=== PATIENT | female | born 1930 | race Caucasian/White ===

== ENCOUNTER 2017-01-20 18:34 | Observation (INO) | payer OTHER ==
[2017-01-20 20:15] LABS: BASOPHIL 0.4 % (0-2.0); EOSINOPHIL 1.7 % (0-4.5); MCH 27.8 pg (25.7-33.7); MCHC 32.8 g/dl (32.0-36.0); MEAN CELL VOLUME 84.9 fl (80-96); MEAN PLT VOLUME 9.2 fl (7.5-11.1); NEUTROPHILS 77.7 % (42.8-82.8); PLATELET COUNT 167 K/MM3 (134-434); RDW 16.2 % (11.6-15.6); WHITE BLOOD COUNT 5.8 K/mm3 (4.0-10.0)
--- NOTE | 2017-01-20 20:30 | PDOC ---
History of Present Illness <Raman Cabrera - Last Filed: 01/20/17 20:57> - General History Source: Patient, Family (Daughter), Old Records Exam Limitations: No Limitations - History of Present Illness Initial Comments: 01/20/17 21:59 The patient is an 86 year old female, with a significant past medical history of hypertension, hyperlipidemia, diabetes and Parkinsons disease, who presents to the emergency department sent by her PCP (Dr. Valentino) for evaluation and likely admission secondary to right hip pain s/p a mechanical trip and fall approximately 9 days ago. The patients daughter is at the bedside. She reports that the patient had outpatient x-rays of the right knee and right hip done after she fell, which were both negative for any acute fracture or dislocation. When the right hip pain persisted, the patient was referred for an MRI but was unable to undergo an MRI as an outpatient due to anxiety and claustrophobia. Therefore, the patient presents to the ED for likely admission to receive the MRI with sedation. The patient denies any extremity numbness/tingling. The patient denies back pain. The patients daughter is at the bedside. Allergies: None reported. Past Surgical History: Appendectomy. Social History: Non smoker. Denies alcohol or drug use. PCP: Dr. Valentino <Georgiana Vega - Last Filed: 01/21/17 00:58> - General Chief Complaint: Pain Stated Complaint: PCP ADMIT Time Seen by Provider: 01/20/17 19:32 Past History - Past Medical History Diabetes: Yes HTN: Yes - Surgical History Appendectomy: Yes - Psycho/Social/Smoking Cessation Hx Anxiety: No Suicidal Ideation: No Smoking Status: No Smoking History: Never smoked Have you smoked in the past 12 months: No Number of Cigarettes Smoked Daily: 0 Information on smoking cessation initiated: No Hx Alcohol Use: No Drug/Substance Use Hx: No Substance Use Type: None <Raman Cabrera - Last Filed: 01/20/17 20:57> <Georgiana Vega - Last Filed: 01/21/17 00:58> - Past Medical History Allergies/Adverse Reactions: Allergies Allergy/AdvReac Type Severity Reaction Status Date / Time No Known Allergies Allergy Verified 01/20/17 18:45 Home Medications: Ambulatory Orders Aspirin [Aspirin EC] 81 mg PO HS 01/20/17 Atorvastatin Ca [Lipitor] 10 mg PO HS 01/20/17 Carbidopa/Levodopa *Cr* 25/100 [Sinemet *Cr* 25/100 -] 1 combo PO BID 01/20/17 Carbidopa/Levodopa [Carbidopa-Levo 25-100 mg Odt] 1.5 mg PO QID 01/20/17 Cholecalciferol (Vitamin D3) [Vitamin D3 -] 1,000 unit PO DAILY 01/20/17 Duloxetine HCl [Cymbalta] 60 mg PO DAILY 01/20/17 Furosemide [Lasix] 20 mg PO DAILY 01/20/17 Gabapentin [Neurontin -] 100 mg PO DAILY 01/20/17 Metformin HCl 1,000 mg PO BID 01/20/17 Potassium Chloride [K-Dur -] 20 meq PO DAILY 01/20/17 Pramipexole Dihydrochloride [Mirapex -] 0.125 mg PO DAILY 01/20/17 Rotigotine [Neupro] 8 mg TD DAILY 01/20/17 Ubidecarenone/Vitamin E [Co Q-10 50 mg Softgel] 1 each PO DAILY 01/20/17 Vitamin B Complex [Ultra B-100 Complex] 1 each PO DAILY 01/20/17 Review of Systems - Review of Systems Able to Perform ROS?: Yes Comments:: 01/20/17 21:08 CONSTITUTIONAL: No fever, no chills, no fatigue EYES: No visual changes ENT: No ear pain, no sore throat CARDIOVASCULAR: No chest pain, no palpitations RESPIRATORY: No cough, no SOB GI: No abdominal pain, no nausea, no vomiting, no constipation, no diarrhea GENITOURINARY: No dysuria, no frequency, no hematuria MUSCULOSKELETAL: +Right hip pain. No back pain, no myalgias SKIN: No rash NEURO: No headache <Georgiana Vega - Last Filed: 01/21/17 00:58> *Physical Exam - Vital Signs Last Vital Signs Temp Pulse Resp BP Pulse Ox 98 F 79 18 146/69 100 01/20/17 18:45 01/20/17 18:45 01/20/17 18:45 01/20/17 18:45 01/20/17 18:45 <Raman Cabrera - Last Filed: 01/20/17 20:57> - Vital Signs Last Vital Signs Temp Pulse Resp BP Pulse Ox 98 F 79 18 146/69 100 01/20/17 18:45 01/20/17 18:45 01/20/17 18:45 01/20/17 18:45 01/20/17 18:45 - Physical Exam Comments: 01/21/17 00:58 CONSTITUTIONAL: Well-appearing; well-nourished; in no apparent distress. HEAD: Normocephalic; atraumatic. EYES: PERRL; EOM intact. ENMT: External appears normal; normal oropharynx. NECK: Supple; non-tender; no cervical lymphadenopathy. CARD: Normal S1, S2; no murmurs, rubs, or gallops. RESP: Normal chest excursion with respiration; breath sounds clear and equal bilaterally; no wheezes, rhonchi, or rales. ABD: Soft, non-distended; non-tender; no palpable organomegaly, no palpable hernias. EXT: No obvious deformity. Pain to right proximal hip and pain with log roll of the right lower extremity. Distal pulses intact. SKIN: Warm, dry, no rash. NEURO: Resting tremor bilaterally, more pronounced on the left. Cogwheel rigidity. No focal neurological deficiencies. Normal speech, gait deferred. <Georgiana Vega - Last Filed: 01/21/17 00:58> Heart Score/ECG Review #1 ECG reviewed & interpreted by me at: 19:51 (Vent Rate: 81 bpm. Normal sinus rhythm. Left axis deviation.) <Georgiana Vega - Last Filed: 01/21/17 00:58> ED Treatment Course - LABORATORY CBC & Chemistry Diagram: 01/20/17 20:00 01/20/17 20:00 - ADDITIONAL ORDERS Additional order review: 01/20/17 20:00 RBC 4.23 MCV 84.9 MCHC 32.8 RDW 16.2 H MPV 9.2 Neutrophils % 77.7 Lymphocytes % 14.3 Monocytes % 5.9 Eosinophils % 1.7 Basophils % 0.4 <Raman Cabrera - Last Filed: 01/20/17 20:57> - LABORATORY CBC & Chemistry Diagram: 01/20/17 20:00 01/20/17 20:00 - ADDITIONAL ORDERS Additional order review: 01/20/17 20:00 RBC 4.23 MCV 84.9 MCHC 32.8 RDW 16.2 H MPV 9.2 Neutrophils % 77.7 Lymphocytes % 14.3 Monocytes % 5.9 Eosinophils % 1.7 Basophils % 0.4 <Georgiana Vega - Last Filed: 01/21/17 00:58> Medical Decision Making - Medical Decision Making 01/20/17 20:58 patient is an 86-year-old female with History of diabetes, hypertension and hyperlipidemia referred by Dr. Serna orthopedics for intractable right hip pain after an injury 9 days ago. Patient underwent initial radiological evaluation with x-rays which revealed no evidence of fracture or dislocation. Patient was referred for further evaluation with MRI. Patient will require sedation prior to undergoing the MRI due to anxiety and claustrophobia. <Raman Cabrera - Last Filed: 01/20/17 20:57> - Medical Decision Making 01/20/17 20:[address] Valentino at 20:43. Referred to answering service, awaiting call back. Dr. Ochoa returned call at 20:52, case discussed. <Georgiana Vega - Last Filed: 01/21/17 00:58> *DC/Admit/Observation/Transfer - Discharge Dispostion Admit: Yes - Attestations Physician Attestion: 01/20/17 20:58 The documentation was prepared by the scribe under my direct supervision. I have reviewed the documentation which correctly represents the findings, medical decision-making and critical action taken by me. <Raman Cabrera - Last Filed: 01/20/17 20:57> - Attestations Scribe Attestion: 01/20/17 20:33 Documentation prepared by Georgiana Vega, acting as biomedical engineering internship for Raman Cabrera MD. <Georgiana Vega - Last Filed: 01/21/17 00:58> Diagnosis at time of Disposition: Intractable pain Hip injury Qualifiers: Encounter type: sequela Laterality: right Qualified Code(s): S79.911S - Unspecified injury of right hip, sequela - Referrals
[2017-01-20 20:34] LABS: INR 1.13 (0.82-1.09); PROTHROMBIN TIME (PATIENT) 12.5 SEC (9.98-11.88)
[2017-01-20 20:43] LABS: ALBUMIN 4.2 g/dl (3.4-5.0); ANION GAP 10 (8-16); BILIRUBIN,TOTAL 0.7 mg/dL (0.2-1.0); CO2 26 mmol/L (21-32); COCKROFT - GAULT 103.1135; CREATININE 0.6 mg/dL (0.55-1.02); GLUCOSE,RANDOM 132 mg/dL (74-106); SGOT/AST 17 U/L (15-37); SGPT/ALT 9 U/L (12-78); TOT PROT 7.1 g/dl (6.4-8.2)
[2017-01-20 20:44] LABS: ALK PHOS 99 U/L (45-117)
[2017-01-20] MEDS ORDERED: ONDANSETRON 4 MG/2 ML VIAL IVPB PRN (20:53)
[2017-01-20] MEDS ORDERED: oxyCODONE HCL 5 MG TABLET PO PRN (20:53)
[2017-01-20] MEDS ORDERED: ACETAMINOPHEN 325 MG TABLET (FP) PO PRN (20:53)
[2017-01-20] MEDS ORDERED: LEVODOPA PO SCH (21:00)
[2017-01-20] MEDS ORDERED: CARBIDOPA PO SCH (21:00)
[2017-01-20] MEDS ORDERED: [UNRECOGNIZED DRUG - OTHER] PO SCH (21:00)
[2017-01-20] MEDS ORDERED: CARBIDOPA/LEVODOPA 25/100 TABLET (FP) ONE (21:02)
[2017-01-20] MEDS: INSULIN SLIDING SCALE (NOVOLOG) 1 VIAL SQ SCH (23:04)
[2017-01-20] MEDS: DOCUSATE SODIUM 100 MG CAPSULE (FP) PO SCH (23:07)
[2017-01-20] MEDS: metFORMIN HCL 500 MG TABLET (FP) PO SCH (23:07)
[2017-01-20] MEDS: ATORVASTATIN CA 10 MG TABLET (FP) PO SCH (23:08)
[2017-01-21] MEDS: ASPIRIN COATED 81 MG TABLET.EC PO SCH ×2 (00:09→22:43)
[2017-01-21 05:19] VITALS: BMI 40.3
[2017-01-21] MEDS: INSULIN SLIDING SCALE (NOVOLOG) 1 VIAL SQ SCH ×4 (06:22→22:35)
[2017-01-21] MEDS: CARBIDOPA/LEVODOPA 25/100 TABLET (FP) PO SCH ×4 (08:15→20:06)
[2017-01-21] MEDS ORDERED: LORazepam 1 MG TABLET PO ONE ×2 (09:10→20:00)
[2017-01-21] MEDS ORDERED: GABAPENTIN 100 MG CAPSULE (FP) PO SCH (10:00)
[2017-01-21] MEDS ORDERED: ASPIRIN COATED 81 MG TABLET.EC PO SCH (10:00)
[2017-01-21] MEDS ORDERED: DULoxetine HCL 30 MG CAPSULE.DR (FP) PO SCH ×2 (10:00→11:21)
[2017-01-21] MEDS ORDERED: POTASSIUM CHLORIDE TABS 20 MEQ TABLET.ER (FP) PO SCH (10:00)
[2017-01-21] MEDS ORDERED: CHOLECALCIFEROL (VITAMIN D3) 400 UNIT TABLET (FP) PO SCH (10:00)
[2017-01-21] MEDS ORDERED: metFORMIN HCL 500 MG TABLET (FP) PO SCH (11:21)
[2017-01-21] MEDS ORDERED: INSULIN (NOVOLOG) ASPART 100 UNITS/ML 10ML VIAL ONE (11:22)
--- NOTE | 2017-01-21 11:24 | EKG ---
Test Reason : Blood Pressure : / mmHG Vent. Rate : 081 BPM Atrial Rate : 081 BPM P-R Int : 138 ms QRS Dur : 082 ms QT Int : 376 ms P-R-T Axes : 029 -37 029 degrees QTc Int : 436 ms NORMAL SINUS RHYTHM LEFT AXIS DEVIATION ABNORMAL ECG WHEN COMPARED WITH ECG OF 18-SEP-1997 10:38, NONSPECIFIC T WAVE ABNORMALITY NO LONGER EVIDENT IN INFERIOR LEADS Confirmed by DAVONTE MILNER MD ([id number]) on 01/21/2017 11:24:02 AM Referred By: Confirmed By:DAVONTE MILNER MD
[2017-01-21] MEDS: PRAMIPEXOLE DIHYDROCHLORIDE 0.125 MG TABLET PO SCH (11:30)
[2017-01-21] MEDS: FUROSEMIDE 20 MG TABLET (FP) PO SCH (11:31)
[2017-01-21] MEDS: DOCUSATE SODIUM 100 MG CAPSULE (FP) PO SCH ×3 (11:31→22:46)
[2017-01-21] MEDS: metFORMIN HCL 500 MG TABLET (FP) PO SCH ×2 (11:32→22:43)
[2017-01-21] MEDS: ENOXAPARIN NA (PORCINE) 40 MG/0.4 ML DISP.SYRIN SQ SCH (11:40)
[2017-01-21] MEDS: POLYETHYLENE GLYCOL 3350 119 GM BTL PO SCH (11:47)
--- NOTE | 2017-01-21 11:55 | HP ---
Admitting History and Physical - Primary Care Physician PCP: Seferino Valentino - Admission Chief Complaint: I fell History of Present Illness: Ms Albetrs is a very pleasant 86 year old female who was sent in by Dr Woodruff for concern for hip fracture. 9 days ago she was in the kitchen and sustained a mechanical fall. She denies the fall was secondary to syncope. She did not sustain head trauma. Originally she felt fine but the pain was increasing so she presented to Dr Valentino. She was then referred to Dr Woodruff who attempted to perform an MRI as an outpatient but was unsuccessful secondary to anxiety. She was referred here for admission since hip needs to be evaluated and it was unsuccessful as an outpatient. Today she says she feels weak and has pain. She has been able to walk. She denies fevers, chills, lightheadedness, dizziness, passing out, chest pain or pressure, shortness of breath, nausea, vomiting, diarrhea, constipation, difficulty or pain on urination, or swelling. 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 Cardiovascular: Yes: HTN, Hyperlipdemia ...: No Endocrine: Yes: Diabetes Mellitus - Past Surgical History Past Surgical History: Yes: Cataract Removal - Smoking History Smoking history: Never smoked Have you smoked in the past 12 months: No Aproximately how many cigarettes per day: 0 - Alcohol/Substance Use Hx Alcohol Use: No History of Substance Use: reports: None - Social History Usual Living Arrangement: Yes: Alone ADL: Independent Home Medications - Allergies Allergies/Adverse Reactions: Allergies Allergy/AdvReac Type Severity Reaction Status Date / Time No Known Allergies Allergy Verified 01/20/17 18:45 - Home Medications Home Medications: Ambulatory Orders Aspirin [Aspirin EC] 81 mg PO HS 01/20/17 Atorvastatin Ca [Lipitor] 10 mg PO HS 01/20/17 Carbidopa/Levodopa *Cr* 25/100 [Sinemet *Cr* 25/100 -] 1 combo PO BID 01/20/17 Carbidopa/Levodopa [Carbidopa-Levo 25-100 mg Odt] 1.5 mg PO QID 01/20/17 Cholecalciferol (Vitamin D3) [Vitamin D3 -] 1,000 unit PO DAILY 01/20/17 Duloxetine HCl [Cymbalta] 60 mg PO DAILY 01/20/17 Furosemide [Lasix] 20 mg PO DAILY 01/20/17 Gabapentin [Neurontin -] 100 mg PO DAILY 01/20/17 Metformin HCl 1,000 mg PO BID 01/20/17 Potassium Chloride [K-Dur -] 20 meq PO DAILY 01/20/17 Pramipexole Dihydrochloride [Mirapex -] 0.125 mg PO DAILY 01/20/17 Rotigotine [Neupro] 8 mg TD DAILY 01/20/17 Ubidecarenone/Vitamin E [Co Q-10 50 mg Softgel] 1 each PO DAILY 01/20/17 Vitamin B Complex [Ultra B-100 Complex] 1 each PO DAILY 01/20/17 Family Disease History - Family Disease History Family Disease History: Diabetes: Sister Review of Systems Findings/Remarks: Full review of systems obtained, as per HPI and otherwise negative. Physical Examination Vital Signs: Vital Signs Temperature 98 F 01/21/17 05:00 Pulse Rate 76 01/21/17 05:00 Respiratory Rate 18 01/21/17 05:00 Blood Pressure 154/90 01/21/17 05:00 O2 Sat by Pulse Oximetry (%) 96 01/21/17 05:33 Constitutional: Yes: Well Nourished, No Distress, Calm Eyes: Yes: Conjunctiva Clear, EOM Intact, PERRL HENT: Yes: Atraumatic, Normocephalic Cardiovascular: Yes: Regular Rate and Rhythm. No: Gallop, Murmur, Rub Respiratory: Yes: Regular, CTA Bilaterally. No: Rales, Rhonchi, Wheezes Gastrointestinal: Yes: Normal Bowel Sounds, Soft. No: Distention, Tenderness Extremities: Yes: WNL Edema: No Labs: Laboratory Results - last 24 hr 01/20/17 01/20/17 01/20/17 20:00 20:00 20:00 WBC 5.8 RBC 4.23 Hgb 11.8 Hct 35.9 MCV 84.9 MCHC 32.8 RDW 16.2 H Plt Count 167 MPV 9.2 Neutrophils % 77.7 Lymphocytes % 14.3 Monocytes % 5.9 Eosinophils % 1.7 Basophils % 0.4 INR 1.13 Sodium 141 Potassium 4.5 Chloride 105 Carbon Dioxide 26 Anion Gap 10 BUN 26 H Creatinine 0.6 Creat Clearance w eGFR > 60 POC Glucometer Random Glucose 132 H Calcium 9.0 Total Bilirubin 0.7 AST 17 ALT 9 L Alkaline Phosphatase 99 Total Protein 7.1 Albumin 4.2 Blood Type Antibody Screen Spec Expiration Date 01/20/17 01/20/17 01/21/17 20:00 22:51 06:22 WBC RBC Hgb Hct MCV MCHC RDW Plt Count MPV Neutrophils % Lymphocytes % Monocytes % Eosinophils % Basophils % INR Sodium Potassium Chloride Carbon Dioxide Anion Gap BUN Creatinine Creat Clearance w eGFR POC Glucometer 129 126 Random Glucose Calcium Total Bilirubin AST ALT Alkaline Phosphatase Total Protein Albumin Blood Type Cancelled Antibody Screen Cancelled Spec Expiration Date Cancelled Imaging - Results EKG: Image Reviewed Problem List - Problems (1) Hip injury Assessment/Plan: -patient presents from outpatient for MRI, unable to do as an outpatient -admitted under observation -needs MRI to evaluate for possible fracture -case d/w ortho, requested Dr Woodruff to call radiology about need for MRI in the hospital -concern for hip fracture, will need ortho clearance before discharging Code(s): S79.919A - UNSPECIFIED INJURY OF UNSPECIFIED HIP, INITIAL ENCOUNTER Qualifiers: Encounter type: initial encounter Laterality: right Qualified Code(s): S79.911A - Unspecified injury of right hip, initial encounter (2) HTN (hypertension) Assessment/Plan: -patient on benicar HCT at home -will place on losartan HCT while here -monitor -continue lasix Code(s): I10 - ESSENTIAL (PRIMARY) HYPERTENSION (3) Diabetes Assessment/Plan: -well controlled -diabetic diet -continue metformin, dose clarified Code(s): E11.9 - TYPE 2 DIABETES MELLITUS WITHOUT COMPLICATIONS (4) Parkinson disease Assessment/Plan: -continue sinemet, cymbalta, neurontin, and pramipexole -stable Code(s): G20 - PARKINSON'S DISEASE
[2017-01-21] MEDS ORDERED: LORAZEPAM CARPU-JECT 2 MG/ML DISP.SYRIN IVPUSH ONE ×2 (12:53→20:15)
[2017-01-21] MEDS: LOSARTAN 50MG/HCTZ 12.5MG 1 TAB (FP) PO SCH (14:14)
[2017-01-21] MEDS: ATORVASTATIN CA 10 MG TABLET (FP) PO SCH (22:43)
[2017-01-21] MEDS ORDERED: ATORVASTATIN CA 10 MG TABLET (FP) PO SCH (22:45)
[2017-01-22] MEDS: INSULIN SLIDING SCALE (NOVOLOG) 1 VIAL SQ SCH ×2 (06:21→11:50)
[2017-01-22] MEDS: CARBIDOPA/LEVODOPA 25/100 TABLET (FP) PO SCH ×2 (08:00→11:45)
[2017-01-22] MEDS ORDERED: PT OWN MED DRAWER 7, Y5N ONE (09:50)
[2017-01-22] MEDS ORDERED: GABAPENTIN 100 MG CAPSULE (FP) PO SCH (10:00)
[2017-01-22] MEDS ORDERED: CHOLECALCIFEROL (VITAMIN D3) 400 UNIT TABLET (FP) PO SCH (10:00)
[2017-01-22] MEDS ORDERED: POTASSIUM CHLORIDE TABS 20 MEQ TABLET.ER (FP) PO SCH (10:00)
[2017-01-22] MEDS: DOCUSATE SODIUM 100 MG CAPSULE (FP) PO SCH (10:12)
[2017-01-22] MEDS: metFORMIN HCL 500 MG TABLET (FP) PO SCH (10:12)
[2017-01-22] MEDS: PRAMIPEXOLE DIHYDROCHLORIDE 0.125 MG TABLET PO SCH (10:12)
[2017-01-22] MEDS: FUROSEMIDE 20 MG TABLET (FP) PO SCH (10:13)
[2017-01-22] MEDS: ENOXAPARIN NA (PORCINE) 40 MG/0.4 ML DISP.SYRIN SQ SCH (10:16)
[2017-01-22] MEDS: POLYETHYLENE GLYCOL 3350 119 GM BTL PO SCH (10:16)
[2017-01-22] MEDS: LOSARTAN 50MG/HCTZ 12.5MG 1 TAB (FP) PO SCH (11:43)
--- NOTE | 2017-01-22 12:17 | CONSULT ---
Consult - History of Present Illness Chief Complaint: Pain in right hip History of Present Illness: 86y/o female here for evaluation of her right hip. She fell approx 11 days ago and was having a lot of pain on the right side. She had an x-ray at that time of the hip which was negative. She continued to have pain and was seen by Dr. Serna and referred for an MRI. She was unable to get the MRI as an outpatient and was admitted for the study. She denies any pain today. She has been able to walk with a walker without pain. There are no other associated, aggravating or relieving factors. 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 Cardio/Vascular: Yes: HTN, Hyperlipdemia ...: No Endocrine: Yes: Diabetes Mellitus - Past Surgical History Past Surgical History: Yes: Cataract Removal - Alcohol/Substance Use Hx Alcohol Use: No History of Substance Use: reports: None - Smoking History Smoking history: Never smoked Have you smoked in the past 12 months: No Aproximately how many cigarettes per day: 0 - Social History ADL: Independent Home Medications - Allergies Allergies/Adverse Reactions: Allergies Allergy/AdvReac Type Severity Reaction Status Date / Time No Known Allergies Allergy Verified 01/20/17 18:45 - Home Medications Home Medications: Ambulatory Orders Aspirin [Aspirin EC] 81 mg PO HS 01/20/17 Atorvastatin Ca [Lipitor] 10 mg PO HS 01/20/17 Carbidopa/Levodopa *Cr* 25/100 [Sinemet *Cr* 25/100 -] 1 combo PO BID 01/20/17 Carbidopa/Levodopa [Carbidopa-Levo 25-100 mg Odt] 1.5 mg PO QID 01/20/17 Cholecalciferol (Vitamin D3) [Vitamin D3 -] 1,000 unit PO DAILY 01/20/17 Duloxetine HCl [Cymbalta] 60 mg PO DAILY 01/20/17 Furosemide [Lasix] 20 mg PO DAILY 01/20/17 Gabapentin [Neurontin -] 100 mg PO DAILY 01/20/17 Metformin HCl 1,000 mg PO BID 01/20/17 Potassium Chloride [K-Dur -] 20 meq PO DAILY 01/20/17 Pramipexole Dihydrochloride [Mirapex -] 0.125 mg PO DAILY 01/20/17 Rotigotine [Neupro] 8 mg TD DAILY 01/20/17 Ubidecarenone/Vitamin E [Co Q-10 50 mg Softgel] 1 each PO DAILY 01/20/17 Vitamin B Complex [Ultra B-100 Complex] 1 each PO DAILY 01/20/17 Family Disease History - Family Disease History Family Disease History: Diabetes: Sister Review of Systems - Review of Systems Constitutional: reports: No Symptoms Eyes: reports: No Symptoms HENT: reports: No Symptoms Neck: reports: No Symptoms Cardiovascular: reports: No Symptoms Respiratory: reports: No Symptoms Gastrointestinal: reports: No Symptoms Genitourinary: reports: No Symptoms Breasts: reports: No Symptoms Reported Musculoskeletal: reports: No Symptoms Integumentary: reports: No Symptoms Neurological: reports: No Symptoms Endocrine: reports: No Symptoms Hematology/Lymphatic: reports: No Symptoms Psychiatric: reports: No Symptoms Physical Exam Vital Signs: Vital Signs Temperature 98.4 F 01/22/17 04:57 Pulse Rate 96 H 01/22/17 04:57 Respiratory Rate 18 01/22/17 04:57 Blood Pressure 123/92 01/22/17 04:57 O2 Sat by Pulse Oximetry (%) 96 01/22/17 05:28 Constitutional: Yes: Well Nourished, No Distress HENT: Yes: Atraumatic, Normocephalic Extremities: Yes: Other (Pelvis: No open wounds. No erythema or ecchymosis. No tenderness to palpation. Smooth ROM of the Hips, Knees and ankles. She is able to stand with walker without pain. NVID.) Imaging - Results X-ray: Report Reviewed, Image Reviewed MRI: Report Reviewed, Image Reviewed (Nodisplaced pubic ramus fracture on right. ) Assessment/Plan #1 right nondisplaced pubic ramus fracture -Pt is currently not having any pain and can ambulate with a walker -Discharge home, PT WBAT
[2017-01-22 12:32] VITALS: BP 108/50; PULSE 74; TEMP 98.3
--- NOTE | 2017-01-22 22:00 | PN ---
Progress Note, Physician Chief Complaint: C/o Pain Rt Hip History of Present Illness: 86 year old h/o HTN, T2DM, Hyperlipedemia admitted for evaluation of Rt Hip pain for past 9 after sustaining a mechanical fall, patient is able to ambulate but c/o Pain Rt trachanteric area, so admitted to r/o RtHip fracture and inpatient MRI, patient underwent MRI that shows no fracture, mild soft tissue swelling over Rt greater trochanter, evaluated by orthopaedics and PT and discahrged to Home with a walker. - Current Medication List Current Medications: Home Medication List Medication Instructions Recorded Confirmed Type Aspirin [Aspirin EC] 81 mg PO HS 01/20/17 01/20/17 History Atorvastatin Ca [Lipitor] 10 mg PO HS 01/20/17 01/20/17 History Carbidopa/Levodopa *Cr* 25/100 1 combo PO BID 01/20/17 01/20/17 History [Sinemet *Cr* 25/100 -] Carbidopa/Levodopa [Carbidopa-Levo 1.5 mg PO QID 01/20/17 01/20/17 History 25-100 mg Odt] Cholecalciferol (Vitamin D3) 1,000 unit PO DAILY 01/20/17 01/20/17 History [Vitamin D3 -] Duloxetine HCl [Cymbalta] 60 mg PO DAILY 01/20/17 01/20/17 History Furosemide [Lasix] 20 mg PO DAILY 01/20/17 01/20/17 History Gabapentin [Neurontin -] 100 mg PO DAILY 01/20/17 01/20/17 History Metformin HCl 1,000 mg PO BID 01/20/17 01/20/17 History Potassium Chloride [K-Dur -] 20 meq PO DAILY 01/20/17 01/20/17 History Pramipexole Dihydrochloride 0.125 mg PO DAILY 01/20/17 01/20/17 History [Mirapex -] Rotigotine [Neupro] 8 mg TD DAILY 01/20/17 01/20/17 History Ubidecarenone/Vitamin E [Co Q-10 1 each PO DAILY 01/20/17 01/20/17 History 50 mg Softgel] Vitamin B Complex [Ultra B-100 1 each PO DAILY 01/20/17 01/20/17 History Complex] - Objective Vital Signs: Vital Signs Temperature 98.3 F 01/22/17 10:00 Pulse Rate 74 01/22/17 10:00 Respiratory Rate 20 01/22/17 10:00 Blood Pressure 108/50 01/22/17 10:00 O2 Sat by Pulse Oximetry (%) 96 01/22/17 05:28 Constitutional: Yes: Well Nourished Eyes: Yes: WNL, Conjunctiva Clear, EOM Intact HENT: Yes: WNL, Atraumatic, Normocephalic Neck: Yes: WNL, Supple, Trachea Midline Cardiovascular: Yes: WNL, Regular Rate and Rhythm Respiratory: Yes: WNL, Regular, CTA Bilaterally Gastrointestinal: Yes: WNL, Normal Bowel Sounds, Soft ...Rectal Exam: Yes: Deferred Genitourinary: Yes: WNL. No: Anuria, Bladder Distention, CVA Tenderness - Left Musculoskeletal: Yes: Other (Mild Tenderness over greater trochanter) Edema: No Peripheral Pulses WNL: Yes Integumentary: Yes: WNL Neurological: Yes: WNL, Alert, Oriented ...Motor Strength: WNL Psychiatric: Yes: WNL, Alert, Oriented Labs: INR, PTT INR 1.13 (0.82-1.09) 01/20/17 20:00 - ....Imaging MRI: Report Reviewed Problem List - Problems (1) Diabetes Assessment/Plan: Cont Home medication F/U Fs HbA1C as out patient. Code(s): E11.9 - TYPE 2 DIABETES MELLITUS WITHOUT COMPLICATIONS (2) Hip injury Assessment/Plan: Rt Hip pian after fall MRI -ve soft tissue injury Rt Hip, Pain control, PT evaluation Code(s): S79.919A - UNSPECIFIED INJURY OF UNSPECIFIED HIP, INITIAL ENCOUNTER Qualifiers: Encounter type: initial encounter Laterality: right Qualified Code(s): S79.911A - Unspecified injury of right hip, initial encounter (3) Parkinson disease Assessment/Plan: Chronic cont Home meds Code(s): G20 - PARKINSON'S DISEASE (4) HTN (hypertension) Assessment/Plan: Well controlled cont home meds Code(s): I10 - ESSENTIAL (PRIMARY) HYPERTENSION
--- NOTE | 2017-01-24 08:02 | DS ---
Physical Examination Vital Signs: Vital Signs Temperature 98.3 F 01/22/17 10:00 Pulse Rate 74 01/22/17 10:00 Respiratory Rate 20 01/22/17 10:00 Blood Pressure 108/50 01/22/17 10:00 O2 Sat by Pulse Oximetry (%) 96 01/22/17 05:28 Constitutional: Yes: Well Nourished, No Distress, Calm Eyes: Yes: WNL, Conjunctiva Clear, EOM Intact HENT: Yes: WNL, Atraumatic, Normocephalic Neck: Yes: WNL, Supple, Trachea Midline Cardiovascular: Yes: WNL, Regular Rate and Rhythm Respiratory: Yes: WNL, Regular, CTA Bilaterally Gastrointestinal: Yes: WNL, Normal Bowel Sounds, Soft Musculoskeletal: Yes: Other (Rt Greater trochanter tenderness) Extremities: Yes: WNL Edema: No Peripheral Pulses WNL: Yes Integumentary: Yes: WNL Neurological: Yes: WNL, Alert, Oriented ...Motor Strength: WNL Psychiatric: Yes: WNL Labs: CBC WBC 5.8 K/mm3 (4.0-10.0) 01/20/17 20:00 RBC 4.23 M/mm3 (3.60-5.2) 01/20/17 20:00 Hgb 11.8 GM/dL (10.7-15.3) 01/20/17 20:00 Hct 35.9 % (32.4-45.2) 01/20/17 20:00 MCV 84.9 fl (80-96) 01/20/17 20:00 MCHC 32.8 g/dl (32.0-36.0) 01/20/17 20:00 RDW 16.2 % (11.6-15.6) H 01/20/17 20:00 Plt Count 167 K/MM3 (134-434) 01/20/17 20:00 MPV 9.2 fl (7.5-11.1) 01/20/17 20:00 Neutrophils % 77.7 % (42.8-82.8) 01/20/17 20:00 Lymphocytes % 14.3 % (8-40) 01/20/17 20:00 Monocytes % 5.9 % (3.8-10.2) 01/20/17 20:00 Eosinophils % 1.7 % (0-4.5) 01/20/17 20:00 Basophils % 0.4 % (0-2.0) 01/20/17 20:00 Discharge Summary Reason For Visit: INTRACTABLE PAIN Rt hip Pain Hospital Course: Patient was admitted with Rt Hip pain after sustaining a fall, MRI shows no fracture mild inflammation around Rt trochnater , PT evaluated recommended a walker , Orthopaedics, recommended pain control and Physical therapy. Condition: Good - Instructions Diet, Activity, Other Instructions: Pt has soft tissue swelling around Rt greater trocahnter after sustaining a fall advised; PT evaluation. Referrals: Seferino Valentino MD [Primary Care Provider] - Disposition: HOME - Home Medications Comprehensive Discharge Medication List: Ambulatory Orders Aspirin [Aspirin EC] 81 mg PO HS 01/20/17 Atorvastatin Ca [Lipitor] 10 mg PO HS 01/20/17 Carbidopa/Levodopa *Cr* 25/100 [Sinemet *Cr* 25/100 -] 1 combo PO BID 01/20/17 Carbidopa/Levodopa [Carbidopa-Levo 25-100 mg Odt] 1.5 mg PO QID 01/20/17 Cholecalciferol (Vitamin D3) [Vitamin D3 -] 1,000 unit PO DAILY 01/20/17 Duloxetine HCl [Cymbalta] 60 mg PO DAILY 01/20/17 Furosemide [Lasix] 20 mg PO DAILY 01/20/17 Gabapentin [Neurontin -] 100 mg PO DAILY 01/20/17 Metformin HCl 1,000 mg PO BID 01/20/17 Potassium Chloride [K-Dur -] 20 meq PO DAILY 01/20/17 Pramipexole Dihydrochloride [Mirapex -] 0.125 mg PO DAILY 01/20/17 Rotigotine [Neupro] 8 mg TD DAILY 01/20/17 Ubidecarenone/Vitamin E [Co Q-10 50 mg Softgel] 1 each PO DAILY 01/20/17 Vitamin B Complex [Ultra B-100 Complex] 1 each PO DAILY 01/20/17
== END 2017-01-22 13:30 | disposition home or self-care (01) ==
LOC: JER 18:34 → JERBED 20:57 → JER 21:20 → J6S 22:04
PROVIDERS: ADMIT Internal Medicine; ATTEND Internal Medicine
PROC: 3E033NZ Introduction of Analgesics, Hypnotics, Sedatives into Peripheral Vein, Percutaneous Approach (ICD-10-PCS; principal; 2017-01-20)
DX: S32.591S Other specified fracture of right pubis, sequela (principal); I10 Essential (primary) hypertension; E78.5 Hyperlipidemia, unspecified; E11.9 Type 2 diabetes mellitus without complications; G20 Parkinson's disease; W18.39XS Other fall on same level, sequela
CPT/HCPCS: 36415; 73721-RT-TC; 80053; 85025; 85610; 93005; 93010; 97116-GP; 97161-GP; 99282-25; 99284-25; G0378

== ENCOUNTER 2017-06-28 19:40 | Inpatient (IN) | payer OTHER ==
--- NOTE | 2017-06-28 20:08 | PDOC ---
History of Present Illness - General History Source: Patient Exam Limitations: No Limitations - History of Present Illness Initial Comments: 06/28/17 20:15 The patient is an 86 year old female who lives at home with a significant PMH of HTN, hyperlipidemia, diabetes, and Parkinsons disease who presents to the emergency department with weakness and shaking beginning approximately this afternoon. The patient reports wanting to get dressed to go for her regular walk but being unable to because she was shaking excessively. The patient also reports having a headache earlier today which has since resolved. The patient denies chest pain, shortness of breath and dizziness. Denies fever, chills, nausea, vomit, diarrhea and constipation. Denies dysuria, frequency, urgency and hematuria. Allergies: NKA Past surgical history: Appendectomy Social history: No reported cigarette, alcohol, or drug use. PCP: Dr. Valentino <Kalin Vitale - Last Filed: 06/28/17 20:44> - General History Source: Patient <Garry Strange - Last Filed: 06/28/17 22:34> - General Stated Complaint: WEAKNESS Time Seen by Provider: 06/28/17 20:08 Past History <Kalin Vitale - Last Filed: 06/28/17 20:44> - Past Medical History Diabetes: Yes HTN: Yes - Surgical History Appendectomy: Yes - Suicide/Smoking/Psychosocial Hx Smoking Status: No Smoking History: Never smoked Have you smoked in the past 12 months: No Number of Cigarettes Smoked Daily: 0 Hx Alcohol Use: No Drug/Substance Use Hx: No Substance Use Type: None Hx Substance Use Treatment: No <Garry Strange - Last Filed: 06/28/17 22:34> - Past Medical History Allergies/Adverse Reactions: Allergies Allergy/AdvReac Type Severity Reaction Status Date / Time No Known Allergies Allergy Verified 06/28/17 20:10 Home Medications: Ambulatory Orders Aspirin [Aspirin EC] 81 mg PO HS 01/20/17 Atorvastatin Ca [Lipitor] 10 mg PO HS 01/20/17 Carbidopa/Levodopa *Cr* 25/100 [Sinemet *Cr* 25/100 -] 1 combo PO HS 01/20/17 Carbidopa/Levodopa [Carbidopa-Levo 25-100 mg Odt] 2 mg PO QID 01/20/17 Cholecalciferol (Vitamin D3) [Vitamin D3 -] 1,000 unit PO DAILY 01/20/17 Duloxetine HCl [Cymbalta] 60 mg PO DAILY 01/20/17 Furosemide [Lasix] 20 mg PO DAILY 01/20/17 Gabapentin [Neurontin -] 100 mg PO DAILY 01/20/17 Metformin HCl 1,000 mg PO BID 01/20/17 Potassium Chloride [K-Dur -] 20 meq PO DAILY 01/20/17 Rotigotine [Neupro] 8 mg TD DAILY 01/20/17 Ubidecarenone/Vitamin E [Co Q-10 50 mg Softgel] 1 each PO DAILY 01/20/17 Vitamin B Complex [Ultra B-100 Complex] 1 each PO DAILY 01/20/17 Gabapentin [Neurontin -] 300 mg PO HS 06/28/17 Methenamine Hippurate [Hiprex [Nf] -] 1 gm PO DAILY 06/28/17 Olmesartan Medoxomil [Benicar (Nf)] 5 mg PO DAILY 06/28/17 Review of Systems - Review of Systems Able to Perform ROS?: Yes Comments:: 06/28/17 20:16 CONSTITUTIONAL: (+) Generalized weakness. (+) Shaking. Absent: fever, chills, diaphoresis, malaise, loss of appetite HEENT: Absent: rhinorrhea, nasal congestion, throat pain, throat swelling, difficulty swallowing, mouth swelling, ear pain, eye pain, visual Changes CARDIOVASCULAR: Absent: chest pain, syncope, palpitations, irregular heart rate, lightheadedness , peripheral edema RESPIRATORY: Absent: cough, shortness of breath, dyspnea with exertion, orthopnea, wheezing, stridor, hemoptysis GASTROINTESTINAL: Absent: abdominal pain, abdominal distension, nausea, vomiting, diarrhea, constipation, melena, hematochezia GENITOURINARY: Absent: dysuria, frequency, urgency, hesitancy, hematuria, flank pain, genital pain MUSCULOSKELETAL: Absent: myalgia, arthralgia, joint swelling SKIN: Absent: rash, itching, pallor HEMATOLOGIC/IMMUNOLOGIC: Absent: easy bleeding, easy bruising, lymphadenopathy, frequent infections ENDOCRINE: Absent: unexplained weight gain, unexplained weight loss, heat intolerance, cold intolerance NEUROLOGIC: (+) Headache (resolved). Absent: focal weakness or paresthesias, dizziness, unsteady gait, seizure, mental status changes, bladder or bowel incontinence PSYCHIATRIC: Absent: anxiety, depression, suicidal or homicidal ideation, hallucinations. <Kalin Vitale - Last Filed: 06/28/17 20:44> *Physical Exam - Vital Signs Last Vital Signs Temp Pulse Resp BP Pulse Ox 102.4 F H 102 H 20 132/49 94 L 06/28/17 20:10 06/28/17 20:10 06/28/17 20:10 06/28/17 20:10 06/28/17 20:10 - Physical Exam Comments: 06/28/17 20:16 GENERAL: (+) Fever (T. max 102.4). Well developed, well nourished. Awake and alert. No acute distress. HEENT: Normocephalic, atraumatic. PERRLA, EOMI. No conjunctival pallor. Sclera are non- icteric. Moist mucous membranes. Oropharynx is clear. NECK: Supple. Full ROM. No JVD. Carotid pulses 2+ and symmetric, without bruits. No thyromegaly. No lymphadenopathy. CARDIOVASCULAR: Regular rate and rhythm. No murmurs, rubs, or gallops. Distal pulses are 2+ and symmetric. PULMONARY: No evidence of respiratory distress. Lungs clear to auscultation bilaterally. No wheezing, rales or rhonchi. ABDOMINAL: Soft. Non-tender. Non-distended. No rebound or guarding. No organomegaly. Normoactive bowel sounds. MUSCULOSKELETAL Normal range of motion at all joints. No bony deformities or tenderness. No CVA tenderness. EXTREMITIES: No cyanosis. No clubbing. No edema. No calf tenderness. SKIN: Warm and dry. Normal capillary refill. No rashes. No jaundice. NEUROLOGICAL: (+) Bilateral resting tremors to upper extremities. Alert, awake, appropriate. Cranial nerves 2-12 intact. No deficits to light touch and temperature in face, upper extremities and lower extremities. No motor deficits in the in face and lower extremities. Normoreflexic in the lower extremities. Normal speech. Toes are downgoing bilaterally. PSYCHIATRIC: Cooperative. Good eye contact. Appropriate mood and affect. <Kalin Vitale - Last Filed: 06/28/17 20:44> Heart Score/ECG Review #1 06/28/17 20:44 Vent rate. 100 bpm Normal sinus rhythm Left axis deviation Low voltage QRS Nonspecific ST abnormality Abnormal ECG <Kalin Vitale - Last Filed: 06/28/17 20:44> ED Treatment Course - LABORATORY CBC & Chemistry Diagram: 06/28/17 20:30 06/28/17 20:30 <Garry Strange - Last Filed: 06/28/17 22:34> Medical Decision Making - Medical Decision Making 06/28/17 21:17 Dr. Strange: The scribe's documentation has been prepared under my direction and personally reviewed by me in its entirery. I confirm that the note above accurately reflects all work, treatment, procedures, and medical decision making performed by me. <Garry Strange - Last Filed: 06/28/17 22:34> *DC/Admit/Observation/Transfer - Attestations Scribe Attestion: 06/28/17 20:16 Documentation prepared by Kalin Vitale, acting as paramedical aide for Garry Strange DO. <Kalin Vitale - Last Filed: 06/28/17 20:44> - Discharge Dispostion Admit: Yes <Garry Strange - Last Filed: 06/28/17 22:34> Diagnosis at time of Disposition: Weakness UTI (urinary tract infection) Qualifiers: Hematuria presence: without hematuria - Referrals
[2017-06-28] MEDS ORDERED: ACETAMINOPHEN 325 MG TABLET (FP) PO ONE (20:13)
[2017-06-28] MEDS ORDERED: SODIUM CHLORIDE 1,000 ML IV STA (20:14)
[2017-06-28] MEDS ORDERED: ACETAMINOPHEN 325 MG TABLET (FP) ONE (20:42)
[2017-06-28 20:54] LABS: BASOPHIL 0.2 % (0-2.0); EOSINOPHIL 0.3 % (0-4.5); MCH 28.6 pg (25.7-33.7); MCHC 33.5 g/dl (32.0-36.0); MEAN CELL VOLUME 85.4 fl (80-96); MEAN PLT VOLUME 8.8 fl (7.5-11.1); NEUTROPHILS 89.2 % (42.8-82.8); PLATELET COUNT 148 K/MM3 (134-434); RDW 16.4 % (11.6-15.6); WHITE BLOOD COUNT 9.4 K/mm3 (4.0-10.0)
[2017-06-28 21:01] LABS: INR 1.29 (0.82-1.09); PROTHROMBIN TIME (PATIENT) 14.3 SEC (9.98-11.88)
[2017-06-28 21:12] LABS: ALBUMIN 3.8 g/dl (3.4-5.0); AMYLASE 52 U/L (25-115); ANION GAP 7 (8-16); CALCIUM 8.8 mg/dL (8.5-10.1); CO2 29 mmol/L (21-32); CREATININE 0.7 mg/dL (0.55-1.02); GLUCOSE,RANDOM 161 mg/dL (74-106); MAGNESIUM 1.6 mg/dL (1.8-2.4); SGOT/AST 5 U/L (15-37); SGPT/ALT 8 U/L (12-78)
[2017-06-28 21:27] LABS: ALK PHOS 84 U/L (45-117); BILIRUBIN,TOTAL 1.6 mg/dL (0.2-1.0); CPK 70 IU/L (26-192); TROPONIN I 0.03 ng/ml (0.00-0.05)
[2017-06-28 21:48] LABS: URINE APPEARANCE CLOUDY; URINE BILIRUBIN NEGATIVE (NEGATIVE); URINE BLOOD 1+ (NEGATIVE); URINE COLOR DKYELLOW; URINE GLUCOSE (UA) NEGATIVE (NEGATIVE); URINE KETONE TRACE (NEGATIVE); URINE NITRITE POSITIVE (NEGATIVE); URINE UROBILINOGEN NEGATIVE mg/dL (0.2-1.0)
[2017-06-28 21:51] LABS: URINE LEUK ESTERASE 3+ (NEGATIVE); URINE PROTEIN 1+ (NEGATIVE)
[2017-06-28 21:52] LABS: URINE BACTERIA MODERATE /hpf (NONE SEEN); URINE MUCUS RARE; URINE RBC 6 /hpf (0-3); URINE WBC 436 /hpf (3-5)
[2017-06-28] MEDS ORDERED: ACETAMINOPHEN 325 MG TABLET (FP) PO PRN (22:10)
[2017-06-28] MEDS ORDERED: CEFTRIAXONE 50 ML ONE (22:11)
--- NOTE | 2017-06-28 22:21 | HP ---
Admitting History and Physical - Admission Chief Complaint: shaking, unable to move History of Present Illness: 86 yo female, h/o Parkinsons disease, noted some pressure in bladder area. Is prone to UTI's. Today while patient was getting dressed in the late afternoon started getting chille sand shaking, unable to stop and could not move. When dtr arrived and saw her, she henriquez luli and patient taken to [facility]. Had tylenol in hospital after being found to have fever 102.4. Urine is returning back showing infection. She did have recent MRI's of her spine which did show cystic structure in neck and right liver had a lesion as well. 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 Cardiovascular: Yes: HTN, Hyperlipdemia Musculoskeletal: Yes: Chronic low back pain (spinal stenosis) Endocrine: Yes: Diabetes Mellitus - Past Surgical History Past Surgical History: Yes: Cataract Removal Additional Past Surgical History: eyelid surgery (blepharoplasty) - Smoking History Smoking history: Never smoked Have you smoked in the past 12 months: No Aproximately how many cigarettes per day: 0 - Alcohol/Substance Use Hx Alcohol Use: No History of Substance Use: reports: None - Social History ADL: Independent Other Social History: , 3 children Home Medications - Allergies Allergies/Adverse Reactions: Allergies Allergy/AdvReac Type Severity Reaction Status Date / Time No Known Allergies Allergy Verified 06/28/17 20:10 - Home Medications Home Medications: Ambulatory Orders Aspirin [Aspirin EC] 81 mg PO HS 01/20/17 Atorvastatin Ca [Lipitor] 10 mg PO HS 01/20/17 Carbidopa/Levodopa *Cr* 25/100 [Sinemet *Cr* 25/100 -] 1 combo PO BID 01/20/17 Carbidopa/Levodopa [Carbidopa-Levo 25-100 mg Odt] 1.5 mg PO QID 01/20/17 Cholecalciferol (Vitamin D3) [Vitamin D3 -] 1,000 unit PO DAILY 01/20/17 Duloxetine HCl [Cymbalta] 60 mg PO DAILY 01/20/17 Furosemide [Lasix] 20 mg PO DAILY 01/20/17 Gabapentin [Neurontin -] 100 mg PO DAILY 01/20/17 Metformin HCl 1,000 mg PO BID 01/20/17 Potassium Chloride [K-Dur -] 20 meq PO DAILY 01/20/17 Rotigotine [Neupro] 8 mg TD DAILY 01/20/17 Ubidecarenone/Vitamin E [Co Q-10 50 mg Softgel] 1 each PO DAILY 01/20/17 Vitamin B Complex [Ultra B-100 Complex] 1 each PO DAILY 01/20/17 Gabapentin [Neurontin -] 300 mg PO HS 06/28/17 Methenamine Hippurate [Hiprex [Nf] -] 1 gm PO DAILY 06/28/17 Olmesartan Medoxomil [Benicar (Nf)] 5 mg PO DAILY 06/28/17 Family Disease History - Family Disease History Family Disease History: Diabetes: Sister, Other: Son (thyroid disease) Review of Systems - Review of Systems Constitutional: reports: Fever, Weakness. denies: Loss of Appetite, Unintentional Wgt. Loss Eyes: reports: No Symptoms HENT: denies: Difficult Swallowing, Throat Pain Neck: reports: Pain on Movement Cardiovascular: denies: Chest Pain, Palpitations Respiratory: denies: Cough, SOB Gastrointestinal: denies: Abdominal Pain, Constipation, Diarrhea, Vomiting Neurological: reports: Dizziness. denies: Change in LOC Physical Examination Vital Signs: Vital Signs Temperature 99.5 F 06/28/17 22:07 Pulse Rate 95 H 06/28/17 22:07 Respiratory Rate 20 06/28/17 22:07 Blood Pressure 115/47 06/28/17 22:07 O2 Sat by Pulse Oximetry (%) 95 06/28/17 22:07 Constitutional: Yes: Well Nourished, No Distress, Calm Eyes: Yes: Conjunctiva Clear, EOM Intact, PERRL HENT: Yes: Atraumatic, Normocephalic Neck: Yes: Supple, Trachea Midline Cardiovascular: Yes: Regular Rate and Rhythm, S1, S2. No: Murmur Respiratory: Yes: Regular, CTA Bilaterally. No: Rales, Rhonchi, Wheezes Gastrointestinal: Yes: Normal Bowel Sounds, Soft, Abdomen, Obese. No: Distention, Tenderness Edema: Yes Edema: LLE: Trace, RLE: Trace Neurological: Yes: Tremors (b/l hands), Unsteady Gait Labs: CBC, BMP 06/28/17 20:30 06/28/17 20:30 Imaging - Results Chest X-ray: Image Reviewed (no acute disease) Problem List - Problems (1) Sepsis Assessment/Plan: -start abx (levaquin) -check US soft tissues neck and abdomen, as seen to have cystic structures on recent outside MRI's of spine (done at [facility]) Code(s): A41.9 - SEPSIS, UNSPECIFIED ORGANISM (2) UTI (urinary tract infection) Assessment/Plan: -to start abx Code(s): N39.0 - URINARY TRACT INFECTION, SITE NOT SPECIFIED (3) Diabetes Assessment/Plan: follow FS with infection -sliding scale insulin as needed, cotn Metformin Code(s): E11.9 - TYPE 2 DIABETES MELLITUS WITHOUT COMPLICATIONS (4) Parkinson disease Assessment/Plan: -cont Sinemet, Neupro, pramipexole Code(s): G20 - PARKINSON'S DISEASE
[2017-06-28 23:53] VITALS: BMI 39.9
[2017-06-29] MEDS: INSULIN SLIDING SCALE (NOVOLOG) 1 VIAL SQ SCH ×4 (06:44→21:12)
[2017-06-29] MEDS: metFORMIN HCL 500 MG TABLET (FP) PO SCH ×2 (06:46→17:01)
[2017-06-29 08:16] LABS: BASOPHIL 0.2 % (0-2.0); EOSINOPHIL 0.5 % (0-4.5); MCH 28.6 pg (25.7-33.7); MCHC 33.3 g/dl (32.0-36.0); MEAN CELL VOLUME 86.1 fl (80-96); MEAN PLT VOLUME 8.7 fl (7.5-11.1); NEUTROPHILS 79.1 % (42.8-82.8); PLATELET COUNT 147 K/MM3 (134-434); RDW 16.6 % (11.6-15.6); WHITE BLOOD COUNT 10.1 K/mm3 (4.0-10.0)
[2017-06-29 08:51] LABS: ALBUMIN 3.5 g/dl (3.4-5.0); ANION GAP 11 (8-16); BILIRUBIN,TOTAL 1.3 mg/dL (0.2-1.0); CALCIUM 8.8 mg/dL (8.5-10.1); CO2 27 mmol/L (21-32); CREATININE 0.8 mg/dL (0.55-1.02); GLUCOSE,RANDOM 111 mg/dL (74-106); SGOT/AST 10 U/L (15-37); SGPT/ALT 7 U/L (12-78); TOT PROT 6.4 g/dl (6.4-8.2)
[2017-06-29 08:58] LABS: ALK PHOS 66 U/L (45-117)
[2017-06-29] MEDS ORDERED: LEVOFLOXACIN 500 MG IVPB 100 ML IVPB SCH (10:00)
[2017-06-29] MEDS ORDERED: metFORMIN HCL 500 MG TABLET (FP) PO SCH (10:00)
[2017-06-29] MEDS ORDERED: PT OWN MED DRAWER 7, Y5N ONE (10:39)
[2017-06-29] MEDS: CARBIDOPA/LEVODOPA 25/100 TABLET (FP) PO SCH ×4 (10:46→21:12)
[2017-06-29] MEDS: VITAMIN B COMPLEX W/C COMBO TABLET (FP) PO SCH (10:46)
[2017-06-29] MEDS: CHOLECALCIFEROL (VITAMIN D3) 1,000 UNIT TABLET (FP) PO SCH (10:46)
[2017-06-29] MEDS: DULoxetine HCL 30 MG CAPSULE.DR (FP) PO SCH (10:47)
[2017-06-29] MEDS: HEPARIN NA (PORCINE) 5,000 UNITS/ML 1ML VIAL SQ SCH ×2 (10:47→21:12)
[2017-06-29] MEDS: GABAPENTIN 100 MG CAPSULE (FP) PO SCH (10:47)
[2017-06-29] MEDS: ROTIGOTINE TD SCH (10:47)
[2017-06-29] MEDS: PRAMIPEXOLE DIHYDROCHLORIDE 0.125 MG TABLET PO SCH (10:47)
--- NOTE | 2017-06-29 11:01 | EKG ---
Test Reason : Blood Pressure : / mmHG Vent. Rate : 100 BPM Atrial Rate : 100 BPM P-R Int : 134 ms QRS Dur : 078 ms QT Int : 332 ms P-R-T Axes : 024 -41 041 degrees QTc Int : 428 ms NORMAL SINUS RHYTHM LEFT AXIS DEVIATION LOW VOLTAGE QRS NONSPECIFIC ST ABNORMALITY ABNORMAL ECG WHEN COMPARED WITH ECG OF 20-JAN-2017 19:51, NO SIGNIFICANT CHANGE WAS FOUND Confirmed by JADYN BARRERA, ASHLEY ([id number]) on 06/29/2017 11:01:13 AM Referred By: Confirmed By:ASHLEY SALAMANCA MD
[2017-06-29] MEDS ORDERED: INSULIN (NOVOLOG) ASPART 100 UNITS/ML 10ML VIAL ONE (11:19)
--- NOTE | 2017-06-29 13:31 | PN ---
Progress Note, Physician Chief Complaint: Ms Alberts complains of shaking today and not feeling well. She denies chest pain, shortness of breath, nausea/vomiting. Complains of weakness and general malaise. - Current Medication List Current Medications: Active Medications Acetaminophen (Tylenol -) 650 mg PO Q4H PRN PRN Reason: FEVER OR PAIN Aspirin (Ecotrin -) 81 mg PO HS [facility] Atorvastatin Calcium (Lipitor -) 10 mg PO HS [facility] Carbidopa/Levodopa (Sinemet 25/100 -) 1 each PO QID [facility] Last Admin: 06/29/17 10:46 Dose: 1 each Cholecalciferol (Vitamin D3 -) 1,000 unit PO DAILY [facility] Last Admin: 06/29/17 10:46 Dose: 1,000 unit Duloxetine HCl (Cymbalta -) 60 mg PO DAILY [facility] Last Admin: 06/29/17 10:47 Dose: 60 mg Gabapentin (Neurontin -) 100 mg PO DAILY [facility] Last Admin: 06/29/17 10:47 Dose: 100 mg Heparin Sodium (Porcine) (Heparin -) 5,000 unit SQ BID [facility] Last Admin: 06/29/17 10:47 Dose: 5,000 unit Levofloxacin (Levaquin 500 Mg Premixed Ivpb -) 100 mls @ 100 mls/hr IVPB DAILY [facility] Last Admin: 06/29/17 10:45 Dose: 100 mls/hr Insulin Aspart (Novolog Vial Sliding Scale -) 1 vial SQ ACHS [facility] PRN Reason: Protocol Last Admin: 06/29/17 11:22 Dose: 4 units Metformin HCl (Glucophage -) 1,000 mg PO BID@0700,1630 [facility] Last Admin: 06/29/17 06:46 Dose: Not Given Multivitamins (Total B With C -) 1 each PO DAILY [facility] Last Admin: 06/29/17 10:46 Dose: 1 each Rotigotine (Neupro) Transdermal Patch 8 Mg/24 Hrs (Pt's Own) 8 mg TD DAILY [facility] Last Admin: 06/29/17 10:47 Dose: 8 mg Non-Formulary Medication (Ubidecarenone/Vitamin E [Co Q-10 50 Mg Softgel]) 1 each PO DAILY [facility] Pramipexole Dihydrochloride (Mirapex -) 0.125 mg PO DAILY [facility] Last Admin: 10/04/17 10:47 Dose: 0.125 mg - Objective Vital Signs: Vital Signs Temperature 36.8 C 06/29/17 07:18 Pulse Rate 92 H 06/29/17 07:18 Respiratory Rate 18 06/29/17 07:18 Blood Pressure 114/86 06/29/17 07:18 O2 Sat by Pulse Oximetry (%) 94 L 06/29/17 00:05 Constitutional: Yes: No Distress, Calm, Obese Cardiovascular: Yes: Regular Rate and Rhythm. No: Gallop, Murmur, Rub Respiratory: Yes: Regular, CTA Bilaterally. No: Rales, Rhonchi, Wheezes Gastrointestinal: Yes: Normal Bowel Sounds, Soft. No: Distention, Tenderness Extremities: Yes: WNL Edema: No Labs: CBC, BMP 06/29/17 06:00 06/29/17 06:45 INR, PTT INR 1.29 (0.82-1.09) H 06/28/17 20:30 Problem List - Problems (1) Sepsis Assessment/Plan: -gram negative in all sets -most likely secondary to pyelonephritis -ID consulted -may need broader spectrum antibiotics -hydration Code(s): A41.9 - SEPSIS, UNSPECIFIED ORGANISM (2) Gram-negative bacteremia Assessment/Plan: -ID consult -secondary to pyelonephritis -antibiotics per ID Code(s): R78.81 - BACTEREMIA (3) Pyelonephritis, acute Assessment/Plan: -cause of sepsis and bacteremia -on levaquin, however concerning that need broader spectrum since bacteremic -ID consulted, placed on zosyn Code(s): N10 - ACUTE PYELONEPHRITIS (4) Diabetes Assessment/Plan: -continue metformin -diabetic diet Code(s): E11.9 - TYPE 2 DIABETES MELLITUS WITHOUT COMPLICATIONS (5) Parkinson disease Assessment/Plan: -continue home regimen Code(s): G20 - PARKINSON'S DISEASE
--- NOTE | 2017-06-29 14:56 | PN ---
Progress Note (short form) - Note Progress Note: ID consult dictated imp/reccd 86 yo Female admitted with chills and shaking sudden onset yesterday and fever on arrival to ED of 102.[address] Valentino of UTIs in the past, she does not recall recent antibiotics for UTI UA here with pyuria PE notable for Right CVAT blood culture with GNR imp/reccd gram negative bacteremai right pyelonephritis/UTI remote history of nephrolithiasis start zosyn f/u cultures renal sonogram Problem List - Problems (1) Gram-negative bacteremia Code(s): R78.81 - BACTEREMIA (2) Pyelonephritis, acute Code(s): N10 - ACUTE PYELONEPHRITIS (3) UTI (urinary tract infection) Code(s): N39.0 - URINARY TRACT INFECTION, SITE NOT SPECIFIED Qualifiers: Hematuria presence: without hematuria
[2017-06-29] MEDS ORDERED: PIPERACILLIN/TAZOB 4.5 GM/100 ML PRE-DOCKED IVPB SCH (15:00)
[2017-06-29] MEDS ORDERED: PIPERACILLIN/TAZOB 4.5 GM 4.5 GM in SODIUM CHLORIDE 100 ML IVPB SCH ×2 (15:00→18:00)
[2017-06-29] MEDS: PIPERACILLIN/TAZOB 4.5 GM 4.5 GM in SODIUM CHLORIDE 100 ML IVPB SCH ×2 (17:36→17:37)
[2017-06-29] MEDS: SODIUM CHLORIDE 1,000 ML IV SCH (19:01)
--- NOTE | 2017-06-29 20:19 | CONS ---
DATE OF CONSULTATION: DATE OF DICTATION: 06/29/2017 REQUESTED BY: Petar Ochoa MD This is an 86-year-old woman who developed sudden onset of shaking and chills yesterday. Her daughter came over and called for an ambulance. When she arrived in the ER, she had a fever of 102.5. She has apparently a history of prior UTI though she does not recall being on antibiotics recently. She also does not recall any change in her urinary frequency or dysuria although she notes she is on a water pill. She had a UA that showed pyuria in the emergency room, and she received a dose of ceftriaxone and was started on Levaquin. I am asked to see her because she now has positive blood cultures. She has had chronic back pain. She had recent MRIs of her spine that showed a structure in her neck and a right liver lesion. Past medical history is notable for Parkinson's disease, hypertension, hyperlipidemia, chronic low back pain secondary to spinal stenosis. Surgical history is notable for cataract removal. SOCIAL HISTORY: She lives downstairs in a 2-family. Her daughter lives upstairs. She uses a walker. She is independent. She is and has 3 children. She is originally from [place]. There is no history of any cigarette or substance use. She has no known drug allergies. Her medications at home include aspirin, Lipitor, Sinemet, vitamin D, Cymbalta, Lasix, Neurontin, metformin, potassium, rotigotine, Coenzyme Q, B complex, Neurontin, methenamine, and Benicar. Family history is notable for diabetes and thyroid disease. REVIEW OF SYSTEMS: She denies any cough, any difficulty swallowing. She has no nausea, vomiting, diarrhea. She does note she has no chest pain. There is also no history of any travel. PHYSICAL EXAMINATION: Vital Signs: Current temperature is 98.6. She reports that she had chills when she was downstairs for ultrasound. T-max is 102.4. Pulse of 92. Respiratory rate is 20. Blood pressure is 114/62. HEENT: Normocephalic. Her eyes are anicteric. Neck: Supple. Lungs: Clear to auscultation. Heart: Regular rate and rhythm. Abdomen: Soft, nontender. She has right CVA tenderness. She has no suprapubic pain. Extremities: Without edema. White count is 10.1, hemoglobin is 10.8, platelets of 147, INR is 1.2, BUN 33, creatinine 0.8. Total bilirubin was 1.6, today is 1.3, and urinalysis has 436 white cells. Blood cultures, 4 of 4 bottles, are growing gram-negative bacilli. Urine culture is pending. She had an ultrasound of her abdomen done to follow up the liver lesion noted on MRI, which shows an enlarged spleen, no evidence of intrahepatic or extrahepatic ductal dilatation, and shows gallstones but no gallbladder wall thickening or pericholecystic fluid. In summary, this is an 86-year-old woman with gram-negative bacteremia, I suspect on the basis right-sided pyelonephritis, urinary tract infection. I would suggest we treat her with piperacillin and tazobactam at this time, follow up cultures. She does give a remote history of nephrolithiasis, so would obtain renal ultrasound. Further recommendations to follow based on clinical course. Luigi [id number]
[2017-06-29] MEDS: ASPIRIN COATED 81 MG TABLET.EC PO SCH (21:12)
[2017-06-29] MEDS: ATORVASTATIN CA 10 MG TABLET (FP) PO SCH (21:12)
[2017-06-30] MEDS: PIPERACILLIN/TAZOB 4.5 GM 4.5 GM in SODIUM CHLORIDE 100 ML IVPB SCH ×3 (02:35→18:04)
[2017-06-30] MEDS: INSULIN SLIDING SCALE (NOVOLOG) 1 VIAL SQ SCH ×4 (06:21→21:19)
[2017-06-30] MEDS: metFORMIN HCL 500 MG TABLET (FP) PO SCH ×2 (06:22→16:56)
[2017-06-30 08:14] LABS: BASOPHIL 0.1 % (0-2.0); EOSINOPHIL 0.8 % (0-4.5); MCH 28.3 pg (25.7-33.7); MCHC 32.8 g/dl (32.0-36.0); MEAN CELL VOLUME 86.4 fl (80-96); MEAN PLT VOLUME 8.8 fl (7.5-11.1); PLATELET COUNT 127 K/MM3 (134-434); RDW 16.9 % (11.6-15.6); WHITE BLOOD COUNT 8.5 K/mm3 (4.0-10.0)
[2017-06-30 08:42] LABS: ANION GAP 12 (8-16); CALCIUM 8.7 mg/dL (8.5-10.1); CO2 26 mmol/L (21-32); CREATININE 0.8 mg/dL (0.55-1.02); GLUCOSE,RANDOM 139 mg/dL (74-106); MAGNESIUM 2.1 mg/dL (1.8-2.4); PHOSPHOROUS 3.3 mg/dL (2.5-4.9)
[2017-06-30] MEDS ORDERED: PT OWN MED DRAWER 7, Y5N ONE ×2 (10:02→18:01)
[2017-06-30] MEDS: VITAMIN B COMPLEX W/C COMBO TABLET (FP) PO SCH (10:13)
[2017-06-30] MEDS: CHOLECALCIFEROL (VITAMIN D3) 1,000 UNIT TABLET (FP) PO SCH (10:13)
[2017-06-30] MEDS: DULoxetine HCL 30 MG CAPSULE.DR (FP) PO SCH (10:13)
[2017-06-30] MEDS: CARBIDOPA/LEVODOPA 25/100 TABLET (FP) PO SCH ×4 (10:13→21:19)
[2017-06-30] MEDS: PRAMIPEXOLE DIHYDROCHLORIDE 0.125 MG TABLET PO SCH (10:13)
[2017-06-30] MEDS: GABAPENTIN 100 MG CAPSULE (FP) PO SCH (10:13)
[2017-06-30] MEDS: HEPARIN NA (PORCINE) 5,000 UNITS/ML 1ML VIAL SQ SCH ×2 (10:13→21:20)
[2017-06-30] MEDS: SODIUM CHLORIDE 1,000 ML IV SCH (10:14)
[2017-06-30] MEDS: ROTIGOTINE TD SCH (10:14)
--- NOTE | 2017-06-30 15:01 | PN ---
Progress Note, Physician Chief Complaint: Ms Alberts says she is feeling better today but is still very weak. No cp, sob, n/v. - Current Medication List Current Medications: Active Medications Acetaminophen (Tylenol -) 650 mg PO Q4H PRN PRN Reason: FEVER OR PAIN Last Admin: 06/29/17 21:11 Dose: 650 mg Aspirin (Ecotrin -) 81 mg PO HS [facility] Last Admin: 06/29/17 21:12 Dose: 81 mg Atorvastatin Calcium (Lipitor -) 10 mg PO HS [facility] Last Admin: 06/29/17 21:12 Dose: 10 mg Carbidopa/Levodopa (Sinemet 25/100 -) 1 each PO QID [facility] Last Admin: 06/30/17 13:40 Dose: 1 each Cholecalciferol (Vitamin D3 -) 1,000 unit PO DAILY [facility] Last Admin: 06/30/17 10:13 Dose: 1,000 unit Duloxetine HCl (Cymbalta -) 60 mg PO DAILY [facility] Last Admin: 06/30/17 10:13 Dose: 60 mg Gabapentin (Neurontin -) 100 mg PO DAILY [facility] Last Admin: 06/30/17 10:13 Dose: 100 mg Heparin Sodium (Porcine) (Heparin -) 5,000 unit SQ BID [facility] Last Admin: 06/30/17 10:13 Dose: 5,000 unit Piperacillin Sod/Tazobactam (Sod 4.5 gm/ Sodium Chloride) 100 mls @ 200 mls/hr IVPB Q8H-IV [facility] Last Admin: 06/30/17 10:13 Dose: 200 mls/hr Sodium Chloride (Normal Saline -) 1,000 mls @ 60 mls/hr IV ASDIR [facility] Last Admin: 06/30/17 10:14 Dose: 60 mls/hr Insulin Aspart (Novolog Vial Sliding Scale -) 1 vial SQ ACHS [facility] PRN Reason: Protocol Last Admin: 06/30/17 11:49 Dose: Not Given Metformin HCl (Glucophage -) 1,000 mg PO BID@0700,1630 [facility] Last Admin: 06/30/17 06:22 Dose: 1,000 mg Multivitamins (Total B With C -) 1 each PO DAILY [facility] Last Admin: 06/30/17 10:13 Dose: 1 each Rotigotine (Neupro) Transdermal Patch 8 Mg/24 Hrs (Pt's Own) 8 mg TD DAILY [facility] Last Admin: 06/30/17 10:14 Dose: 8 mg Pramipexole Dihydrochloride (Mirapex -) 0.125 mg PO DAILY [facility] Last Admin: 06/30/17 10:13 Dose: 0.125 mg - Objective Vital Signs: Vital Signs Temperature 36.7 C 06/30/17 09:00 Pulse Rate 79 06/30/17 09:00 Respiratory Rate 20 06/30/17 09:00 Blood Pressure 110/51 06/30/17 09:00 O2 Sat by Pulse Oximetry (%) 95 06/29/17 20:22 Constitutional: Yes: No Distress, Calm, Obese Cardiovascular: Yes: Regular Rate and Rhythm. No: Gallop, Murmur, Rub Respiratory: Yes: Regular, CTA Bilaterally. No: Rales, Rhonchi, Wheezes Gastrointestinal: Yes: Normal Bowel Sounds, Soft. No: Distention, Tenderness Extremities: Yes: WNL Edema: No Neurological: Yes: Tremors Labs: CBC, BMP 06/30/17 06:45 06/30/17 06:45 INR, PTT INR 1.29 (0.82-1.09) H 06/28/17 20:30 Problem List - Problems (1) Sepsis Code(s): A41.9 - SEPSIS, UNSPECIFIED ORGANISM (2) Gram-negative bacteremia Code(s): R78.81 - BACTEREMIA (3) Pyelonephritis, acute Code(s): N10 - ACUTE PYELONEPHRITIS (4) Diabetes Code(s): E11.9 - TYPE 2 DIABETES MELLITUS WITHOUT COMPLICATIONS (5) Parkinson disease Code(s): G20 - PARKINSON'S DISEASE Assessment/Plan (1) Sepsis Assessment/Plan: -patient much improved today -continue zosyn per ID -follow up culture results Code(s): A41.9 - SEPSIS, UNSPECIFIED ORGANISM (2) Gram-negative bacteremia Assessment/Plan: -secondary to pyelonephritis -continue zosyn Code(s): R78.81 - BACTEREMIA (3) Pyelonephritis, acute Assessment/Plan: -cause of sepsis and bacteremia -continue zosyn Code(s): N10 - ACUTE PYELONEPHRITIS (4) Diabetes Assessment/Plan: -continue metformin -diabetic diet Code(s): E11.9 - TYPE 2 DIABETES MELLITUS WITHOUT COMPLICATIONS (5) Parkinson disease Assessment/Plan: -continue home regimen -PT consult Code(s): G20 - PARKINSON'S DISEASE
--- NOTE | 2017-06-30 15:29 | PN ---
Progress Note (short form) - Note Progress Note: doing well no chills today no fevers Vital Signs Period Temp Pulse Resp BP Sys/Chery Pulse Ox Last 24 Hr 97.3 F-99.6 F 67-86 17-20 99-110/48-62 95 cor-rrr lungs clear abd soft,nt no cvat ext no edema CBC, BMP 06/30/17 06:45 06/30/17 06:45 Microbiology 06/28/17 21:40 Urine - Urine Clean Catch Urine Culture - Preliminary Non Lactose Fermenting Gnb 06/28/17 20:30 Blood - Peripheral Venous Blood Culture - Preliminary Non Lactose Fermenting Gnb 06/28/17 20:30 Blood - Peripheral Venous Blood Culture - Preliminary Non Lactose Fermenting Gnb a/p gram negative bacteremia secondary to UTI/pyelonephritis continue zosyn f/u cultures no hydronephrosis on renal sonogram Problem List - Problems (1) Gram-negative bacteremia Code(s): R78.81 - BACTEREMIA (2) Pyelonephritis, acute Code(s): N10 - ACUTE PYELONEPHRITIS (3) UTI (urinary tract infection) Code(s): N39.0 - URINARY TRACT INFECTION, SITE NOT SPECIFIED Qualifiers: Hematuria presence: without hematuria
[2017-06-30] MEDS: ASPIRIN COATED 81 MG TABLET.EC PO SCH (21:19)
[2017-06-30] MEDS: ATORVASTATIN CA 10 MG TABLET (FP) PO SCH (21:19)
[2017-07-01] MEDS ORDERED: PT OWN MED DRAWER 7, Y5N ONE (01:09)
[2017-07-01] MEDS: PIPERACILLIN/TAZOB 4.5 GM 4.5 GM in SODIUM CHLORIDE 100 ML IVPB SCH ×2 (01:22→10:59)
[2017-07-01] MEDS: SODIUM CHLORIDE 1,000 ML IV SCH ×3 (01:59→23:57)
[2017-07-01] MEDS: INSULIN SLIDING SCALE (NOVOLOG) 1 VIAL SQ SCH ×4 (06:13→22:03)
[2017-07-01] MEDS: metFORMIN HCL 500 MG TABLET (FP) PO SCH ×2 (06:13→17:16)
[2017-07-01 07:55] LABS: BASOPHIL 0.3 % (0-2.0); MCH 28.1 pg (25.7-33.7); MCHC 32.6 g/dl (32.0-36.0); MEAN PLT VOLUME 8.9 fl (7.5-11.1); NEUTROPHILS 75.9 % (42.8-82.8); PLATELET COUNT 128 K/MM3 (134-434); RDW 16.3 % (11.6-15.6); WHITE BLOOD COUNT 5.5 K/mm3 (4.0-10.0)
[2017-07-01 08:32] LABS: ANION GAP 6 (8-16); CALCIUM 8.2 mg/dL (8.5-10.1); CO2 27 mmol/L (21-32); CREATININE 0.6 mg/dL (0.55-1.02); GLUCOSE,RANDOM 131 mg/dL (74-106); MAGNESIUM 1.9 mg/dL (1.8-2.4); PHOSPHOROUS 3.1 mg/dL (2.5-4.9)
[2017-07-01] MEDS: VITAMIN B COMPLEX W/C COMBO TABLET (FP) PO SCH (09:34)
[2017-07-01] MEDS: CARBIDOPA/LEVODOPA 25/100 TABLET (FP) PO SCH ×4 (09:34→21:10)
[2017-07-01] MEDS: CHOLECALCIFEROL (VITAMIN D3) 1,000 UNIT TABLET (FP) PO SCH (09:34)
[2017-07-01] MEDS: GABAPENTIN 100 MG CAPSULE (FP) PO SCH (09:35)
[2017-07-01] MEDS: DULoxetine HCL 30 MG CAPSULE.DR (FP) PO SCH (09:35)
[2017-07-01] MEDS: HEPARIN NA (PORCINE) 5,000 UNITS/ML 1ML VIAL SQ SCH ×2 (09:35→21:11)
[2017-07-01] MEDS: ROTIGOTINE TD SCH (09:37)
[2017-07-01] MEDS: PRAMIPEXOLE DIHYDROCHLORIDE 0.125 MG TABLET PO SCH (10:59)
--- NOTE | 2017-07-01 11:06 | PN ---
Progress Note, Physician Chief Complaint: Ms Alberts is feeling better. No cp, sob, n/v. Strength improved from admission but still not baseline - Current Medication List Current Medications: Active Medications Acetaminophen (Tylenol -) 650 mg PO Q4H PRN PRN Reason: FEVER OR PAIN Last Admin: 06/29/17 21:11 Dose: 650 mg Aspirin (Ecotrin -) 81 mg PO HS [facility] Last Admin: 06/30/17 21:19 Dose: 81 mg Atorvastatin Calcium (Lipitor -) 10 mg PO HS [facility] Last Admin: 06/30/17 21:19 Dose: 10 mg Carbidopa/Levodopa (Sinemet 25/100 -) 1 each PO QID [facility] Last Admin: 07/01/17 09:34 Dose: 1 each Cholecalciferol (Vitamin D3 -) 1,000 unit PO DAILY [facility] Last Admin: 07/01/17 09:34 Dose: 1,000 unit Duloxetine HCl (Cymbalta -) 60 mg PO DAILY [facility] Last Admin: 07/01/17 09:35 Dose: 60 mg Gabapentin (Neurontin -) 100 mg PO DAILY [facility] Last Admin: 07/01/17 09:35 Dose: 100 mg Heparin Sodium (Porcine) (Heparin -) 5,000 unit SQ BID [facility] Last Admin: 07/01/17 09:35 Dose: 5,000 unit Piperacillin Sod/Tazobactam (Sod 4.5 gm/ Sodium Chloride) 100 mls @ 200 mls/hr IVPB Q8H-IV [facility] Last Admin: 07/01/17 10:59 Dose: 200 mls/hr Sodium Chloride (Normal Saline -) 1,000 mls @ 60 mls/hr IV ASDIR [facility] Last Admin: 07/01/17 01:59 Dose: Not Given Insulin Aspart (Novolog Vial Sliding Scale -) 1 vial SQ ACHS [facility] PRN Reason: Protocol Last Admin: 07/01/17 06:13 Dose: Not Given Metformin HCl (Glucophage -) 1,000 mg PO BID@0700,1630 [facility] Last Admin: 07/01/17 06:13 Dose: 1,000 mg Multivitamins (Total B With C -) 1 each PO DAILY [facility] Last Admin: 07/01/17 09:34 Dose: 1 each Rotigotine (Neupro) Transdermal Patch 8 Mg/24 Hrs (Pt's Own) 8 mg TD DAILY [facility] Last Admin: 07/01/17 09:37 Dose: 8 mg Pramipexole Dihydrochloride (Mirapex -) 0.125 mg PO DAILY [facility] Last Admin: 07/01/17 10:59 Dose: 0.125 mg - Objective Vital Signs: Vital Signs Temperature 36.9 C 07/01/17 09:00 Pulse Rate 72 07/01/17 09:00 Respiratory Rate 20 07/01/17 09:00 Blood Pressure 99/51 07/01/17 09:00 O2 Sat by Pulse Oximetry (%) 95 06/29/17 20:22 Constitutional: Yes: No Distress, Calm, Obese Cardiovascular: Yes: Regular Rate and Rhythm. No: Gallop, Murmur, Rub Respiratory: Yes: Regular, CTA Bilaterally. No: Rales, Rhonchi, Wheezes Gastrointestinal: Yes: Normal Bowel Sounds, Soft. No: Distention, Tenderness Extremities: Yes: WNL Edema: No Labs: CBC, BMP 07/01/17 06:45 07/01/17 06:45 INR, PTT INR 1.29 (0.82-1.09) H 06/28/17 20:30 Problem List - Problems (1) Sepsis Code(s): A41.9 - SEPSIS, UNSPECIFIED ORGANISM (2) Gram-negative bacteremia Code(s): R78.81 - BACTEREMIA (3) Pyelonephritis, acute Code(s): N10 - ACUTE PYELONEPHRITIS (4) Diabetes Code(s): E11.9 - TYPE 2 DIABETES MELLITUS WITHOUT COMPLICATIONS (5) Parkinson disease Code(s): G20 - PARKINSON'S DISEASE Assessment/Plan (1) Sepsis Assessment/Plan: -resolved Code(s): A41.9 - SEPSIS, UNSPECIFIED ORGANISM (2) Gram-negative bacteremia Assessment/Plan: -secondary to pyelonephritis -cultures resulted -ID to evaluate de-escalation of antibiotics Code(s): R78.81 - BACTEREMIA (3) Pyelonephritis, acute Assessment/Plan: -cause of sepsis and bacteremia -continue zosyn currently -await ID recommendations for de-escalations Code(s): N10 - ACUTE PYELONEPHRITIS (4) Diabetes Assessment/Plan: -continue metformin -diabetic diet Code(s): E11.9 - TYPE 2 DIABETES MELLITUS WITHOUT COMPLICATIONS (5) Parkinson disease Assessment/Plan: -continue home regimen -PT consulted and following Code(s): G20 - PARKINSON'S DISEASE Dispo -continue treatment over the weekend -suspect will need SNF placement next week
--- NOTE | 2017-07-01 12:35 | PN ---
Progress Note (short form) - Note Progress Note: doing well ambulated with PT today Vital Signs Period Temp Pulse Resp BP Sys/Chery Pulse Ox Last 24 Hr 98.1 F-99 F 67-72 17-20 99-130/51-69 cor-rrr lungs clear abd soft,nt ext no edema CBC, BMP 07/01/17 06:45 07/01/17 06:45 Microbiology 06/28/17 21:40 Urine - Urine Clean Catch Urine Culture - Final Escherichia Coli 06/28/17 20:30 Blood - Peripheral Venous Blood Culture - Final Escherichia Coli 06/28/17 20:30 Blood - Peripheral Venous Blood Culture - Final Escherichia Coli a/p ecoli bacteremia secondary to UTI/pyelonephritis today is day 3/10 of antibiotics can switch to po levaquin 500 mg daily to complete 10 days total treatment no hydronephrosis on renal sonogram d/w Dr Ochoa will switch to cefazolin while in hospital with plans to complete treatment with po levaquin when discharged as outlined above please call back if needed Problem List - Problems (1) Gram-negative bacteremia Code(s): R78.81 - BACTEREMIA (2) Pyelonephritis, acute Code(s): N10 - ACUTE PYELONEPHRITIS (3) UTI (urinary tract infection) Code(s): N39.0 - URINARY TRACT INFECTION, SITE NOT SPECIFIED Qualifiers: Hematuria presence: without hematuria
[2017-07-01] MEDS: CEFAZOLIN 2 GM/D5W 50 ML IVPB SCH (17:17)
[2017-07-01] MEDS: ATORVASTATIN CA 10 MG TABLET (FP) PO SCH (21:10)
[2017-07-01] MEDS: ASPIRIN COATED 81 MG TABLET.EC PO SCH (21:10)
[2017-07-02] MEDS: CEFAZOLIN 2 GM/D5W 50 ML IVPB SCH ×3 (01:29→18:58)
[2017-07-02] MEDS ORDERED: PT OWN MED DRAWER 7, Y5N ONE (06:05)
[2017-07-02] MEDS: metFORMIN HCL 500 MG TABLET (FP) PO SCH ×2 (06:09→18:02)
[2017-07-02] MEDS: INSULIN SLIDING SCALE (NOVOLOG) 1 VIAL SQ SCH ×4 (06:16→21:36)
[2017-07-02 07:42] LABS: BASOPHIL 0.5 % (0-2.0); EOSINOPHIL 2.1 % (0-4.5); MCHC 32.3 g/dl (32.0-36.0); MEAN CELL VOLUME 86.9 fl (80-96); MEAN PLT VOLUME 9.4 fl (7.5-11.1); NEUTROPHILS 72.3 % (42.8-82.8); RDW 16.1 % (11.6-15.6); WHITE BLOOD COUNT 5.3 K/mm3 (4.0-10.0)
[2017-07-02 08:07] LABS: ANION GAP 11 (8-16); CO2 23 mmol/L (21-32); GLUCOSE,RANDOM 127 mg/dL (74-106)
[2017-07-02 08:09] LABS: CALCIUM 8.2 mg/dL (8.5-10.1); CREATININE 0.6 mg/dL (0.55-1.02); MAGNESIUM 1.6 mg/dL (1.8-2.4); PHOSPHOROUS 3.2 mg/dL (2.5-4.9)
[2017-07-02 09:03] LABS: PLATELET COUNT 122 K/MM3 (134-434); PLATELET ESTIMATE SLT DECREASED (NORMAL)
[2017-07-02] MEDS: CHOLECALCIFEROL (VITAMIN D3) 1,000 UNIT TABLET (FP) PO SCH (09:21)
[2017-07-02] MEDS: CARBIDOPA/LEVODOPA 25/100 TABLET (FP) PO SCH ×4 (09:21→21:36)
[2017-07-02] MEDS: VITAMIN B COMPLEX W/C COMBO TABLET (FP) PO SCH (09:21)
[2017-07-02] MEDS: GABAPENTIN 100 MG CAPSULE (FP) PO SCH (09:21)
[2017-07-02] MEDS: DULoxetine HCL 30 MG CAPSULE.DR (FP) PO SCH (09:21)
[2017-07-02] MEDS: HEPARIN NA (PORCINE) 5,000 UNITS/ML 1ML VIAL SQ SCH ×2 (09:22→21:36)
[2017-07-02] MEDS: ROTIGOTINE TD SCH (09:22)
[2017-07-02] MEDS: PRAMIPEXOLE DIHYDROCHLORIDE 0.125 MG TABLET PO SCH (09:22)
[2017-07-02] MEDS ORDERED: MAGNESIUM OXIDE 400 MG TABLET (FP) PO ONE (14:40)
--- NOTE | 2017-07-02 14:40 | PN ---
Progress Note (short form) - Note Progress Note: OOB to chair. No cp, sob Afebrile. Discussed with her son over the phone. Current Medications Acetaminophen (Tylenol -) 650 mg PO Q4H PRN PRN Reason: FEVER OR PAIN Last Admin: 06/29/17 21:11 Dose: 650 mg Aspirin (Ecotrin -) 81 mg PO HS [facility] Last Admin: 07/01/17 21:10 Dose: 81 mg Atorvastatin Calcium (Lipitor -) 10 mg PO HS [facility] Last Admin: 07/01/17 21:10 Dose: 10 mg Carbidopa/Levodopa (Sinemet 25/100 -) 1 each PO QID [facility] Last Admin: 07/02/17 13:44 Dose: 1 each Cholecalciferol (Vitamin D3 -) 1,000 unit PO DAILY [facility] Last Admin: 07/02/17 09:21 Dose: 1,000 unit Duloxetine HCl (Cymbalta -) 60 mg PO DAILY [facility] Last Admin: 07/02/17 09:21 Dose: 60 mg Gabapentin (Neurontin -) 100 mg PO DAILY [facility] Last Admin: 07/02/17 09:21 Dose: 100 mg Heparin Sodium (Porcine) (Heparin -) 5,000 unit SQ BID [facility] Last Admin: 07/02/17 09:22 Dose: 5,000 unit Sodium Chloride (Normal Saline -) 1,000 mls @ 60 mls/hr IV ASDIR [facility] Last Admin: 07/01/17 23:57 Dose: 60 mls/hr Cefazolin Sodium/Dextrose (Ancef 2 Gm Premixed Ivpb -) 50 mls @ 200 mls/hr IVPB Q8H-IV [facility] Last Admin: 07/02/17 09:21 Dose: 200 mls/hr Insulin Aspart (Novolog Vial Sliding Scale -) 1 vial SQ ACHS [facility] PRN Reason: Protocol Last Admin: 07/02/17 12:10 Dose: 2 units Metformin HCl (Glucophage -) 1,000 mg PO BID@0700,1630 [facility] Last Admin: 07/02/17 06:09 Dose: 1,000 mg Multivitamins (Total B With C -) 1 each PO DAILY [facility] Last Admin: 07/02/17 09:21 Dose: 1 each Rotigotine (Neupro) Transdermal Patch 8 Mg/24 Hrs (Pt's Own) 8 mg TD DAILY [facility] Last Admin: 07/02/17 09:22 Dose: 8 mg Pramipexole Dihydrochloride (Mirapex -) 0.125 mg PO DAILY [facility] Last Admin: 07/02/17 09:22 Dose: 0.125 mg - Objective Vital Signs: Vital Signs Period Temp Pulse Resp BP Sys/Chery Pulse Ox Last 24 Hr 97.4 F-98.2 F 66-81 18-20 116-136/44-83 Constitutional: Yes: No Distress, Calm, Obese Cardiovascular: Yes: Regular Rate and Rhythm. No: Gallop, Murmur, Rub Respiratory: Yes: Regular, CTA Bilaterally. No: Rales, Rhonchi, Wheezes Gastrointestinal: Yes: Normal Bowel Sounds, Soft. No: Distention, Tenderness Extremities: Yes: WNL Edema: No Labs: CBC, BMP 07/02/17 07:25 07/02/17 07:25 Problem List - Problems (1) Sepsis Code(s): A41.9 - SEPSIS, UNSPECIFIED ORGANISM (2) Gram-negative bacteremia Code(s): R78.81 - BACTEREMIA (3) Pyelonephritis, acute Code(s): N10 - ACUTE PYELONEPHRITIS (4) Diabetes Code(s): E11.9 - TYPE 2 DIABETES MELLITUS WITHOUT COMPLICATIONS (5) Parkinson disease Code(s): G20 - PARKINSON'S DISEASE Assessment/Plan (1) Sepsis Assessment/Plan: -resolved Code(s): A41.9 - SEPSIS, UNSPECIFIED ORGANISM (2) Gram-negative bacteremia Assessment/Plan: -secondary to pyelonephritis -cultures resulted -ID on the case. - Continue abx. Code(s): R78.81 - BACTEREMIA (3) Pyelonephritis, acute Assessment/Plan: -cause of sepsis and bacteremia -continue cefazolin -ID follow up appreciated. Code(s): N10 - ACUTE PYELONEPHRITIS (4) Diabetes Assessment/Plan: -continue metformin -diabetic diet Code(s): E11.9 - TYPE 2 DIABETES MELLITUS WITHOUT COMPLICATIONS (5) Parkinson disease Assessment/Plan: -continue home regimen -PT consulted and following Code(s): G20 - PARKINSON'S DISEASE Dispo -continue treatment over the weekend -suspect will need SNF placement next week
[2017-07-02] MEDS: SODIUM CHLORIDE 1,000 ML IV SCH (18:01)
[2017-07-02] MEDS: ASPIRIN COATED 81 MG TABLET.EC PO SCH (21:36)
[2017-07-02] MEDS: ATORVASTATIN CA 10 MG TABLET (FP) PO SCH (21:36)
[2017-07-03] MEDS: CEFAZOLIN 2 GM/D5W 50 ML IVPB SCH ×3 (01:15→17:03)
[2017-07-03] MEDS: metFORMIN HCL 500 MG TABLET (FP) PO SCH ×2 (06:16→17:03)
[2017-07-03] MEDS: INSULIN SLIDING SCALE (NOVOLOG) 1 VIAL SQ SCH ×4 (06:23→21:48)
[2017-07-03 08:06] LABS: BASOPHIL 0.9 % (0-2.0); EOSINOPHIL 2.6 % (0-4.5); MCH 28.4 pg (25.7-33.7); MCHC 32.9 g/dl (32.0-36.0); MEAN CELL VOLUME 86.4 fl (80-96); MEAN PLT VOLUME 9.4 fl (7.5-11.1); NEUTROPHILS 72.1 % (42.8-82.8); RDW 16.5 % (11.6-15.6); WHITE BLOOD COUNT 6.4 K/mm3 (4.0-10.0)
[2017-07-03 08:29] LABS: ANION GAP 9 (8-16); CALCIUM 8.7 mg/dL (8.5-10.1); CO2 24 mmol/L (21-32); CREATININE 0.6 mg/dL (0.55-1.02); GLUCOSE,RANDOM 120 mg/dL (74-106)
[2017-07-03 08:31] LABS: ALK PHOS 58 U/L (45-117); BILIRUBIN,TOTAL 0.6 mg/dL (0.2-1.0); SGOT/AST 34 U/L (15-37); SGPT/ALT 18 U/L (12-78); TOT PROT 6.1 g/dl (6.4-8.2)
[2017-07-03] MEDS: HEPARIN NA (PORCINE) 5,000 UNITS/ML 1ML VIAL SQ SCH ×2 (09:36→21:48)
[2017-07-03] MEDS: PRAMIPEXOLE DIHYDROCHLORIDE 0.125 MG TABLET PO SCH (09:36)
[2017-07-03] MEDS: VITAMIN B COMPLEX W/C COMBO TABLET (FP) PO SCH (09:37)
[2017-07-03] MEDS: CHOLECALCIFEROL (VITAMIN D3) 1,000 UNIT TABLET (FP) PO SCH (09:37)
[2017-07-03] MEDS: CARBIDOPA/LEVODOPA 25/100 TABLET (FP) PO SCH ×4 (09:37→21:48)
[2017-07-03] MEDS: DULoxetine HCL 30 MG CAPSULE.DR (FP) PO SCH (09:37)
[2017-07-03] MEDS: GABAPENTIN 100 MG CAPSULE (FP) PO SCH (09:37)
[2017-07-03] MEDS: ROTIGOTINE TD SCH (09:38)
[2017-07-03 10:01] LABS: PLATELET COUNT 136 K/MM3 (134-434); PLATELET ESTIMATE ADEQUATE (NORMAL)
[2017-07-03] MEDS ORDERED: PT OWN MED DRAWER 7, Y5N ONE (17:00)
--- NOTE | 2017-07-03 17:36 | PN ---
Progress Note (short form) - Note Progress Note: No cp, sob Afebrile. Discussed with her son over the phone. Current Medications Acetaminophen (Tylenol -) 650 mg PO Q4H PRN PRN Reason: FEVER OR PAIN Last Admin: 06/29/17 21:11 Dose: 650 mg Aspirin (Ecotrin -) 81 mg PO HS [facility] Last Admin: 07/01/17 21:10 Dose: 81 mg Atorvastatin Calcium (Lipitor -) 10 mg PO HS [facility] Last Admin: 07/01/17 21:10 Dose: 10 mg Carbidopa/Levodopa (Sinemet 25/100 -) 1 each PO QID [facility] Last Admin: 07/02/17 13:44 Dose: 1 each Cholecalciferol (Vitamin D3 -) 1,000 unit PO DAILY [facility] Last Admin: 07/02/17 09:21 Dose: 1,000 unit Duloxetine HCl (Cymbalta -) 60 mg PO DAILY [facility] Last Admin: 07/02/17 09:21 Dose: 60 mg Gabapentin (Neurontin -) 100 mg PO DAILY [facility] Last Admin: 07/02/17 09:21 Dose: 100 mg Heparin Sodium (Porcine) (Heparin -) 5,000 unit SQ BID [facility] Last Admin: 07/02/17 09:22 Dose: 5,000 unit Sodium Chloride (Normal Saline -) 1,000 mls @ 60 mls/hr IV ASDIR [facility] Last Admin: 07/01/17 23:57 Dose: 60 mls/hr Cefazolin Sodium/Dextrose (Ancef 2 Gm Premixed Ivpb -) 50 mls @ 200 mls/hr IVPB Q8H-IV [facility] Last Admin: 07/02/17 09:21 Dose: 200 mls/hr Insulin Aspart (Novolog Vial Sliding Scale -) 1 vial SQ ACHS [facility] PRN Reason: Protocol Last Admin: 07/02/17 12:10 Dose: 2 units Metformin HCl (Glucophage -) 1,000 mg PO BID@0700,1630 [facility] Last Admin: 07/02/17 06:09 Dose: 1,000 mg Multivitamins (Total B With C -) 1 each PO DAILY [facility] Last Admin: 07/02/17 09:21 Dose: 1 each Rotigotine (Neupro) Transdermal Patch 8 Mg/24 Hrs (Pt's Own) 8 mg TD DAILY [facility] Last Admin: 07/02/17 09:22 Dose: 8 mg Pramipexole Dihydrochloride (Mirapex -) 0.125 mg PO DAILY [facility] Last Admin: 07/02/17 09:22 Dose: 0.125 mg - Objective Vital Signs: Vital Signs Period Temp Pulse Resp BP Sys/Chery Pulse Ox Last 24 Hr 98.0 F-98.8 F 64-96 18-22 124-137/71-75 98-98 Constitutional: Yes: No Distress, Calm, Obese Cardiovascular: Yes: Regular Rate and Rhythm. No: Gallop, Murmur, Rub Respiratory: Yes: Regular, CTA Bilaterally. No: Rales, Rhonchi, Wheezes Gastrointestinal: Yes: Normal Bowel Sounds, Soft. No: Distention, Tenderness Extremities: Yes: WNL Edema: No Labs: CBC, BMP 07/03/17 07:30 07/03/17 07:30 Problem List - Problems (1) Sepsis Code(s): A41.9 - SEPSIS, UNSPECIFIED ORGANISM (2) Gram-negative bacteremia Code(s): R78.81 - BACTEREMIA (3) Pyelonephritis, acute Code(s): N10 - ACUTE PYELONEPHRITIS (4) Diabetes Code(s): E11.9 - TYPE 2 DIABETES MELLITUS WITHOUT COMPLICATIONS (5) Parkinson disease Code(s): G20 - PARKINSON'S DISEASE Assessment/Plan (1) Sepsis Assessment/Plan: -resolved Code(s): A41.9 - SEPSIS, UNSPECIFIED ORGANISM (2) Gram-negative bacteremia Assessment/Plan: -secondary to pyelonephritis -cultures resulted -ID on the case. - Continue abx. Code(s): R78.81 - BACTEREMIA (3) Pyelonephritis, acute Assessment/Plan: -cause of sepsis and bacteremia -continue cefazolin. 5/10 day To switch to PO Levaquin upon discharge for a total of 10 days of treatment. -ID follow up appreciated. Code(s): N10 - ACUTE PYELONEPHRITIS (4) Diabetes Assessment/Plan: -continue metformin -diabetic diet Code(s): E11.9 - TYPE 2 DIABETES MELLITUS WITHOUT COMPLICATIONS (5) Parkinson disease Assessment/Plan: -continue home regimen -PT consulted and following Code(s): G20 - PARKINSON'S DISEASE Dispo -continue treatment over the weekend -SNF placement if qualified. -To finish total of 10 days of abx. Levaquin upon discharge. -
[2017-07-03] MEDS ORDERED: INSULIN (NOVOLOG) ASPART 100 UNITS/ML 10ML VIAL ONE (21:38)
[2017-07-03] MEDS: ASPIRIN COATED 81 MG TABLET.EC PO SCH (21:48)
[2017-07-03] MEDS: ATORVASTATIN CA 10 MG TABLET (FP) PO SCH (21:48)
[2017-07-04] MEDS: CEFAZOLIN 2 GM/D5W 50 ML IVPB SCH ×3 (01:28→18:03)
[2017-07-04] MEDS: INSULIN SLIDING SCALE (NOVOLOG) 1 VIAL SQ SCH ×4 (06:14→21:23)
[2017-07-04] MEDS: metFORMIN HCL 500 MG TABLET (FP) PO SCH ×2 (06:14→18:08)
[2017-07-04] MEDS ORDERED: INSULIN (NOVOLOG) ASPART 100 UNITS/ML 10ML VIAL ONE ×2 (06:46→21:03)
[2017-07-04 07:00] LABS: MCH 28.6 pg (25.7-33.7); MCHC 33.5 g/dl (32.0-36.0); MEAN CELL VOLUME 85.6 fl (80-96); MEAN PLT VOLUME 9.1 fl (7.5-11.1); PLATELET COUNT 150 K/MM3 (134-434); RDW 16.3 % (11.6-15.6); WHITE BLOOD COUNT 5.4 K/mm3 (4.0-10.0)
[2017-07-04 07:30] LABS: ALBUMIN 2.9 g/dl (3.4-5.0); ALK PHOS 58 U/L (45-117); ANION GAP 8 (8-16); BILIRUBIN,TOTAL 0.8 mg/dL (0.2-1.0); CALCIUM 8.4 mg/dL (8.5-10.1); CO2 25 mmol/L (21-32); CREATININE 0.5 mg/dL (0.55-1.02); GLUCOSE,RANDOM 133 mg/dL (74-106); SGOT/AST 34 U/L (15-37); SGPT/ALT 11 U/L (12-78)
[2017-07-04 08:54] LABS: METAMYELOCYTE 2 % (0-2); MYELOCYTE 1 % (0-2); PLATELET ESTIMATE ADEQUATE (NORMAL); TOTAL CELLS COUNTED 100
[2017-07-04] MEDS: GABAPENTIN 100 MG CAPSULE (FP) PO SCH (10:39)
[2017-07-04] MEDS: DULoxetine HCL 30 MG CAPSULE.DR (FP) PO SCH (10:39)
[2017-07-04] MEDS: CHOLECALCIFEROL (VITAMIN D3) 1,000 UNIT TABLET (FP) PO SCH (10:40)
[2017-07-04] MEDS: PRAMIPEXOLE DIHYDROCHLORIDE 0.125 MG TABLET PO SCH (10:40)
[2017-07-04] MEDS: CARBIDOPA/LEVODOPA 25/100 TABLET (FP) PO SCH ×4 (10:40→21:22)
[2017-07-04] MEDS: VITAMIN B COMPLEX W/C COMBO TABLET (FP) PO SCH (10:40)
[2017-07-04] MEDS: HEPARIN NA (PORCINE) 5,000 UNITS/ML 1ML VIAL SQ SCH ×2 (10:41→21:22)
[2017-07-04] MEDS: ROTIGOTINE TD SCH (10:41)
--- NOTE | 2017-07-04 13:32 | DS ---
Physical Exam: SUBJECTIVE: Patient seen and examined at bedside. Daughter at bedside during exam and participated in d/c planning. OBJECTIVE: Vital Signs Period Temp Pulse Resp BP Sys/Chery Pulse Ox Last 24 Hr 98.5 F-98.9 F 63-93 18-22 123-145/50-72 98 PHYSICAL EXAM GENERAL: The patient is awake, alert, and fully oriented, in no acute distress. HEAD: Normal with no signs of trauma. EYES: PERRL, extraocular movements intact, sclera anicteric, conjunctiva clear. ENT: Ears normal, nares patent, oropharynx clear without exudates, moist mucous membranes. NECK: Trachea midline, full range of motion, supple. LUNGS: Breath sounds equal, clear to auscultation bilaterally, no wheezes, no crackles, no accessory muscle use. HEART: Regular rate and rhythm, S1, S2 without murmur, rub or gallop. ABDOMEN: Obese abdomen soft, nontender, nondistended, normoactive bowel sounds, no guarding, no rebound, no hepatosplenomegaly, no masses. EXTREMITIES: 2+ pulses, warm, well-perfused, no edema. NEUROLOGICAL: Cranial nerves II through XII grossly intact. Normal speech, gait steady with walker. Ambulated ~40ft with PT. PSYCH: Normal mood, normal affect. SKIN: Warm, dry, normal turgor, no rashes or lesions noted. LABS Laboratory Results - last 24 hr 07/03/17 07/03/17 07/04/17 16:40 21:47 06:13 WBC RBC Hgb Hct MCV MCH MCHC RDW Plt Count MPV Total Counted Neutrophils % Neutrophils % (Manual) Lymphocytes % Lymphocytes % (Manual) Monocytes % (Manual) Eosinophils % (Manual) Myelocytes % (Man) Platelet Estimate Sodium Potassium Chloride Carbon Dioxide Anion Gap BUN Creatinine Creat Clearance w eGFR POC Glucometer 205 139 146 Random Glucose Calcium Total Bilirubin AST ALT Alkaline Phosphatase Total Protein Albumin 07/04/17 07/04/17 07/04/17 06:20 06:20 12:29 WBC 5.4 RBC 3.25 L Hgb 9.3 L Hct 27.8 L MCV 85.6 MCH 28.6 MCHC 33.5 RDW 16.3 H Plt Count 150 MPV 9.1 Total Counted 100 Neutrophils % No Result Required. Neutrophils % (Manual) 75 Lymphocytes % No Result Required. Lymphocytes % (Manual) 11 Monocytes % (Manual) 6 Eosinophils % (Manual) 5 H Myelocytes % (Man) 1 Platelet Estimate Adequate Sodium 141 Potassium 4.1 Chloride 108 H Carbon Dioxide 25 Anion Gap 8 BUN 10 Creatinine 0.5 L Creat Clearance w eGFR > 60 POC Glucometer 126 Random Glucose 133 H Calcium 8.4 L Total Bilirubin 0.8 D AST 34 ALT 11 L D Alkaline Phosphatase 58 Total Protein 6.0 L Albumin 2.9 L HOSPITAL COURSE: Date of Admission:06/28/17 Date of Discharge: 07/04/17 Minutes to complete discharge: 45 Discharge Summary Reason For Visit: URINARY TRACT INFECTION Current Active Problems Generalized weakness (Acute) Gram-negative bacteremia (Acute) Pyelonephritis, acute (Acute) Sepsis (Acute) UTI (urinary tract infection) (Acute) Hospital Course: 86 yo female, h/o Parkinsons disease, noted some pressure in bladder area. Is prone to UTI's. On date of admission, while patient was getting dressed in the late afternoon started getting chills and shaking, unable to stop and could not move. When daughter arrived and saw her, she called ambulance and patient taken to hospital. Had tylenol in hospital after being found to have fever 102.4. Urinalysis showed infection. She did have recent MRI's of her spine which did show cystic structure in neck and right liver had a lesion as well. Urine and blood cx with E. coli (+). SIRS(+) on presentation which was resolved with IVF in ER. Patient empirically treated with Zosyn and switched to Ancef when c&s returned. Symptoms resolved. Will continue with PO levaquin 500mg orally for the next 7 days to complete treatment. Patient has difficulty with ADL's and requires STR to improve ambulation. Will need VNS after STR. Condition: Improved - Instructions Diet, Activity, Other Instructions: Eat a well balanced diabetic diet. Resume all home medications. Take levofloxacin 500mg orally for the next 7 days to complete treatment of your urinary tract infection. Keep hydrated. Return to ER for any burning on urination, weakness, dizziness, fevers, chills or any other concerns. Referrals: Seferino Valentino MD [Primary Care Provider] - [facility]position[facility] - Home Medications Comprehensive Discharge Medication List: Ambulatory Orders Aspirin [Aspirin EC] 81 mg PO HS 01/20/17 Atorvastatin Ca [Lipitor] 10 mg PO HS 01/20/17 Carbidopa/Levodopa *Cr* 25/100 [Sinemet *Cr* 25/100 -] 1 combo PO HS 01/20/17 Carbidopa/Levodopa [Carbidopa-Levo 25-100 mg Odt] 25 mg PO QID 01/20/17 Cholecalciferol (Vitamin D3) [Vitamin D -] 1,000 unit PO DAILY 01/20/17 Duloxetine HCl [Cymbalta] 60 mg PO DAILY 01/20/17 Furosemide [Lasix] 20 mg PO DAILY 01/20/17 Gabapentin [Neurontin -] 100 mg PO DAILY 01/20/17 Metformin HCl 1,000 mg PO BID 01/20/17 Potassium Chloride [K-Dur -] 20 meq PO DAILY 01/20/17 Rotigotine [Neupro] 8 mg TD DAILY 01/20/17 Ubidecarenone/Vitamin E [Co Q-10 50 mg Softgel] 1 each PO DAILY 01/20/17 Vitamin B Complex [Ultra B-100 Complex] 1 each PO DAILY 01/20/17 Gabapentin [Neurontin -] 300 mg PO HS 06/28/17 Methenamine Hippurate [Hiprex [Nf] -] 1 gm PO DAILY 06/28/17 Olmesartan Medoxomil [Benicar -] 5 mg PO DAILY 06/28/17 Levofloxacin [Levaquin -] 500 mg PO DAILY #7 tablet 07/04/17 Pramipexole Dihydrochloride [Mirapex -] 0.125 mg PO DAILY tablet 07/04/17 This patient is new to me today: Yes Date on this admission: 07/04/17 Emergency Visit: Yes ED Registration Date: 06/28/17 Care time: The patient presented to the Emergency Department on the above date and was hospitalized for further evaluation of their emergent condition. Critical Care patient: No - Discharge Referral Referred to [facility] No
[2017-07-04] MEDS ORDERED: RANITIDINE HCL 150 MG TABLET (FP) PO ONE (15:42)
[2017-07-04] MEDS ORDERED: diphenhydrAMINE HCL 25 MG CAPSULE (FP) PO ONE (15:42)
[2017-07-04] MEDS ORDERED: predniSONE 20 MG TABLET (UD) PO ONE (17:09)
--- NOTE | 2017-07-04 17:14 | HOSP ---
Subjective - Review of Symptoms Events since last encounter: While waiting for transportation to [facility], pt developed minor swelling to upper lip. Physical Examination Vital Signs: Vital Signs Temperature 98.3 F 07/04/17 14:45 Pulse Rate 72 07/04/17 14:45 Respiratory Rate 18 07/04/17 14:45 Blood Pressure 143/70 07/04/17 14:45 O2 Sat by Pulse Oximetry (%) 98 07/04/17 09:00 Findings/Remarks: Medicated with Benadryl and Zantac. Swelling remained stable after medications. (-) drooling. (-) stridor. (-) sublingual edema. (-) tongue swelling. uvula midline and normal appearing. Labs: CBC, BMP 07/04/17 06:20 07/04/17 06:20 Hospitalist Encounter Assessment: allergic rxn to unknown substance. Will hold transfer to [facility] until AM. patient and daughter agree with plan.
[2017-07-04] MEDS: ASPIRIN COATED 81 MG TABLET.EC PO SCH (21:22)
[2017-07-04] MEDS: ATORVASTATIN CA 10 MG TABLET (FP) PO SCH (21:22)
[2017-07-04] MEDS ORDERED: LEVOFLOXACIN 500 MG TABLET (FP) PO SCH (22:00)
[2017-07-05] MEDS: INSULIN SLIDING SCALE (NOVOLOG) 1 VIAL SQ SCH ×3 (06:27→16:02)
[2017-07-05] MEDS: metFORMIN HCL 500 MG TABLET (FP) PO SCH ×2 (06:28→16:13)
[2017-07-05] MEDS ORDERED: INSULIN (NOVOLOG) ASPART 100 UNITS/ML 10ML VIAL ONE ×3 (06:31→15:47)
[2017-07-05] MEDS ORDERED: PT OWN MED DRAWER 7, Y5N ONE (06:32)
[2017-07-05] MEDS: DULoxetine HCL 30 MG CAPSULE.DR (FP) PO SCH (09:51)
[2017-07-05] MEDS: PRAMIPEXOLE DIHYDROCHLORIDE 0.125 MG TABLET PO SCH (09:52)
[2017-07-05] MEDS: HEPARIN NA (PORCINE) 5,000 UNITS/ML 1ML VIAL SQ SCH (09:52)
[2017-07-05] MEDS: CHOLECALCIFEROL (VITAMIN D3) 1,000 UNIT TABLET (FP) PO SCH (09:52)
[2017-07-05] MEDS: VITAMIN B COMPLEX W/C COMBO TABLET (FP) PO SCH (09:52)
[2017-07-05] MEDS: GABAPENTIN 100 MG CAPSULE (FP) PO SCH (09:52)
[2017-07-05] MEDS: CARBIDOPA/LEVODOPA 25/100 TABLET (FP) PO SCH ×2 (09:52→14:57)
[2017-07-05] MEDS: ROTIGOTINE TD SCH (09:52)
--- NOTE | 2017-07-05 12:46 | DS ---
Physical Examination Vital Signs: Vital Signs Temperature 36.8 C 07/05/17 05:59 Pulse Rate 65 07/05/17 05:59 Respiratory Rate 18 07/05/17 05:59 Blood Pressure 136/67 07/05/17 05:59 O2 Sat by Pulse Oximetry (%) 98 07/04/17 21:00 Constitutional: Yes: Well Nourished, No Distress, Calm Cardiovascular: Yes: Regular Rate and Rhythm. No: Gallop, Murmur Respiratory: Yes: Regular, CTA Bilaterally. No: Rales, Rhonchi, Wheezes Gastrointestinal: Yes: Normal Bowel Sounds, Soft. No: Distention, Tenderness Extremities: Yes: WNL Edema: No Labs: CBC, BMP 07/04/17 06:20 07/04/17 06:20 Discharge Summary Reason For Visit: URINARY TRACT INFECTION Current Active Problems Generalized weakness (Acute) Gram-negative bacteremia (Acute) Pyelonephritis, acute (Acute) Sepsis (Acute) UTI (urinary tract infection) (Acute) Hospital Course: Ms Alberts is a pleasant 86 year old female who comes in with weakness and was found to have sepsis secondary to pyelonephritis. She was admitted and seen by ID. She was originally started on zosyn. Cultures came back pansensitive, and it was changed to cefazolin. She improved significantly and finished the course of antibiotics. She is currently stable for discharge to SNF for rehab. 32 minutes spent in preparation of this discharge Condition: Improved - Instructions Diet, Activity, Other Instructions: Eat a well balanced diabetic diet. Resume all home medications. Take levofloxacin 500mg orally for the next 7 days to complete treatment of your urinary tract infection. Keep hydrated. Return to ER for any burning on urination, weakness, dizziness, fevers, chills or any other concerns. Referrals: Seferino Valentino MD [Primary Care Provider] - Disposition: [facility] - Home Medications Comprehensive Discharge Medication List: Ambulatory Orders Aspirin [Aspirin EC] 81 mg PO HS 01/20/17 Atorvastatin Ca [Lipitor] 10 mg PO HS 01/20/17 Carbidopa/Levodopa *Cr* 25/100 [Sinemet *Cr* 25/100 -] 1 combo PO HS 01/20/17 Carbidopa/Levodopa [Carbidopa-Levo 25-100 mg Odt] 25 mg PO QID 01/20/17 Cholecalciferol (Vitamin D3) [Vitamin D -] 1,000 unit PO DAILY 01/20/17 Duloxetine HCl [Cymbalta] 60 mg PO DAILY 01/20/17 Furosemide [Lasix] 20 mg PO DAILY 01/20/17 Gabapentin [Neurontin -] 100 mg PO DAILY 01/20/17 Metformin HCl 1,000 mg PO BID 01/20/17 Potassium Chloride [K-Dur -] 20 meq PO DAILY 01/20/17 Rotigotine [Neupro] 8 mg TD DAILY 01/20/17 Ubidecarenone/Vitamin E [Co Q-10 50 mg Softgel] 1 each PO DAILY 01/20/17 Vitamin B Complex [Ultra B-100 Complex] 1 each PO DAILY 01/20/17 Gabapentin [Neurontin -] 300 mg PO HS 06/28/17 Methenamine Hippurate [Hiprex [Nf] -] 1 gm PO DAILY 06/28/17 Olmesartan Medoxomil [Benicar -] 5 mg PO DAILY 06/28/17 Levofloxacin [Levaquin -] 500 mg PO DAILY #7 tablet 07/04/17 Pramipexole Dihydrochloride [Mirapex -] 0.125 mg PO DAILY tablet 07/04/17
[2017-07-05 13:58] VITALS: BP 143/72; PULSE 73; TEMP 98.1
== END 2017-07-05 16:35 | DRG 872 ==
LOC: JER 19:40 → JERBED 21:11 → J6S 23:06
PROVIDERS: ADMIT Specialist; ATTEND Internal Medicine
DX: A41.50 Gram-negative sepsis, unspecified (principal); N10 Acute pyelonephritis; R53.1 Weakness; E11.9 Type 2 diabetes mellitus without complications; G20 Parkinson's disease; E78.5 Hyperlipidemia, unspecified
CPT/HCPCS: 36415; 71010-TC; 76536-TC; 76700-TC; 76775-TC; 80048; 80053; 81003; 81015; 82150; 83605; 83735; 84100; 84484; 85025; 85610; 86850; 86900; 86901; 87040; 87086; 87186; 93005; 93010; 97116-GP; 97161-GP; 99285-25; J1644

== ENCOUNTER 2019-07-26 13:37 | Inpatient (IN) | payer OTHER ==
[2019-07-26 14:32] LABS: BASO % 0.3 % (0-2.0); EOS % 1.3 % (0-4.5); HEMATOCRIT 40.3 % (32.4-45.2); HEMOGLOBIN 13.3 GM/dl (10.7-15.3); MCH 29.8 pg (25.7-33.7); MCHC 33.1 g/dl (32.0-36.0); MEAN CELL VOLUME 90.2 fl (80-96); MEAN PLT VOLUME 9.9 fl (7.5-11.1); MONO % 5.9 % (3.8-10.2); NEUT % 82.5 % (42.8-82.8); PLATELET COUNT 167 K/MM3 (134-434); RBC 4.47 M/mm3 (3.60-5.2); RDW 15.3 % (11.6-15.6); WHITE BLOOD COUNT 6.3 K/mm3 (4.0-10.8)
[2019-07-26 14:41] LABS: TRIGLYCERIDES 106 mg/dl (0-150)
--- NOTE | 2019-07-26 14:42 | PDOC ---
History of Present Illness - General Chief Complaint: Weakness Stated Complaint: RIGHT ARM WEAKNESS Time Seen by Provider: 07/26/19 13:41 History Source: Patient, Family (brother) Exam Limitations: No Limitations - History of Present Illness Initial Comments: 07/26/19 14:53 88y F with PMH of NIDDM, HTN, Parkinson's Disease presenting to ED with complaints of R arm weakness that started today at 9am. Patient states she was going to the bathroom after an enema and had sudden weakness of the R upper arm. She has not had symptoms like this before. She denies numbness/tingling, leg weakness, changes in vision, headache, chest pain, sob, injury, recent illnesses, n/v/d. She has not had a stroke before. She feels like she cannot really move the R arm. PMD: [facility] PMH: see hpi PSH: Allergies; nkda Social: denies tPA Exclusion Checklist 0-3hr - Time Elapsed Date last known well: 07/26/19 Time last known well: 09:00 Elaspsed time: Day(s) and 7 Hour(s) and 37 Minutes - Thrombolytic Therapy Candidate Is the patient eligible for Thrombolytic Therapy?: No - Ineligibility reason(s) Reasons No tPA given: Outside of window - delayed arrival NIH Stroke Scale - Last Known Well Date/Time & Onset Date Last Known Well: 07/26/19 Time Last Known Well: 09:00 - Initial Evaluation Level of consciousness: Alert Ask patient the month and their age: Answers both correctly Ask patient to open & close eyes; make fist and let go: Obeys both correctly Best gaze (horizontal eye movement): Normal Visual field testing: No visual field loss Facial paresis (Show teeth/raise eyebrows/close eyes tight): Normal symmetrical movement Motor Function: Left Arm: Normal Motor Function: Right Arm: Drift Motor Function: Left Leg: Normal (extends leg 30 degrees for 5 seconds without drift) Motor Function: Right Leg: Normal (extends leg 30 degrees for 5 seconds without drift) Limb Ataxia: No ataxia Sensory(Use pinprick test arms,legs,trunk,face/side to side): Normal Best language (Describe picture, name items, read sentences): No Aphasia Dysarthria (read several words): Normal articulation Extinction and Inattention: No abnormality - Total Score NIH Stroke Scale Score: 1 Past History - Past Medical History Allergies/Adverse Reactions: Allergies Allergy/AdvReac Type Severity Reaction Status Date / Time No Known Allergies Allergy Verified 07/26/19 14:14 Home Medications: Ambulatory Orders Atorvastatin Ca [Lipitor] 10 mg PO HS 01/20/17 Carbidopa/Levodopa [Carbidopa-Levo 25-100 mg Odt] 2 tab PO TID 01/20/17 Furosemide [Lasix] 40 mg PO DAILY 01/20/17 Potassium Chloride [K-Dur -] 20 meq PO DAILY 01/20/17 Ubidecarenone/Vitamin E [Co Q-10 50 mg Softgel] 50 mg PO DAILY 01/20/17 Vitamin B Complex [Ultra B-100 Complex] 1 each PO DAILY 01/20/17 metFORMIN HCL [Metformin HCl] 1,000 mg PO DAILY 01/20/17 Methenamine Hippurate [Hiprex [Nf] -] 1 gm PO DAILY 06/28/17 Carbidopa/Levodopa *Cr* 50/200 [Sinemet *Cr* 50/200 -] 1 combo PO HS 07/26/19 Cholecalciferol (Vitamin D3) [Vitamin D3 -] 1,000 unit PO DAILY 07/26/19 Duloxetine HCl [Cymbalta] 60 mg PO DAILY 07/26/19 Metformin HCl [Glucophage] 500 mg PO HS 07/26/19 Cardiac Disorders: Yes (CHF?) Diabetes: Yes HTN: Yes Hypercholesterolemia: Yes - Surgical History Appendectomy: Yes - Psycho Social/Smoking Cessation Hx Smoking Status: No Smoking History: Never smoked Have you smoked in the past 12 months: No Number of Cigarettes Smoked Daily: 0 Hx Alcohol Use: No Drug/Substance Use Hx: No Substance Use Type: None Hx Substance Use Treatment: No Review of Systems - Review of Systems Constitutional: No: Symptoms Reported HEENTM: No: Symptoms Reported Respiratory: No: Symptoms reported Cardiac (ROS): No: Symptoms Reported ABD/GI: No: Symptoms Reported : No: Symptoms Reported Musculoskeletal: Yes: See HPI Integumentary: No: Symptoms Reported Neurological: Yes: See HPI *Physical Exam - Physical Exam General Appearance: Yes: Appropriately Dressed, Obese. No: Apparent Distress HEENT: positive: EOMI, DULCE, Normal ENT Inspection Neck: positive: Trachea midline, Supple. negative: Carotid bruit, Lymphadenopathy (R), Lymphadenopathy (L) Respiratory/Chest: positive: Lungs Clear, Normal Breath Sounds. negative: Crackles, Rales, Rhonchi, Stridor, Wheezing Cardiovascular: positive: Regular Rhythm, Regular Rate, S1, S2. negative: Edema , JVD, Murmur Vascular Pulses: Dorsalis-Pedis (R): 2+, Doralis-Pedis (L): 2+ Gastrointestinal/Abdominal: positive: Normal Bowel Sounds, Soft. negative: Tender Musculoskeletal: negative: CVA Tenderness Extremity: positive: Normal Capillary Refill, Pedal Edema. 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 negative: Motor Strength 5/5 ( R 4/5. L 5/5 upper extremities. good hand grasp strength. ) ED Treatment Course - LABORATORY CBC & Chemistry Diagram: 07/26/19 14:15 07/26/19 14:15 - RADIOLOGY Radiology Studies Ordered: Category Date Time Status HEAD CT (STROKE) [CT] Stat CT Scan 07/26/19 13:59 Taken Medical Decision Making - Medical Decision Making 07/26/19 16:29 88y F with PMH of parkinsons, htn, niddm, presenting for r upper arm weakness at 9am (>4h urgent care physician). no other complaints. vitals wnl pe shows decreased r upper arm weakness, with drift. resting tremor, shuffling gait. ddx includes but not limited to cva/tia, cervical injury, transverse myelitis, neuropathy, myelitis, cva/tia workup initiated. outside of window for tpa. ct head; chronic microvascular ischemic changes. no acute infarct or bleed. labs wnl ekg: nsr at 83bpm, normal itervals. R axis. no viviane or depressions. discussed case with Dr. Sherwood, recommended cervical mri. will also obtain brain mri and carotid us. giving ASA 325mg. endorsed to Dr. Hughes. will admit tele. Discharge - Discharge Information Problems reviewed: Yes Clinical Impression/Diagnosis: Weakness Condition: Good - Follow up/Referral Referrals: Seferino Valentino MD [Primary Care Provider] - - Patient Discharge Instructions - Post Discharge Activity
[2019-07-26 14:43] LABS: ALBUMIN 4.4 g/dl (3.4-5.0); BILIRUBIN,TOTAL 1.1 mg/dl (0.2-1); CALCIUM 9.3 mg/dl (8.5-10); CREATININE 0.7 mg/dl (0.55-1.3); POTASSIUM 4.1 mmol/L (3.5-5.1); TOT PROT 7.4 g/dl (6.4-8.2)
[2019-07-26 15:15] LABS: ACTIVATED PTT 26.8 SECONDS (25.2-36.5)
[2019-07-26] MEDS ORDERED: ASPIRIN 325 MG ENTERIC COATED TABLET (FP) PO ONE (15:18)
[2019-07-26 15:19] LABS: INR 1.18 (0.82-1.09); PROTHROMBIN TIME (PATIENT) 13.2 SEC (10.2-13.0)
[2019-07-26 15:21] LABS: LDL CHOLESTEROL (ONLY SJRH) 49 mg/dL (5-100)
--- NOTE | 2019-07-26 15:21 | PDOC ---
Attending Attestation - Resident Resident Name: Cecile Ambrosio - ED Attending Attestation I have performed the following: I have examined & evaluated the patient, The case was reviewed & discussed with the resident, I agree w/resident's findings & plan - HPI HPI: 07/26/19 15:03 88y F with PMH of NIDDM, HTN, Parkinson's Disease presenting to ED with complaints of R arm weakness that started today at 9am. she has been constipated 1 week; Patient states she was going to the bathroom after an enema and experienced acute onset of weakness tothe R upper arm. She denies numbness/ tingling, leg weakness, changes in vision, headache, neck pain, chest pain, sob , injury, recent illnesses, n/v/d. She has not had a stroke before. - Physicial Exam PE: 07/26/19 15:04 Alert, oriented to person time and place. EOMI, PERRL. no nystagmus. pale conjunctiva. neck supple. no JVD. No carotid bruit, CN II-XII grossly intact. RUE pronator drift, 4/5 able to raise arm against gravity; no drift in LE, 5/5 dorsiflexion and plantar flexion. Sensation grossly intact to light touch. Speech clear. RRR, no murmur. lungs clear, no respiratory distress Abdomen soft, nontender. WWP. no calf tenderness. faint ecchymosis in right forearm. nontender. no bleeding. no skin wounds. - Medical Decision Making 07/26/19 15:21 Vital Signs Temp Pulse Resp BP Pulse Ox 98.3 F 90 18 129/108 H 95 07/26/19 13:39 07/26/19 13:39 07/26/19 13:39 07/26/19 13:39 07/26/19 13:39 Differential diagnosis includes CVA/stroke/TALLOW PUMPER lesion/mass. Carotid stenosis, dissection. Vertebral artery dissection. Aneurysm. Electrolyte abnormalities , anemia, ACS, arrhythmia. Not candidate for TPA as symptoms upon ED presentation with start time around 9 AM which is her last normal. NIH stroke scale is 1 due to the right upper extremity pronator drift. Basic laboratory results are within normal limits. Aspirin administered. Given suspicion for CVA. Neurologic consultation with Dr. morris call the on-call, recommended MRI brain and C-spine, amenable to admission, telemetry, will stay here at [place] [facility] pending MRI imaging, if abnormal can transfer then. will admit to Dr Saul shipley, s/o case. pt and family made aware of impression and plan, neuro cs, advanced imaging and continued medical management. 07/26/19 15:48
[2019-07-26] MEDS ORDERED: ASPIRIN 325 MG TABLET ONE (15:37)
--- NOTE | 2019-07-26 15:59 | HP ---
Admitting History and Physical - Primary Care Physician PCP: Seferino Valentino - Admission Chief Complaint: Rt sided UE weakness History of Present Illness: 88 yrs old F H/O T2DM, Dyslipedemia, Parkinsonism, lives at home present with c/ o Rt sided UE weakness since 9.00 am as per patient she took enema and went to toilet while coming back noticed that she cant lift her Rt arm at shoulder able to hold walker, no pain , LOC, LE motor weakness, dysarthria or chest pain, she called her brother and came to Ed for evaluation, denies any sensory change, speech changes fall or Neck pain, on arrival to ED AOX3 , hemodynamically stable, CT Head no acute changes, Neurology was consulted recommended stroke w/ u including MRI MRA neck and Brain. yesterday visited PMD office abx was prescribed for UTI , but UA in the Ed is unremarkable. 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 Cardiovascular: Yes: HTN, Hyperlipdemia Musculoskeletal: Yes: Chronic low back pain (spinal stenosis) Endocrine: Yes: Diabetes Mellitus - Past Surgical History Past Surgical History: Yes: Cataract Removal - Smoking History Smoking history: Never smoked Have you smoked in the past 12 months: No Aproximately how many cigarettes per day: 0 - Alcohol/Substance Use Hx Alcohol Use: No History of Substance Use: reports: None - Social History Usual Living Arrangement: Yes: Alone ADL: Independent History of Recent Travel: No Home Medications - Allergies Allergies/Adverse Reactions: Allergies Allergy/AdvReac Type Severity Reaction Status Date / Time No Known Allergies Allergy Verified 07/26/19 14:14 - Home Medications Home Medications: Ambulatory Orders Atorvastatin Ca [Lipitor] 10 mg PO HS 01/20/17 Carbidopa/Levodopa [Carbidopa-Levo 25-100 mg Odt] 2 tab PO TID 01/20/17 Furosemide [Lasix] 40 mg PO DAILY 01/20/17 Potassium Chloride [K-Dur -] 20 meq PO DAILY 01/20/17 Ubidecarenone/Vitamin E [Co Q-10 50 mg Softgel] 50 mg PO DAILY 01/20/17 Vitamin B Complex [Ultra B-100 Complex] 1 each PO DAILY 01/20/17 metFORMIN HCL [Metformin HCl] 1,000 mg PO DAILY 01/20/17 Methenamine Hippurate [Hiprex [Nf] -] 1 gm PO DAILY 06/28/17 Carbidopa/Levodopa *Cr* 50/200 [Sinemet *Cr* 50/200 -] 1 combo PO HS 07/26/19 Cholecalciferol (Vitamin D3) [Vitamin D3 -] 1,000 unit PO DAILY 07/26/19 Duloxetine HCl [Cymbalta] 60 mg PO DAILY 07/26/19 Metformin HCl [Glucophage] 500 mg PO HS 07/26/19 Family Medical History Family History: Unremarkable Review of Systems - Review of Systems Constitutional: denies: Chills, Diaphoresis, Fever, Lethargy, Loss of Appetite, Malaise Eyes: denies: Blind Spots, Blurred Vision, Double Vision, Eye Pain, Floaters, Photophobia HENT: denies: Difficult Swallowing, Ear Discharge, Ear Pain, Epistaxis Neck: denies: Decreased ROM, Lumps, Pain on Movement Cardiovascular: denies: Chest Pain, Edema, Palpitations Respiratory: denies: Exercise Intolerance, Hemoptysis Gastrointestinal: denies: Abdominal Pain, Bloating, Constipation Genitourinary: denies: Burning, Discharge, Dysuria Musculoskeletal: denies: Back Pain, Crepitus, Decreased ROM, Extremity Pain Integumentary: denies: Blister, Bruising, Change in Color Neurological: reports: Weakness (Rt shoulder). denies: Change in LOC, Change in Speech, Confusion, Dizziness, Incoordination, Numbness, Parasthesia Hematology/Lymphatic: reports: Easily Bruised. denies: Excessive Bleeding Psychiatric: reports: Depression. 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: Resting tremors , normal cranial N, Rt shoulder weakness #+ otherwise Rt Elbow and wrist are symmetrical, LE no weakness, EXT: Rt FA Bruise, Hemal afeet +, Pulses + Labs: CBC, BMP 07/26/19 14:15 07/26/19 14:15 Imaging - Results Chest X-ray: Report Reviewed (No acute infiltrates) Cat Scan: Report Reviewed (No acute changes cerbral atrophy) Ultrasound: Report Reviewed (Rt Carotid no obstruction atherosclerosis +, Left poorly visualised due to anatomical issue.) EKG: Report Reviewed (83 mt R, CA 134 QRS 78 QTc 444 axis 102 NSR, RAD) Problem List - Problems (1) Right arm weakness Assessment/Plan: Started around 9 am multiple RISK factors for CVA not a candidate for throimbolysis , bed rest, neurocheck, recived ASA 325 w on Stain will give one dose of 80 mg, Neuro consulted recommonded stroke/TIA w/u ECHO,Lipid Panel TSH, HbA1c, carotid Doppler, MRI MRA Bran and C spine, telemonitoting Problems reviewed: Yes Code(s): R29.898 - OTH SYMPTOMS AND SIGNS INVOLVING THE MUSCULOSKELETAL SYSTEM (2) Diabetes Assessment/Plan: Hold Po Meds Diabetic Diet correction dose insulin AC, F/U HBA1C Code(s): E11.9 - TYPE 2 DIABETES MELLITUS WITHOUT COMPLICATIONS Qualifiers: Diabetes mellitus type: type 2 (3) HTN (hypertension) Assessment/Plan: Hold BP meds observe Problems reviewed: Yes Code(s): I10 - ESSENTIAL (PRIMARY) HYPERTENSION (4) Parkinson disease Assessment/Plan: Cont Home meds Problems reviewed: Yes Code(s): G20 - PARKINSON'S DISEASE (5) Dyslipidemia Assessment/Plan: Cont statin. F/U TSH< Lipid panel Problems reviewed: Yes Code(s): E78.5 - HYPERLIPIDEMIA, UNSPECIFIED (6) Constipation Assessment/Plan: milk of magnesis 30 cc PRN , last BM was 2 wks ago., able to pass gases, no pain or clinical signs or symptoms of obstruction. Problems reviewed: Yes Code(s): K59.00 - CONSTIPATION, UNSPECIFIED
[2019-07-26] MEDS ORDERED: MAGNESIUM SULF 50% (8.12 MEQ/2 ML-1 GM VIAL) IVPB ONE (16:13)
[2019-07-26 16:16] LABS: CHOLESTEROL 109 mg/dl (50-200); HDL CHOLESTEROL 38 mg/dl (40-60); TRIGLYCERIDES 105 mg/dl (0-150)
[2019-07-26] MEDS ORDERED: MAGNESIUM HYDROX 2400MG/30ML ORAL SUSPENSION 30 ML CUP PO PRN (16:50)
[2019-07-26] MEDS ORDERED: MAGNESIUM 1GM/D5W - 1 GM/100 ML IVPB IVPB ONE (18:38)
[2019-07-26 19:49] VITALS: BMI 33.6
[2019-07-26 21:08] LABS: LDL CHOLESTEROL (ONLY SJRH) 50 mg/dL (5-100)
[2019-07-26] MEDS: ATORVASTATIN CA 10 MG TABLET (FP) PO SCH (22:09)
[2019-07-26] MEDS: SODIUM CHLORIDE 1,000 ML IV SCH (23:00)
[2019-07-27] MEDS: CARBIDOPA/LEVODOPA 25/100 TABLET (FP) PO SCH ×2 (06:42→12:15)
[2019-07-27] MEDS: INSULIN SLIDING SCALE (NOVOLOG) 1 VIAL SQ SCH ×2 (07:09→14:39)
[2019-07-27 08:30] LABS: CALCIUM 8.9 mg/dl (8.5-10); CREATININE 0.7 mg/dl (0.55-1.3); POTASSIUM 3.6 mmol/L (3.5-5.1)
--- NOTE | 2019-07-27 09:31 | PN ---
Physical Exam: SUBJECTIVE: Patient seen and examined at the bedside. feels well, denies malaise. but reports constipation x 2 weeks. went to her pcp and put on laxatives, but not working. no nausea or vomiting. OBJECTIVE: patient for stroke workup and neuro recommended brain and cervical spine mris. Patient and granddaughter refusing as she is unable to tolerate these tests, she is unable to sit still 2/2 to parkinsons tremors. therefore, ordered a ct spine to further evaluate. Patient is a 88 yr old female with a past medical hx of diabetes, dyslipedemia, parkinsonism, lives at home who comes to the ED with c/o Rt sided UE weakness. patient is unable to lift her Rt arm and shoulder or unable to hold walker. she called her brother and came to Ed for evaluation. She denies any sensory change, falls or trauma. Neurology was consulted recommended stroke w/u. per ED note, patient visited PMD office abx was prescribed for UTI , but UA in the Ed is unremarkable. Vital Signs Period Temp Pulse Resp BP Sys/Chery Pulse Ox Last 24 Hr 97.6 F-98.7 F 64-90 17-18 119-160/49-108 95-96 GENERAL: The patient is awake, alert, and fully oriented, in no acute distress. HEAD: Normal with no signs of trauma. EYES: PERRL, extraocular movements intact, sclera anicteric, conjunctiva clear. No ptosis. ENT: Ears normal, nares patent, oropharynx clear without exudates, moist mucous membranes. NECK: Trachea midline, full range of motion, supple. LUNGS: Breath sounds equal, clear to auscultation bilaterally HEART: Regular rate and rhythm ABDOMEN: Soft, nontender, nondistended, normoactive bowel sounds, no abdominal pain. EXTREMITIES: no edema. NEUROLOGICAL: Normal speech, gait not observed. PSYCH: Normal mood, normal affect. SKIN: Warm, dry, normal turgor, no rashes or lesions noted Laboratory Results - last 24 hr 07/26/19 07/26/19 07/26/19 14:15 14:15 14:15 WBC 6.3 RBC 4.47 Hgb 13.3 Hct 40.3 MCV 90.2 MCH 29.8 MCHC 33.1 RDW 15.3 Plt Count 167 MPV 9.9 Absolute Neuts (auto) 5.2 Neutrophils % 82.5 Lymphocytes % 10.0 Monocytes % 5.9 Eosinophils % 1.3 Basophils % 0.3 PT with INR INR PTT (Actin FS) Sodium 142 Potassium 4.1 Chloride 103 Carbon Dioxide 23 Anion Gap 16 BUN 23.0 H Creatinine 0.7 Est GFR (CKD-EPI)AfAm 89.03 Est GFR (CKD-EPI)NonAf 76.82 POC Glucometer Random Glucose 141 H Calcium 9.3 Magnesium Total Bilirubin 1.1 H AST 21 ALT 5 L Alkaline Phosphatase 61 Creatine Kinase 126 Troponin I 0.03 Total Protein 7.4 Albumin 4.4 Triglycerides Cholesterol 106 Total LDL Cholesterol HDL Cholesterol 38 L Urine Color Urine Appearance Urine pH Urine Protein Urine Glucose (UA) Urine Ketones Urine Blood Urine Nitrite Urine Bilirubin Urine Urobilinogen Ur Leukocyte Esterase Urine RBC Urine WBC Urine Bacteria 07/26/19 07/26/19 07/26/19 14:15 14:15 14:15 WBC RBC Hgb Hct MCV MCH MCHC RDW Plt Count MPV Absolute Neuts (auto) Neutrophils % Lymphocytes % Monocytes % Eosinophils % Basophils % PT with INR INR PTT (Actin FS) Sodium Potassium Chloride Carbon Dioxide Anion Gap BUN Creatinine Est GFR (CKD-EPI)AfAm Est GFR (CKD-EPI)NonAf POC Glucometer Random Glucose Calcium Magnesium 1.5 L Total Bilirubin AST ALT Alkaline Phosphatase Creatine Kinase Troponin I Total Protein Albumin Triglycerides 106 105 Cholesterol 109 Total LDL Cholesterol 49 50 HDL Cholesterol 38 L Urine Color Urine Appearance Urine pH Urine Protein Urine Glucose (UA) Urine Ketones Urine Blood Urine Nitrite Urine Bilirubin Urine Urobilinogen Ur Leukocyte Esterase Urine RBC Urine WBC Urine Bacteria 07/26/19 07/26/19 07/27/19 14:55 15:50 06:53 WBC RBC Hgb Hct MCV MCH MCHC RDW Plt Count MPV Absolute Neuts (auto) Neutrophils % Lymphocytes % Monocytes % Eosinophils % Basophils % PT with INR 13.2 H INR 1.18 PTT (Actin FS) 26.8 Sodium Potassium Chloride Carbon Dioxide Anion Gap BUN Creatinine Est GFR (CKD-EPI)AfAm Est GFR (CKD-EPI)NonAf POC Glucometer 131 Random Glucose Calcium Magnesium Total Bilirubin AST ALT Alkaline Phosphatase Creatine Kinase Troponin I Total Protein Albumin Triglycerides Cholesterol Total LDL Cholesterol HDL Cholesterol Urine Color Yellow Urine Appearance Clear Urine pH 6.0 Urine Protein Negative Urine Glucose (UA) Negative Urine Ketones Negative Urine Blood Trace-intact Urine Nitrite Positive H Urine Bilirubin Negative Urine Urobilinogen 0.2 Ur Leukocyte Esterase 2+ Urine RBC 2-5 Urine WBC 10-20 Urine Bacteria Moderate 07/27/19 07:25 WBC RBC Hgb Hct MCV MCH MCHC RDW Plt Count MPV Absolute Neuts (auto) Neutrophils % Lymphocytes % Monocytes % Eosinophils % Basophils % PT with INR INR PTT (Actin FS) Sodium 141 Potassium 3.6 Chloride 103 Carbon Dioxide 28 Anion Gap 10 BUN 18.0 Creatinine 0.7 Est GFR (CKD-EPI)AfAm 89.03 Est GFR (CKD-EPI)NonAf 76.82 POC Glucometer Random Glucose 162 H Calcium 8.9 Magnesium Total Bilirubin AST ALT Alkaline Phosphatase Creatine Kinase Troponin I Total Protein Albumin Triglycerides Cholesterol Total LDL Cholesterol HDL Cholesterol Urine Color Urine Appearance Urine pH Urine Protein Urine Glucose (UA) Urine Ketones Urine Blood Urine Nitrite Urine Bilirubin Urine Urobilinogen Ur Leukocyte Esterase Urine RBC Urine WBC Urine Bacteria Active Medications Generic Name Dose Route Start Last Admin Trade Name Freq PRN Reason Stop Dose Admin Aspirin 81 mg 07/27/19 10:00 Asa - PO DAILY ROSANNE Atorvastatin Calcium 10 mg 07/26/19 22:00 07/26/19 22:09 Lipitor - PO 10 mg HS ROSANNE Administration Carbidopa/Levodopa 2 each 07/27/19 07:00 07/27/19 06:42 Sinemet 25/100 - PO 2 each 0700,1200,1600 ROSANNE Administration Carbidopa/Levodopa 1 combo 07/26/19 22:00 07/26/19 22:09 Sinemet *Cr* 50/200 - PO 1 combo HS ROSANNE Administration Duloxetine HCl 60 mg 07/27/19 10:00 Cymbalta - PO DAILY ROSANNE Sodium Chloride 1,000 mls @ 55 mls/hr 07/26/19 16:15 07/26/19 23:00 Normal Saline - IV 55 mls/hr ASDIR ROSANNE Administration Insulin Aspart 1 vial 07/26/19 16:30 07/27/19 07:09 Novolog Vial Sliding Scale - SQ Not Given [facility] Protocol Magnesium Hydroxide 30 ml 07/26/19 16:50 07/27/19 06:50 Milk Of Magnesia - PO 30 ml Q8H PRN Administration INDIGESTION Non-Formulary Medication 1 each 07/27/19 10:00 Vitamin B Complex [Ultra B-100 Complex] PO DAILY ROSANNE Potassium Chloride 20 meq 07/27/19 10:00 K-Dur - PO DAILY ROSANNE ASSESSMENT/PLAN: Problem List - Problems (1) Right arm weakness Assessment/Plan: for mri of cervical spine and brain mri, but patient refusing these tests. agrees with CT of spine. has motion artifact on original head ct and likely unable to tolerate mri which is for longer period physical therapy eval. repeat head ct if symptoms continue multiple RISK factors for CVA not a candidate for thrombolysis, neurocheck, continue asa with statin therapy. neuro consulted and case discussed tele monitoring Code(s): R29.898 - OTH SYMPTOMS AND SIGNS INVOLVING THE MUSCULOSKELETAL SYSTEM (2) Constipation Assessment/Plan: add stool softners, miralax. no acute signs of obstruction. abdomen soft, without nausea/vomiting. Code(s): K59.00 - CONSTIPATION, UNSPECIFIED (3) Generalized weakness Assessment/Plan: physical therapy ordered PT/OT evaluation Code(s): R53.1 - WEAKNESS (4) Parkinson disease Assessment/Plan: on sinemet Code(s): G20 - PARKINSON'S DISEASE Visit type - Emergency Visit Emergency Visit: Yes ED Registration Date: 07/26/19 Care time: The patient presented to the Emergency Department on the above date and was hospitalized for further evaluation of their emergent condition. - New Patient This patient is new to me today: Yes Date on this admission: 07/27/19 - Critical Care Critical Care patient: No - Discharge Referral Referred to [facility] No
--- NOTE | 2019-07-27 09:39 | CONSULT ---
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 Cardiovascular: Yes: HTN, Hyperlipdemia ...LMP Comment: 88 YEARS OLD ...: No Musculoskeletal: Yes: Chronic low back pain (spinal stenosis) Endocrine: Yes: Diabetes Mellitus - Past Surgical History Past Surgical History: Yes: Cataract Removal - Advance Directives Advance Directives: Yes: Health Care Proxy - Smoking History Smoking history: Never smoked Have you smoked in the past 12 months: No Aproximately how many cigarettes per day: 0 - Alcohol/Substance Use Hx Alcohol Use: No History of Substance Use: reports: None - Social History ADL: Independent History of Recent Travel: No History - Admission Reason For Visit: WEAKNESS/PARKINSON'S DISEASE/CVA Speech Evaluation - Communication Primary Language: PALAUAN Secondary Language: DANISH Communication: Yes: Within Normal Limits, Simple Responses, Hearing Deficit ( mild) Oral Expression Ability: Yes: Mild Impairment (secondary to hearing loss) - Speech Production Apraxia: No Able to Make Needs Known: Yes: WNL Intelligibility: Yes: WNL - Speech Characteristics Voice Loudness: Normal Voice Pitch: Yes: Normal Voice Phonatory-based Quality: Yes: Normal Speech Pattern: Normal Nasal Resonance: Normal Articulation: Yes: Precise Rate of Speech: Intact - Language/Auditory Comprehension Follows: Yes: 1 Stage Simple Commands (WFL), 2 Stage Simple Commands (WFL) Observation: Able to respond to yes/no queries: Yes, Yes/No Confusion: No, Comprehends Conversational Speech: Yes, Benefits from Slow Speech: Yes, Benefits from Repetiton: No, Benefits from Increased Volume of Speech: Yes - Language/Verbal Expression Able to Respond to Simple Queries: Yes: WNL Able to Communicate Wants and Needs: Yes: WNL Functional Communication Status: Yes: WNL Aware of Errors: Yes Attempts to Correct Errors: Yes Use of Gestures: No Written Expression: Not examined Oral Expression: WFL Reading Comprehension: Not examined Calculations: Not examined Attention: Yes: Intact - Memory/Perception regional engagement consultant Memory: Yes: WNL Short Term Memory: Yes: WNL - Swallow Evaluation/Bedside Assessment Current Nutritional Intake: Regular, Thin Liquids Oral Secretions: Yes: WFL Tracheostomy Present: No Patient on Ventilator: No Dentition: Yes: Adequate Facial Symmetry at Rest: Symmetrical Facial Symmetry on Retraction: Symmetrical Facial Movement: Controlled Sensation: Normal Jaw Position: Closed at Rest Against Resistance Opening: Normal Against Resistance Closing: Normal Lips, Comment: WFL for speech and swallowing purposes Lingual Movement: Normal Lingual Speed of Movement: Normal Lingual Movement Strgth Against Opposition: Normal Lingual Movement Characteristics: Normal Lingual Comment: WFL for speech and swallowing purposes Soft Palate Description: Normal Color Hard Palate Description: Normal Color Gag Reflex: Strong Bite Reflex: Present Velopharyngeal Movement: Normal Laryngeal Elevation: WFL Laryngeal Movement: Able to Palpate Needs Assistance: Yes Rate of Intake: WFL Bolus Size: WFL Labial Seal: WFL Chewing: WFL Oral Prep Time: WFL A-P Transit: WFL Timing of Swallow: WFL Odynophagia: Oral Coughing/Throat Clear: No Change in Voice: No Other Findings/Remarks: 88 yo female seen at chairside on unit for swallow eval to r/o dysphagia. Pt is verbal (Bermudian is her primary language but speaks Nigerien), A&Ox3, cooperative. PMHX includes: Diabetes, HTN, Parkinson Disease, constipation and dyslipidemia. Admitted to [facility] for right sided UE weakness (does not affect speech or swallowing at this time). Current diet: regular diabetic heart healthy solids with thin liquids. Pt given po trials of purees, regular solids with some assistance revealed good acceptance, increased bolus formation time, adequate transport. Pharyngeal swallow appears timely with no changes in voicing and /or respiration at this time. Thin liquids trials (unassisted) were unremarkable for dysphagia at this time. Recommendations - Speech Evaluation, Impression/Plan Impression: 88 yo female present with mild oral preparation phase dysphagia secondary to right sided UE weakness. Pt is able to consume purees, regular solids with thin liquids without s/s of aspiration at this time. Speech and language are WNL. Nursing Home Goals: tolerate the least restrictive diet without s/s of aspiration at chairside. Short Term Goals: consume purees, regular solids with thin liquids without s/s aspiration. - Dysphagia Impressions/Plan Swallowing Skills: Impaired Dysphagia Impressions: Minimal Impairment (oral preparation phase) Dysphagia Treatment Plan: Safe Rate, Elevate HOB during feed, OOB for meals, OOB for 1 h. after meals, Other (monitor nutritional intake and pulmonary status ) Dysphagia Evaluation Summary: Continue with diabetic heart healthy solids with thin liquids as tolerated. OOB for meal (when possible). Observe standard aspiration precautions. Medication can be given whole. No further speech intervention needed unless there is a change in medical status. Results given to charge aide and PCP via chart. Recommendations: Neuro Consult - Recommendations Diet Consistency: Regular (diabetic, heart healthy.) Medication Administration: Whole with water Liquids: Thin Liquids
[2019-07-27] MEDS: DULoxetine HCL 30 MG CAPSULE.DR PO SCH (09:47)
[2019-07-27] MEDS: ASPIRIN 81 MG CHEWABLE TABLETS PO SCH (09:47)
[2019-07-27] MEDS: POTASSIUM CHLORIDE TABS 20 MEQ TABLET.ER (FP) PO SCH (09:48)
[2019-07-27] MEDS ORDERED: DULoxetine HCL 60 MG CAPSULE.DR PO SCH (10:00)
[2019-07-27] MEDS ORDERED: VITAMIN B COMPLEX PO SCH (10:00)
--- NOTE | 2019-07-27 12:08 | CONSULT ---
Consult - text type - Consultation Consultation Note: NEUROLOGY CONSULTATION is greatly appreciated: Events reviewed and discussed with Merrick Engel. Patient examined. This 89 yo RH woman lives alone with a GLUE COOK 3 hrs M-F. PMH sig for DM, HTN, Chol, deprssion and Parkinson's disease (followed by Dr. Bette Garvey) Maintained on: Atorvastatin; Carbidopa/Levodopa (50/200 QID); Furosemide; metFORMIN; and Duloxetin. Chronic constipation- notes no BM's x 2 weeks. Yesterday, after aide gave an enema, patient was straining at stool when she had the sudden onset of a "crawling sensation" in the right arm and weakness. CT of head (reviewed): Moderate, diffuse atrophy with scattered microvascular changes. No discrete CVA Carotid duplex doppler: No sig stenosis TIERA: No head trauma. No bruits. Cor reg. Decreased neck ROM NEURO: Awake, alert, well-oriented. Fluent speech CN II-XII: Full montejo and EOM's. Min jaw tremor. No facial. Tongue MICHAEL's and gag OK Motor: Min rest tremor on left. Min Cogwheeling . Well-preserved MICHAEL' s Formal muscle testing reveals isolated weakness of right elbow extension. All other groups have normal strength. Absent right Biceps and brachioradialis reflexes (present on the left. Reduced KJ's. Absent AJ's. Toes downgoing. Coord: No obvious dystaxia Sensory: Decreased vibration in the legs Stands with assistance. Sl flexed. Shuffling. IMP: Probable C6 radiculopathy on the right. Doubt CVA Mild Parkinsonism. Suggest: Continue Sinemet CR 50/200 TID @ 7AM, 12 noon and 5 PM. D/C HS Sinemet MRI of cervical Spine (C-) PT/OT eval. Should be continued on an out Pt. basis. 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 Thank you very much, Seferino Sherwood MD
[2019-07-27] MEDS ORDERED: MAGNESIUM OXIDE 400 MG TABLET (FP) PO ONE (13:30)
--- NOTE | 2019-07-27 14:13 | EKG ---
Test Reason : Blood Pressure : / mmHG Vent. Rate : 082 BPM Atrial Rate : 082 BPM P-R Int : 140 ms QRS Dur : 082 ms QT Int : 370 ms P-R-T Axes : 026 097 028 degrees QTc Int : 432 ms POOR DATA QUALITY, INTERPRETATION MAY BE ADVERSELY AFFECTED NORMAL SINUS RHYTHM RIGHTWARD AXIS POOR R WAVE PROGRESSION WHEN COMPARED WITH ECG OF 26-JUL-2019 14:31, NO SIGNIFICANT CHANGE WAS FOUND Confirmed by DAVONTE MILNER MD ([id number]) on 07/27/2019 2:12:53 PM Referred By: ANANTH GARCIA Confirmed By:DAVONTE MILNER MD
--- NOTE | 2019-07-27 14:48 | ECHO ---
Name: PATRICIA PINA Exam:Adult Echocardiogram Study Date: 07/27/2019 02:08 PM Age: 88 yrs Reason For Study: SYNCOPE Height: 62 in Weight: 183 lb BSA: 1.8 m2 MMode/2D Measurements & Calculations IVSd: 1.2 cm Ao root diam: 2.3 cm LVIDd: 4.2 cm LA dimension: 3.5 cm LVIDs: 2.8 cm LVPWd: 1.0 cm EDV(Teich): 77.5 ml LVOT diam: 2.0 cm ESV(Teich): 30.4 ml Doppler Measurements & Calculations MV E max jeannine: 80.7 cm/sec MV A max jeannine: 133.2 cm/sec MV dec slope: 302.8 cm/sec2 MV E/A: 0.61 Ao V2 max: 164.9 cm/sec LV V1 max P.1 mmHg Ao max P.9 mmHg LV V1 max: 100.8 cm/sec DEEPA(V,D): 1.9 cm2 MR max jeannine: 337.1 cm/sec TR max jeannine: 285.3 cm/sec MR max P.4 mmHg TR max P.8 mmHg PA V2 max: 106.0 cm/sec PI end-d jeannine: 119.1 cm/sec PA max P.5 mmHg Left Ventricle There is mild concentric left ventricular hypertrophy. Ejection Fraction = 55-60%. The transmitral sp ectral Doppler flow pattern is suggestive of impaired LV relaxation. Right Ventricle The right ventricle is normal in size and function. Atria The left atrium is mildly dilated. Right atrial size is normal. Mitral Valve There is moderate mitral annular calcification. There is no mitral valve stenosis. There is mild mitr al regurgitation. Tricuspid Valve The tricuspid valve is normal in structure and function. There is mild tricuspid regurgitation. Right ventricular systolic pressure is elevated at 30-40mmHg. Aortic Valve There is mild aortic sclerosis.;. No hemodynamically significant valvular aortic stenosis. No aortic regurgitation is present. Pulmonic Valve The pulmonic valve is not well seen, but is grossly normal. There is no pulmonic valvular stenosis. M ild pulmonic valvular regurgitation. Great Vessels The aortic root is normal size. Pericardium/Pleura There is no pericardial effusion. Interpretation Summary There is mild concentric left ventricular hypertrophy. Ejection Fraction = 55-60%. The transmitral spectral Doppler flow pattern is suggestive of impaired LV relaxation. The right ventricle is normal in size and function. The left atrium is mildly dilated. There is moderate mitral annular calcification. There is mild mitral regurgitation. There is mild tricuspid regurgitation. Right ventricular systolic pressure is elevated at 30-40mmHg. There is mild aortic sclerosis.; There is no pericardial effusion. MD Mosley *Lina 07/27/2019 02:47 PM
[2019-07-27] MEDS ORDERED: MAGNESIUM CITRATE 300 ML BOTTLE PO ONE (15:54)
[2019-07-27] MEDS: SODIUM CHLORIDE 1,000 ML IV SCH (16:30)
[2019-07-27] MEDS: DOCUSATE SODIUM 100 MG CAPSULE (FP) PO SCH (22:00)
[2019-07-27] MEDS: ATORVASTATIN CA 10 MG TABLET (FP) PO SCH (22:30)
[2019-07-28] MEDS: DOCUSATE SODIUM 100 MG CAPSULE (FP) PO SCH ×3 (06:34→21:57)
[2019-07-28] MEDS: INSULIN SLIDING SCALE (NOVOLOG) 1 VIAL SQ SCH ×3 (06:56→19:04)
[2019-07-28 08:33] LABS: BASO % 0.5 % (0-2.0); EOS % 2.5 % (0-4.5); HEMATOCRIT 39.9 % (32.4-45.2); HEMOGLOBIN 12.9 GM/dl (10.7-15.3); LYMPH % 17.6 % (8-40); MCH 29.4 pg (25.7-33.7); MCHC 32.3 g/dl (32.0-36.0); MONO % 6.1 % (3.8-10.2); NEUT % 73.3 % (42.8-82.8); PLATELET COUNT 163 K/MM3 (134-434); RBC 4.39 M/mm3 (3.60-5.2); RDW 15.2 % (11.6-15.6); WHITE BLOOD COUNT 5.2 K/mm3 (4.0-10.8)
--- NOTE | 2019-07-28 08:42 | PN ---
Physical Exam: SUBJECTIVE: Patient seen and examined, repots no BM for ? 2weesk. Pt denies MESSER, dizziness, blurred or double vision,cp, sob, palpitations, abdominal pain, N/V/D, or urinary symptoms. OBJECTIVE: Vital Signs Period Temp Pulse Resp BP Sys/Chery Pulse Ox Last 24 Hr 98.1 F-98.6 F 65-79 17-20 125-145/56-64 96-97 GENERAL: The patient is awake, alert, and fully oriented, in no acute distress. HEAD: Normal with no signs of trauma. EYES: PERRL, extraocular movements intact, sclera anicteric, conjunctiva clear. No ptosis. ENT: Ears normal, nares patent, oropharynx clear without exudates, moist mucous membranes. NECK: Trachea midline, full range of motion, supple. LUNGS: Breath sounds equal, clear to auscultation bilaterally, no wheezes, no crackles, no accessory muscle use. HEART: Regular rate and rhythm, S1, S2 without murmur, rub or gallop. ABDOMEN: Soft, nontender, nondistended, normoactive bowel sounds, no guarding, no rebound, no hepatosplenomegaly, no masses. EXTREMITIES: 2+ pulses, warm, well-perfused, no edema., RUE weakness NEUROLOGICAL: Cranial nerves II through XII grossly intact. Normal speech, gait not observed. PSYCH: Normal mood, normal affect. SKIN: Warm, dry, normal turgor, no rashes or lesions noted Laboratory Results - last 24 hr 07/27/19 07/27/19 07/27/19 07:25 07:25 14:37 Sodium 141 Potassium 3.6 Chloride 103 Carbon Dioxide 28 Anion Gap 10 BUN 18.0 Creatinine 0.7 Est GFR (CKD-EPI)AfAm 89.03 Est GFR (CKD-EPI)NonAf 76.82 POC Glucometer 161 Random Glucose 162 H Hemoglobin A1c % 6.6 H Calcium 8.9 07/28/19 06:54 Sodium Potassium Chloride Carbon Dioxide Anion Gap BUN Creatinine Est GFR (CKD-EPI)AfAm Est GFR (CKD-EPI)NonAf POC Glucometer 138 Random Glucose Hemoglobin A1c % Calcium Active Medications Generic Name Dose Route Start Last Admin Trade Name Freq PRN Reason Stop Dose Admin Aspirin 81 mg 07/27/19 10:00 07/27/19 09:47 Asa - PO 81 mg DAILY ROSANNE Administration Atorvastatin Calcium 10 mg 07/26/19 22:00 07/27/19 22:30 Lipitor - PO 10 mg HS ROSANNE Administration Carbidopa/Levodopa 1 combo 07/27/19 17:00 07/28/19 06:34 Sinemet *Cr* 50/200 - PO 1 combo TID@0700,1200,1700 ROSANNE Administration Docusate Sodium 100 mg 07/27/19 14:00 07/28/19 06:34 Colace - PO 100 mg TID ROSANNE Administration Duloxetine HCl 60 mg 07/27/19 10:00 07/27/19 09:47 Cymbalta - PO 60 mg DAILY ROSANNE Administration Sodium Chloride 1,000 mls @ 55 mls/hr 07/26/19 16:15 07/27/19 16:30 Normal Saline - IV 55 mls/hr ASDIR ROSANNE Administration Insulin Aspart 1 vial 07/26/19 16:30 07/28/19 06:56 Novolog Vial Sliding Scale - SQ Not Given TIDAC ROSANNE Protocol Magnesium Hydroxide 30 ml 07/26/19 16:50 07/27/19 06:50 Milk Of Magnesia - PO 30 ml Q8H PRN Administration INDIGESTION Non-Formulary Medication 1 each 07/27/19 10:00 Vitamin B Complex [Ultra B-100 Complex] PO DAILY ROSANNE Polyethylene Glycol 17 gm 07/28/19 10:00 Miralax (For Daily Use) - PO DAILY ROSANNE Potassium Chloride 20 meq 07/27/19 10:00 07/27/19 09:48 K-Dur - PO 20 meq DAILY ROSANNE Administration ASSESSMENT/PLAN: Patient is a 88 yr old female with a past medical hx of diabetes,HDL,,HTN, spinal stenosis, Parkinsonism, lives at home who comes to the ED with c/o Rt sided UE weakness. *Right arm weakness - CT Head: No acute intracranial pathology, mod atropthy -carotid US: Rt Carotid no obstruction atherosclerosis +, Left poorly visualised due to anatomical issue.) -EKG: Report Reviewed (83 mt R, ME 134 QRS 78 QTc 444 axis 102 NSR, RAD) - Neuro consulted , rec MR -pt refused cervical spine and brain MRI, agreed for CT cervical spine - CT of spine done: DJD, multilevel central and bilateral foramen stenosis, non - specific 2x2x1.5 com soft tissue nodule , ? thyroid tissue vs lymph node - PT eval done, rec PT, OT services vs SNF - will cont on ASA, Statin - Echo done, reviewed, EF 50-60% - tele monitoring - neuro checks - EMBEDDED CASE MANAGER done: rec Continue with diabetic heart healthy solids with thin liquids as tolerated - general aspiration precautions * DM - Hgb Alc 6.6 - FS AC& HS - Lispro sliding scale - will hold off home dose Metformin *Constipation - Abdominal xray: cannot rule out obstruction, fecal retention -no pain or clinical signs or symptoms of obstruction -s/p Citrate of mg, MOM - no effect - added enema - will cont on laxatives - will monitor - will order CT if no BM after enema *HTN- BP stable -Hold BP meds observe *Parkinson disease - will cont on home dose Sinemet *Dyslipidemia - will cont on Statin *Generalized weakness -PT/OT evaluation done, rec PT, OT services vs SNF *Parkinson disease - will cont on sinemet * soft tissue nodule, ? thyroid tissue vs lymph node - out pt f/u * VTE Heparin SQ * F/E/N: Diabetic low fat diet Visit type - Emergency Visit Emergency Visit: Yes ED Registration Date: 07/26/19 Care time: The patient presented to the Emergency Department on the above date and was hospitalized for further evaluation of their emergent condition. - New Patient This patient is new to me today: Yes Date on this admission: 07/29/19 - Critical Care Critical Care patient: No
[2019-07-28 08:44] LABS: ALBUMIN 4.2 g/dl (3.4-5.0); BILIRUBIN,TOTAL 1.2 mg/dl (0.2-1); CALCIUM 9.2 mg/dl (8.5-10); CREATININE 0.7 mg/dl (0.55-1.3); MAGNESIUM 2.4 mg/dL (1.8-2.4); POTASSIUM 4.6 mmol/L (3.5-5.1); TOT PROT 6.8 g/dl (6.4-8.2)
[2019-07-28] MEDS: POLYETHYLENE GLYCOL 3350 119 GM BTL PO SCH (10:00)
[2019-07-28] MEDS: POTASSIUM CHLORIDE TABS 20 MEQ TABLET.ER (FP) PO SCH (10:00)
[2019-07-28] MEDS: ASPIRIN 81 MG CHEWABLE TABLETS PO SCH (10:00)
[2019-07-28] MEDS: DULoxetine HCL 30 MG CAPSULE.DR PO SCH (10:00)
[2019-07-28] MEDS: HEPARIN NA (PORCINE) 5,000 UNITS/ML 1ML VIAL SQ SCH ×2 (17:00→21:57)
[2019-07-28] MEDS: ATORVASTATIN CA 10 MG TABLET (FP) PO SCH (21:57)
[2019-07-29] MEDS: HEPARIN NA (PORCINE) 5,000 UNITS/ML 1ML VIAL SQ SCH ×3 (06:56→22:41)
[2019-07-29] MEDS: DOCUSATE SODIUM 100 MG CAPSULE (FP) PO SCH ×3 (06:56→22:41)
[2019-07-29] MEDS: INSULIN SLIDING SCALE (NOVOLOG) 1 VIAL SQ SCH ×2 (06:56→16:36)
[2019-07-29] MEDS: ASPIRIN 81 MG CHEWABLE TABLETS PO SCH (10:00)
[2019-07-29] MEDS: POTASSIUM CHLORIDE TABS 20 MEQ TABLET.ER (FP) PO SCH (10:45)
[2019-07-29] MEDS: DULoxetine HCL 30 MG CAPSULE.DR PO SCH (10:45)
[2019-07-29] MEDS: POLYETHYLENE GLYCOL 3350 119 GM BTL PO SCH (10:45)
--- NOTE | 2019-07-29 11:22 | PN ---
Physical Exam: SUBJECTIVE: Patient seen and examined, daughter present, updated on labs CT abd/ pelvis tap water enema given yesterday with no results- will order tap water for today , bisacodyl 20mg x 1 PO denies n/v, abd pain. OBJECTIVE: Vital Signs Period Temp Pulse Resp BP Sys/Chery Pulse Ox Last 24 Hr 97.9 F-98.4 F 54-71 18-20 102-130/41-63 93-96 GENERAL: The patient is awake, alert, and fully oriented, in no acute distress. HEAD: Normal with no signs of trauma. EYES: PERRL, extraocular movements intact, sclera anicteric, conjunctiva clear. No ptosis. ENT: Ears normal, nares patent, oropharynx clear without exudates, moist mucous membranes. NECK: Trachea midline, full range of motion, supple. LUNGS: Breath sounds equal, clear to auscultation bilaterally, no wheezes, no crackles, no accessory muscle use. HEART: Regular rate and rhythm, S1, S2 without murmur, rub or gallop. ABDOMEN: Soft, nontender, nondistended, normoactive bowel sounds, no guarding, no rebound, no hepatosplenomegaly, no masses. EXTREMITIES: 2+ pulses, warm, well-perfused, no edema. NEUROLOGICAL: Cranial nerves II through XII grossly intact. Normal speech, gait not observed. PSYCH: Normal mood, normal affect. SKIN: Warm, dry, normal turgor, no rashes or lesions noted Laboratory Results - last 24 hr 07/28/19 07/29/19 16:52 06:55 POC Glucometer 136 134 Active Medications Generic Name Dose Route Start Last Admin Trade Name Yamilka PRN Reason Stop Dose Admin Aspirin 81 mg 07/27/19 10:00 07/29/19 10:00 Asa - PO 81 mg DAILY ROSANNE Administration Atorvastatin Calcium 10 mg 07/26/19 22:00 07/28/19 21:57 Lipitor - PO 10 mg HS ROSANNE Administration Carbidopa/Levodopa 1 combo 07/27/19 17:00 07/29/19 06:56 Sinemet *Cr* 50/200 - PO 1 combo TID@0700,1200,1700 ROSANNE Administration Docusate Sodium 100 mg 07/27/19 14:00 07/29/19 06:56 Colace - PO 100 mg TID ROSANNE Administration Duloxetine HCl 60 mg 07/27/19 10:00 07/29/19 10:45 Cymbalta - PO 60 mg DAILY ROSANNE Administration Heparin Sodium (Porcine) 5,000 unit 07/28/19 14:00 07/29/19 06:56 Heparin - SQ 5,000 unit TID ROSANNE Administration Sodium Chloride 1,000 mls @ 55 mls/hr 07/26/19 16:15 07/27/19 16:30 Normal Saline - IV 55 mls/hr ASDIR ROSANNE Administration Insulin Aspart 1 vial 07/26/19 16:30 07/29/19 06:56 Novolog Vial Sliding Scale - SQ Not Given TIDAC [facility] Protocol Magnesium Hydroxide 30 ml 07/26/19 16:50 07/27/19 06:50 Milk Of Magnesia - PO 30 ml Q8H PRN Administration INDIGESTION Polyethylene Glycol 17 gm 07/28/19 10:00 07/29/19 10:45 Miralax (For Daily Use) - PO 17 gm DAILY ROSANNE Administration Potassium Chloride 20 meq 07/27/19 10:00 07/29/19 10:45 K-Dur - PO 20 meq DAILY ROSANNE Administration ASSESSMENT/PLAN: Patient is a 88 yr old female with a past medical hx of diabetes,HDL,,HTN, spinal stenosis, Parkinsonism, lives at home who comes to the ED with c/o Rt sided UE weakness. *Right arm weakness -neuro checks - CT Head: No acute intracranial pathology, mod atropthy -carotid US: Rt Carotid no obstruction atherosclerosis +, Left poorly visualised due to anatomical issue.) - Neuro note appreciated -pt refused cervical spine and brain MRI, agreed for CT cervical spine - on ASA, Statin - Echo done, reviewed, EF 50-60% - tele monitoring - neuro checks - HEARING AID SPECIALIST done: rec Continue with diabetic heart healthy solids with thin liquids as tolerated - aspiration precautions #Soft tissue nodule vs Lymph node on CT scan -follow up ENT as outpt * DM - Hgb Alc 6.6 - FS AC& HS - Lispro sliding scale - will hold off home dose Metformin *Constipation -no pain or clinical signs or symptoms of obstruction -s/p Citrate of mg, MOM - no effect - tap water enema - will cont on laxatives - CT abd/pelvis -moderate fecal residual, no obstruction *HTN- BP stable -Hold BP meds observe *Parkinson disease-stable - Sinemet TID -Sinemet ER dose D/C by Neuro -informed daughter *Dyslipidemia - c/w Statin *Generalized weakness -PT/OT evaluation done, rec PT, OT services vs SNF *Parkinson disease - c/w sinemet * VTE Heparin SQ * F/E/N: Diabetic low fat diet Visit type - Emergency Visit Emergency Visit: Yes ED Registration Date: 07/26/19 Care time: The patient presented to the Emergency Department on the above date and was hospitalized for further evaluation of their emergent condition. - New Patient This patient is new to me today: Yes Date on this admission: 07/29/19 - Critical Care Critical Care patient: No
[2019-07-29] MEDS ORDERED: BISACODYL 5 MG TABLET.DR (FP) PO ONE (13:15)
[2019-07-29] MEDS: ATORVASTATIN CA 10 MG TABLET (FP) PO SCH (22:41)
[2019-07-30] MEDS: HEPARIN NA (PORCINE) 5,000 UNITS/ML 1ML VIAL SQ SCH ×3 (06:45→22:16)
[2019-07-30] MEDS: DOCUSATE SODIUM 100 MG CAPSULE (FP) PO SCH ×3 (06:45→22:16)
[2019-07-30] MEDS: INSULIN SLIDING SCALE (NOVOLOG) 1 VIAL SQ SCH ×3 (08:12→18:19)
[2019-07-30 08:17] LABS: ALBUMIN 3.8 g/dl (3.4-5.0); BILIRUBIN,TOTAL 1.2 mg/dl (0.2-1); CALCIUM 9.1 mg/dl (8.5-10); CREATININE 0.8 mg/dl (0.55-1.3); MAGNESIUM 2.4 mg/dL (1.8-2.4); POTASSIUM 5.1 mmol/L (3.5-5.1); TOT PROT 6.2 g/dl (6.4-8.2)
[2019-07-30 08:20] LABS: BASO % 0.4 % (0-2.0); EOS % 2.4 % (0-4.5); HEMATOCRIT 36.9 % (32.4-45.2); HEMOGLOBIN 11.9 GM/dl (10.7-15.3); LYMPH % 23.1 % (8-40); MCH 29.2 pg (25.7-33.7); MCHC 32.3 g/dl (32.0-36.0); MEAN CELL VOLUME 90.5 fl (80-96); MEAN PLT VOLUME 9.3 fl (7.5-11.1); NEUT % 67.1 % (42.8-82.8); PLATELET COUNT 136 K/MM3 (134-434); RBC 4.08 M/mm3 (3.60-5.2); RDW 15.7 % (11.6-15.6); WHITE BLOOD COUNT 3.8 K/mm3 (4.0-10.8)
[2019-07-30] MEDS: POLYETHYLENE GLYCOL 3350 119 GM BTL PO SCH (09:37)
[2019-07-30] MEDS: DULoxetine HCL 30 MG CAPSULE.DR PO SCH (09:38)
[2019-07-30] MEDS: POTASSIUM CHLORIDE TABS 20 MEQ TABLET.ER (FP) PO SCH (09:38)
[2019-07-30] MEDS: ASPIRIN 81 MG CHEWABLE TABLETS PO SCH (09:38)
[2019-07-30] MEDS ORDERED: MINERAL OIL ENEMA 133 ML ENEMA PR ONE (10:03)
[2019-07-30] MEDS ORDERED: SODIUM PHOSPHATE/NA BIPHOS 133 ML ENEMA PR ONE (15:00)
[2019-07-30] MEDS ORDERED: PEG/ELECTROLYTES (NULYTELY) 4,000 ML BOTTLE PO ONE (15:45)
[2019-07-30] MEDS ORDERED: MAGNESIUM HYDROX 2400MG/30ML ORAL SUSPENSION 30 ML CUP PO PRN ×2 (17:08→20:22)
[2019-07-30] MEDS ORDERED: SODIUM CHLORIDE 1,000 ML IV SCH (17:08)
[2019-07-30] MEDS ORDERED: PEG 3350/NA SULF BICARB CL/KCL 4000 ML SOLN.RECON PO ONE (17:08)
--- NOTE | 2019-07-30 17:22 | PN ---
Physical Exam: SUBJECTIVE: Patient seen and examined. denies abdominal pain, discomfort or nausea/vomiting. OBJECTIVE: Patient is a 88 yr old female with a past medical hx of diabetes, dyslipedemia, parkinsonism, lives at home who comes to the ED with c/o Rt sided UE weakness. patient is unable to lift her Rt arm and shoulder or unable to hold walker. she called her brother and came to Ed for evaluation. She denies any sensory change, falls or trauma. Neurology was consulted recommended stroke w/u. Patient further reported constipation x 2 weeks and has been transferred to [facility] for further management. drinking golytely. ct spine: with soft tissue nodule, ? thyroid tissue vs lymph node. will need outpt follow up Vital Signs Period Temp Pulse Resp BP Sys/Chery Pulse Ox Last 24 Hr 97.5 F-98.6 F 59-76 17-20 122-147/53-61 94-99 GENERAL: The patient is awake, alert, and fully oriented, in no acute distress. HEAD: Normal with no signs of trauma. EYES: PERRL, extraocular movements intact, sclera anicteric, conjunctiva clear. No ptosis. ENT: Ears normal, nares patent, oropharynx clear without exudates, moist mucous membranes. NECK: Trachea midline, full range of motion, supple. LUNGS: Breath sounds equal, clear to auscultation bilaterally HEART: Regular rate and rhythm ABDOMEN: Soft, nontender, nondistended, normoactive bowel sounds, no abdominal pain. EXTREMITIES: no edema. NEUROLOGICAL: Normal speech, gait not observed. PSYCH: Normal mood, normal affect. SKIN: Warm, dry, normal turgor, no rashes or lesions noted Laboratory Results - last 24 hr 07/30/19 07/30/19 07/30/19 06:43 07:20 07:20 WBC 3.8 L RBC 4.08 Hgb 11.9 Hct 36.9 MCV 90.5 MCH 29.2 MCHC 32.3 RDW 15.7 H Plt Count 136 MPV 9.3 Absolute Neuts (auto) 2.5 Neutrophils % 67.1 Lymphocytes % 23.1 Monocytes % 7.0 Eosinophils % 2.4 Basophils % 0.4 Sodium 140 Potassium 5.1 Chloride 102 Carbon Dioxide 28 Anion Gap 10 BUN 11.0 Creatinine 0.8 Est GFR (CKD-EPI)AfAm 75.76 Est GFR (CKD-EPI)NonAf 65.36 POC Glucometer 131 Random Glucose 133 H Calcium 9.1 Magnesium 2.4 Total Bilirubin 1.2 H AST 17 ALT 16 Alkaline Phosphatase 55 Total Protein 6.2 L Albumin 3.8 07/30/19 13:45 WBC RBC Hgb Hct MCV MCH MCHC RDW Plt Count MPV Absolute Neuts (auto) Neutrophils % Lymphocytes % Monocytes % Eosinophils % Basophils % Sodium Potassium Chloride Carbon Dioxide Anion Gap BUN Creatinine Est GFR (CKD-EPI)AfAm Est GFR (CKD-EPI)NonAf POC Glucometer 121 Random Glucose Calcium Magnesium Total Bilirubin AST ALT Alkaline Phosphatase Total Protein Albumin Active Medications Generic Name Dose Route Start Last Admin Trade Name Freq PRN Reason Stop Dose Admin Aspirin 81 mg 07/31/19 10:00 Asa - PO DAILY [facility] Atorvastatin Calcium 10 mg 07/30/19 22:00 Lipitor - PO HS ROSANNE Carbidopa/Levodopa 1 combo 07/31/19 07:00 Sinemet *Cr* 50/200 - PO TID@0700,1200,1700 [facility] Docusate Sodium 100 mg 07/30/19 22:00 Colace - PO TID ROSANNE Duloxetine HCl 60 mg 07/31/19 10:00 Cymbalta - PO DAILY [facility] Heparin Sodium (Porcine) 5,000 unit 07/30/19 22:00 Heparin - SQ TID [facility] Sodium Chloride 1,000 mls @ 55 mls/hr 07/30/19 17:08 Normal Saline - IV ASDIR [facility] Insulin Aspart 1 vial 07/31/19 07:00 Novolog Vial Sliding Scale - SQ TIDAC [facility] Protocol Magnesium Hydroxide 30 ml 07/30/19 17:08 Milk Of Magnesia - PO Q8H PRN INDIGESTION Polyethylene Glycol 17 gm 07/31/19 10:00 Miralax (For Daily Use) - PO DAILY ROSANNE Potassium Chloride 20 meq 07/31/19 10:00 K-Dur - PO DAILY [facility] ASSESSMENT/PLAN: Problem List - Problems (1) Right arm weakness Assessment/Plan: for mri of cervical spine and brain mri, but patient refusing these tests. neuro checks - CT Head: No acute intracranial pathology, mod atropthy - carotid US: Rt Carotid no obstruction atherosclerosis +, Left poorly visualized due to anatomical issue.) - Neuro note appreciated - on ASA, Statin - Echo done, reviewed, EF 50-60% - [employer] done: rec Continue with diabetic heart healthy solids with thin liquids as tolerated - aspiration precautions Code(s): R29.898 - OTH SYMPTOMS AND SIGNS INVOLVING THE MUSCULOSKELETAL SYSTEM (2) Constipation Assessment/Plan: constipation reported x 2 weeks, imaging with moderate amt of retained stool. abdomen soft, without nausea/vomiting. drinking golytely GI consulted Code(s): K59.00 - CONSTIPATION, UNSPECIFIED (3) Generalized weakness Assessment/Plan: physical therapy ordered PT/OT evaluation Code(s): R53.1 - WEAKNESS (4) Parkinson disease Assessment/Plan: on sinemet Code(s): G20 - PARKINSON'S DISEASE Visit type - Emergency Visit Emergency Visit: Yes ED Registration Date: 07/30/19 Care time: The patient presented to the Emergency Department on the above date and was hospitalized for further evaluation of their emergent condition. - New Patient This patient is new to me today: No - Critical Care Critical Care patient: No - Discharge Referral Referred to [facility] Med P.C.: No
[2019-07-30] MEDS: SODIUM CHLORIDE 1,000 ML IV SCH ×3 (18:15→22:23)
[2019-07-30] MEDS ORDERED: HEPARIN NA (PORCINE) 5,000 UNITS/ML 1ML VIAL SQ SCH (22:00)
[2019-07-30] MEDS ORDERED: DOCUSATE SODIUM 100 MG CAPSULE (FP) PO SCH (22:00)
[2019-07-30] MEDS ORDERED: ATORVASTATIN CA 10 MG TABLET (FP) PO SCH (22:00)
[2019-07-30] MEDS: ATORVASTATIN CA 10 MG TABLET (FP) PO SCH (22:16)
[2019-07-31] MEDS: INSULIN SLIDING SCALE (NOVOLOG) 1 VIAL SQ SCH ×3 (06:09→17:13)
[2019-07-31] MEDS: DOCUSATE SODIUM 100 MG CAPSULE (FP) PO SCH ×3 (06:10→21:56)
[2019-07-31] MEDS: HEPARIN NA (PORCINE) 5,000 UNITS/ML 1ML VIAL SQ SCH ×3 (06:10→21:57)
[2019-07-31] MEDS ORDERED: INSULIN SLIDING SCALE (NOVOLOG) 1 VIAL SQ SCH (07:00)
--- NOTE | 2019-07-31 08:50 | PN ---
Progress Note, Physician History of Present Illness: Patient is a 88 yr old female with a past medical hx of diabetes, dyslipedemia, parkinsonism, lives at home presentinh to [facility] with c/o Rt sided UE weakness. patient is unable to lift her Rt arm and shoulder or unable to hold walker. She denies any sensory change, falls or trauma. Neurology was consulted recommended stroke w/u. Patient further reported constipation x 2 weeks and has been transferred to [facility] for further management. - Current Medication List Current Medications: Active Medications Aspirin (Asa -) 81 mg PO DAILY [facility] Atorvastatin Calcium (Lipitor -) 10 mg PO HS [facility] Last Admin: 07/30/19 22:16 Dose: 10 mg Carbidopa/Levodopa (Sinemet *Cr* 50/200 -) 1 combo PO TID@0700,1200,1700 [facility] Last Admin: 07/31/19 06:10 Dose: 1 combo Docusate Sodium (Colace -) 100 mg PO TID [facility] Last Admin: 07/31/19 06:10 Dose: 100 mg Duloxetine HCl (Cymbalta -) 60 mg PO DAILY [facility] Heparin Sodium (Porcine) (Heparin -) 5,000 unit SQ TID [facility] Last Admin: 07/31/19 06:10 Dose: 5,000 unit Sodium Chloride (Normal Saline -) 1,000 mls @ 55 mls/hr IV ASDIR [facility] Last Admin: 07/30/19 22:23 Dose: Not Given Insulin Aspart (Novolog Vial Sliding Scale -) 1 vial SQ TIDAC [facility]; Protocol Last Admin: 07/31/19 06:09 Dose: Not Given Magnesium Hydroxide (Milk Of Magnesia -) 30 ml PO Q8H PRN PRN Reason: INDIGESTION Polyethylene Glycol (Miralax (For Daily Use) -) 17 gm PO DAILY [facility] Potassium Chloride (K-Dur -) 20 meq PO DAILY [facility] - Objective Vital Signs: Vital Signs Temperature 97.9 F 07/31/19 06:00 Pulse Rate 51 L 07/31/19 06:00 Respiratory Rate 18 07/31/19 06:00 Blood Pressure 119/78 07/31/19 06:00 O2 Sat by Pulse Oximetry (%) 96 07/30/19 21:00 Constitutional: Yes: Well Nourished, No Distress, Calm Eyes: Yes: WNL, Conjunctiva Clear HENT: Yes: WNL, Atraumatic, Normocephalic Neck: Yes: WNL, Supple, Trachea Midline Cardiovascular: Yes: WNL, Regular Rate and Rhythm Respiratory: Yes: WNL, Regular, CTA Bilaterally Gastrointestinal: Yes: Normal Bowel Sounds, Soft, Abdomen, Obese ...Rectal Exam: Yes: Deferred Genitourinary: Yes: WNL Breast(s): Yes: WNL Musculoskeletal: Yes: Muscle Weakness (generalized) Extremities: Yes: WNL Edema: Yes Edema: LLE: Trace, RLE: Trace Peripheral Pulses WNL: Yes Peripheral Pulses: Left Radial: 2+, Right Radial: 2+, Left Doralis Pedis: 2+, Right Dorsalis Pedis: 2+, Left Femoral: 2+, Right Femoral: 2+ Integumentary: Yes: WNL Neurological: Yes: WNL, Alert, Oriented ...Motor Strength: LLE (genralized weakness), RLE Psychiatric: Yes: WNL Labs: CBC, BMP 07/30/19 07:20 07/30/19 07:20 INR, PTT INR 1.18 (0.82-1.09) 07/26/19 14:55 - ....Imaging Cat Scan: Report Reviewed (with soft tissue nodule, ? thyroid tissue vs lymph node. will need outpt follow up CT A/P: moderate fecal residual, no obstruction ) Ultrasound: Report Reviewed (Carotid duplex doppler: Rt Carotid no obstruction atherosclerosis +, Left poorly visualised due to anatomical issue) MRI: Report Reviewed (CT of head (reviewed): Moderate, diffuse atrophy with scattered microvascular changes. No discrete CVA) Problem List - Problems (1) Prophylactic measure Assessment/Plan: FEN high fiber/diabeteic/low salt diet no additional IVF needed monitor electrolytes DVT hepaRIN SQ DISPO maintain as in patient full code discharge planning-family requesting short term rehab Code(s): Z29.9 - ENCOUNTER FOR PROPHYLACTIC MEASURES, UNSPECIFIED (2) Constipation Assessment/Plan: appreciate GI consultation Golytle completetd by pt c/w miralix increasing to BID weekly tap water enemas high fiber diet outpt GI f/u Code(s): K59.00 - CONSTIPATION, UNSPECIFIED (3) Generalized weakness Assessment/Plan: c/w PT discharge to rehab Code(s): R53.1 - WEAKNESS (4) Right arm weakness Assessment/Plan: c/w PT Code(s): R29.898 - OTH SYMPTOMS AND SIGNS INVOLVING THE MUSCULOSKELETAL SYSTEM (5) Diabetes Assessment/Plan: BGM with novolog sliding scale Code(s): E11.9 - TYPE 2 DIABETES MELLITUS WITHOUT COMPLICATIONS Qualifiers: Diabetes mellitus type: type 2 (6) HTN (hypertension) Assessment/Plan: normotensive continue to monitor Code(s): I10 - ESSENTIAL (PRIMARY) HYPERTENSION (7) Parkinson disease Assessment/Plan: appreciate neurology consultation c/w sinemet fall precautions Code(s): G20 - PARKINSON'S DISEASE Visit type - Emergency Visit Emergency Visit: Yes ED Registration Date: 07/30/19 Care time: The patient presented to the Emergency Department on the above date and was hospitalized for further evaluation of their emergent condition. - New Patient This patient is new to me today: Yes Date on this admission: 07/31/19 - Critical Care Critical Care patient: No - Discharge Referral Referred to [facility] Med P.C.: No
[2019-07-31 09:08] LABS: BASO % 0.6 % (0-2.0); EOS % 2.1 % (0-4.5); HEMATOCRIT 37.6 % (32.4-45.2); HEMOGLOBIN 12.4 GM/dL (10.7-15.3); LYMPH % 15.1 % (8-40); MCH 29.8 pg (25.7-33.7); MCHC 33.1 g/dl (32.0-36.0); MEAN CELL VOLUME 90.2 fl (80-96); MEAN PLT VOLUME 9.3 fl (7.5-11.1); MONO % 5.7 % (3.8-10.2); NEUT % 76.5 % (42.8-82.8); PLATELET COUNT 127 K/MM3 (134-434); RBC 4.17 M/mm3 (3.60-5.2); RDW 16.6 % (11.6-15.6); WHITE BLOOD COUNT 4.1 K/mm3 (4.0-10.0)
[2019-07-31 09:33] LABS: ALBUMIN 3.8 g/dl (3.4-5.0); BILIRUBIN,TOTAL 1.5 mg/dL (0.2-1); BLOOD UREA NITROGEN 9.5 mg/dL (7-18); CALCIUM 8.8 mg/dL (8.5-10.1); CREATININE 0.7 mg/dL (0.55-1.3); MAGNESIUM 2.5 mg/dL (1.8-2.4); POTASSIUM 4.7 mmol/L (3.5-5.1); TOT PROT 6.4 g/dl (6.4-8.2)
[2019-07-31] MEDS ORDERED: PT OWN MED DRAWER 7, Y5N ONE (09:49)
[2019-07-31] MEDS: POTASSIUM CHLORIDE TABS 20 MEQ TABLET.ER (FP) PO SCH (09:55)
[2019-07-31] MEDS: DULoxetine HCL 30 MG CAPSULE.DR PO SCH (09:55)
[2019-07-31] MEDS: ASPIRIN 81 MG CHEWABLE TABLETS PO SCH (09:55)
[2019-07-31] MEDS ORDERED: DULoxetine HCL 30 MG CAPSULE.DR PO SCH (10:00)
[2019-07-31] MEDS ORDERED: ASPIRIN 81 MG CHEWABLE TABLETS PO SCH (10:00)
[2019-07-31] MEDS ORDERED: POLYETHYLENE GLYCOL 3350 119 GM BTL PO SCH ×2 (10:00)
[2019-07-31] MEDS ORDERED: POTASSIUM CHLORIDE TABS 20 MEQ TABLET.ER (FP) PO SCH (10:00)
--- NOTE | 2019-07-31 13:09 | CONS ---
GASTROINTESTINAL CONSULTATION DATE OF CONSULTATION: DATE OF DICTATION: 07/31/2019 HISTORY OF PRESENT ILLNESS: The patient is an 88-year-old, female, past medical history of type 2 diabetes, dyslipidemia, Parkinson disease, who presented to the hospital with right upper extremity weakness. As per the daughter, she has been constipated for over 2 weeks while at home. She denies using any narcotics at home, no other new medications, and she does ambulate. Patient denies any abdominal pain, nausea, vomiting, blood in the stool, weight loss, fevers or chills. She had a colonoscopy many years ago which she states was within normal limits. While she was here at the hospital, she was given GoLYTELY. She drank a half a gallon yesterday and had some bowel movements and she is going to complete the gallon today. PAST MEDICAL AND SURGICAL HISTORY: As listed in the HPI with the addition of cataract removal. SOCIAL HISTORY: Does not smoke, drink or use drugs. ALLERGIES: No known drug allergies. HOME MEDICATIONS: Reviewed. Include Lipitor, Sinemet, Lasix, K-Dur, vitamin E, vitamin B, metformin, Glucophage. FAMILY HISTORY: No history of GI or gynecologic malignancy. REVIEW OF SYSTEMS: As per the HPI. PHYSICAL EXAMINATION: Vital Signs: Temperature 97, pulse 51, blood pressure 119/ , pulse oximetry 96% on room air. General: In no acute distress. Pleasant female. HEENT: Anicteric sclera. Cardiovascular: S1, S2. Regular rate and rhythm. Lungs: Bilaterally clear to auscultation. Abdomen: Soft and nontender. Extremities: No edema. LABORATORIES: White blood cell count 4.1, hemoglobin 12 and hematocrit 37, MCV 90, platelet count 127. INR 1.1. Sodium 140, potassium 4.7, carbon dioxide 25, chloride 109, BUN 9.5, creatinine 0.7, glucose 118. Total bilirubin 1.5, AST 30, ALT 9, alkaline phosphatase 71. Urine positive nitrites on the . She had an abdominal x-ray, followed by an abdominal CAT scan which was done with contrast and revealed multiple gallstones without evidence of acute cholecystitis, right hepatic simple cyst measuring 3.9 cm, bilateral renal-cortical scarring mainly on the left, approximately 1.6-cm left midrenal cyst, moderate amount of fecal residue in the colon with sparing of the sigmoid colon suggestive of constipation. IMPRESSION: Constipation. RECOMMENDATIONS: She should complete the gallon of GoLYTELY. She should have a high-fiber diet and her outpatient regimen should consist of MiraLAX twice a day. If she cannot tolerate the MiraLAX, she can have senna 2 tablets p.o. nightly and she should also have tap water enemas weekly for cleansing purposes. She should also follow up with GI as an outpatient. DO JIGAR MENDIETA/[id number]
[2019-07-31] MEDS: SODIUM CHLORIDE 1,000 ML IV SCH (14:31)
--- NOTE | 2019-07-31 15:20 | PN ---
Progress Note, [employer] - Note Progress Note: Selected Entries 07/29/19 07/29/19 07/29/19 05:52 09:48 14:20 Breakfast 75% Lunch 75% Supper Temperature 97.9 F 98.8 F 07/29/19 07/29/19 07/29/19 17:00 18:00 22:00 Breakfast Lunch Supper 50% Temperature 98.3 F 97.6 F 07/30/19 07/30/19 07/30/19 06:41 14:46 23:21 Breakfast Lunch Supper Temperature 97.5 F L 98.6 F 98.1 F 07/31/19 06:00 Breakfast Lunch Supper Temperature 97.9 F Laboratory Tests 07/30/19 07/31/19 07:20 08:25 WBC 3.8 L 4.1 Pt on reg diet/thin liquid
[2019-07-31] MEDS: ATORVASTATIN CA 10 MG TABLET (FP) PO SCH (21:56)
[2019-07-31] MEDS: POLYETHYLENE GLYCOL 3350 119 GM BTL PO SCH (21:57)
[2019-08-01] MEDS: DOCUSATE SODIUM 100 MG CAPSULE (FP) PO SCH (06:28)
[2019-08-01] MEDS: INSULIN SLIDING SCALE (NOVOLOG) 1 VIAL SQ SCH ×2 (06:28→11:10)
[2019-08-01] MEDS: SODIUM CHLORIDE 1,000 ML IV SCH (06:28)
[2019-08-01] MEDS: HEPARIN NA (PORCINE) 5,000 UNITS/ML 1ML VIAL SQ SCH (06:29)
--- NOTE | 2019-08-01 07:53 | PN ---
Progress Note, Physician History of Present Illness: Patient is a 88 yr old female with a past medical hx of diabetes, dyslipedemia, parkinsonism, lives at home presentinh to [facility] with c/o Rt sided UE weakness. patient is unable to lift her Rt arm and shoulder or unable to hold walker. She denies any sensory change, falls or trauma. Neurology was consulted recommended stroke w/u. Patient further reported constipation x 2 weeks and has been transferred to [facility] for further management. - Current Medication List Current Medications: Active Medications Aspirin (Asa -) 81 mg PO DAILY [facility] Last Admin: 07/31/19 09:55 Dose: 81 mg Atorvastatin Calcium (Lipitor -) 10 mg PO HS [facility] Last Admin: 07/31/19 21:56 Dose: 10 mg Carbidopa/Levodopa (Sinemet *Cr* 50/200 -) 1 combo PO TID@0700,1200,1700 [facility] Last Admin: 08/01/19 06:28 Dose: 1 combo Docusate Sodium (Colace -) 100 mg PO TID [facility] Last Admin: 08/01/19 06:28 Dose: 100 mg Duloxetine HCl (Cymbalta -) 60 mg PO DAILY [facility] Last Admin: 07/31/19 09:55 Dose: 60 mg Heparin Sodium (Porcine) (Heparin -) 5,000 unit SQ TID [facility] Last Admin: 08/01/19 06:29 Dose: 5,000 unit Sodium Chloride (Normal Saline -) 1,000 mls @ 55 mls/hr IV ASDIR [facility] Last Admin: 08/01/19 06:28 Dose: 55 mls/hr Insulin Aspart (Novolog Vial Sliding Scale -) 1 vial SQ TIDAC [facility]; Protocol Last Admin: 08/01/19 06:28 Dose: Not Given Magnesium Hydroxide (Milk Of Magnesia -) 30 ml PO Q8H PRN PRN Reason: INDIGESTION Polyethylene Glycol (Miralax (For Daily Use) -) 17 gm PO BID [facility] Last Admin: 07/31/19 21:57 Dose: 17 gm Potassium Chloride (K-Dur -) 20 meq PO DAILY [facility] Last Admin: 07/31/19 09:55 Dose: 20 meq - Objective Vital Signs: Vital Signs Temperature 98.7 F 08/01/19 06:00 Pulse Rate 58 L 08/01/19 06:00 Respiratory Rate 18 08/01/19 06:00 Blood Pressure 122/51 L 08/01/19 06:00 O2 Sat by Pulse Oximetry (%) 96 07/31/19 21:00 Labs: CBC, BMP 07/31/19 08:25 07/31/19 08:25 INR, PTT INR 1.18 (0.82-1.09) 07/26/19 14:55 Problem List - Problems (1) Prophylactic measure Code(s): Z29.9 - ENCOUNTER FOR PROPHYLACTIC MEASURES, UNSPECIFIED (2) Constipation Code(s): K59.00 - CONSTIPATION, UNSPECIFIED (3) Generalized weakness Code(s): R53.1 - WEAKNESS (4) Right arm weakness Code(s): R29.898 - OTH SYMPTOMS AND SIGNS INVOLVING THE MUSCULOSKELETAL SYSTEM (5) Diabetes Code(s): E11.9 - TYPE 2 DIABETES MELLITUS WITHOUT COMPLICATIONS Qualifiers: Diabetes mellitus type: type 2 (6) HTN (hypertension) Code(s): I10 - ESSENTIAL (PRIMARY) HYPERTENSION (7) Parkinson disease Code(s): G20 - PARKINSON'S DISEASE
[2019-08-01 08:14] LABS: BASO % 0.4 % (0-2.0); EOS % 2.2 % (0-4.5); HEMOGLOBIN 11.2 GM/dL (10.7-15.3); LYMPH % 18.1 % (8-40); MCH 29.4 pg (25.7-33.7); MCHC 33.1 g/dl (32.0-36.0); MEAN PLT VOLUME 8.9 fl (7.5-11.1); MONO % 7.3 % (3.8-10.2); PLATELET COUNT 127 K/MM3 (134-434); RBC 3.82 M/mm3 (3.60-5.2); RDW 16.1 % (11.6-15.6)
[2019-08-01 08:57] LABS: ALBUMIN 3.5 g/dl (3.4-5.0); BLOOD UREA NITROGEN 11.8 mg/dL (7-18); CALCIUM 8.6 mg/dL (8.5-10.1); CREATININE 0.6 mg/dL (0.55-1.3); MAGNESIUM 2.3 mg/dL (1.8-2.4); POTASSIUM 4.4 mmol/L (3.5-5.1)
[2019-08-01] MEDS ORDERED: PT OWN MED DRAWER 7, Y5N ONE (09:22)
[2019-08-01 09:43] VITALS: BP 97/55; PULSE 70; TEMP 98.3
--- NOTE | 2019-08-01 09:48 | DS ---
Physical Exam: SUBJECTIVE: Patient seen and examined Patient is a 88 yr old female with a past medical hx of diabetes, dyslipedemia, parkinsonism, lives at home presentinh to [facility] with c/o Rt sided UE weakness. patient is unable to lift her Rt arm and shoulder or unable to hold walker. She denies any sensory change, falls or trauma. Neurology was consulted recommended stroke w/u. Patient further reported constipation x 2 weeks and has been transferred to [facility] for further management. OBJECTIVE: Vital Signs Period Temp Pulse Resp BP Sys/Chery Pulse Ox Last 24 Hr 98.2 F-98.8 F 58-74 18-18 97-150/43-81 96-97 PHYSICAL EXAM Constitutional: Yes: Well Nourished, No Distress, Calm Eyes: Yes: WNL, Conjunctiva Clear HENT: Yes: WNL, Atraumatic, Normocephalic Neck: Yes: WNL, Supple, Trachea Midline Cardiovascular: Yes: WNL, Regular Rate and Rhythm Respiratory: Yes: WNL, Regular, CTA Bilaterally Gastrointestinal: Yes: Normal Bowel Sounds, Soft, Abdomen, Obese ...Rectal Exam: Yes: Deferred Genitourinary: Yes: WNL Breast(s): Yes: WNL Musculoskeletal: Yes: Muscle Weakness (generalized) Extremities: Yes: WNL Edema: Yes Edema: LLE: Trace, RLE: Trace Peripheral Pulses WNL: Yes Peripheral Pulses: Left Radial: 2+, Right Radial: 2+, Left Doralis Pedis: 2+, Right Dorsalis Pedis: 2+, Left Femoral: 2+, Right Femoral: 2+ Integumentary: Yes: WNL Neurological: Yes: WNL, Alert, Oriented ...Motor Strength: LLE (genralized weakness), RLE Psychiatric: Yes: WNL LABS Laboratory Results - last 24 hr 07/31/19 07/31/19 08/01/19 11:37 17:03 06:25 WBC RBC Hgb Hct MCV MCH MCHC RDW Plt Count MPV Absolute Neuts (auto) Neutrophils % Lymphocytes % Monocytes % Eosinophils % Basophils % Nucleated RBC % Sodium Potassium Chloride Carbon Dioxide Anion Gap BUN Creatinine Est GFR (CKD-EPI)AfAm Est GFR (CKD-EPI)NonAf POC Glucometer 115 120 107 Random Glucose Calcium Magnesium Total Bilirubin AST ALT Alkaline Phosphatase Total Protein Albumin 08/01/19 08/01/19 07:22 07:22 WBC 3.0 L RBC 3.82 Hgb 11.2 Hct 34.0 MCV 89.0 MCH 29.4 MCHC 33.1 RDW 16.1 H Plt Count 127 L MPV 8.9 Absolute Neuts (auto) 2.1 Neutrophils % 72.0 Lymphocytes % 18.1 Monocytes % 7.3 Eosinophils % 2.2 Basophils % 0.4 Nucleated RBC % 0 Sodium 140 Potassium 4.4 Chloride 110 H Carbon Dioxide 24 Anion Gap 6 L BUN 11.8 Creatinine 0.6 Est GFR (CKD-EPI)AfAm 93.66 Est GFR (CKD-EPI)NonAf 80.81 POC Glucometer Random Glucose 130 H Calcium 8.6 Magnesium 2.3 Total Bilirubin 1.0 AST 29 ALT 12 L Alkaline Phosphatase 63 Total Protein 6.0 L Albumin 3.5 HOSPITAL COURSE: Date of Admission:07/30/19 Date of Discharge: 08/01/19 - ....Imaging Cat Scan: Report Reviewed (with soft tissue nodule, ? thyroid tissue vs lymph node. will need outpt follow up CT A/P: moderate fecal residual, no obstruction ) Ultrasound: Report Reviewed (Carotid duplex doppler: Rt Carotid no obstruction atherosclerosis +, Left poorly visualised due to anatomical issue) MRI: Report Reviewed (CT of head (reviewed): Moderate, diffuse atrophy with scattered microvascular changes. No discrete CVA) Problem List - Problems (1) Prophylactic measure Assessment/Plan: FEN resume high fiber/diabeteic/low salt diet no additional IVF needed DVT continue with rehab DISPO Discharge to [facility] facility Code(s): Z29.9 - ENCOUNTER FOR PROPHYLACTIC MEASURES, UNSPECIFIED (2) Constipation Assessment/Plan: Resolved Golytle completetd by pt c/w miralix increasing to BID on discharge weekly tap water enemas high fiber diet outpt GI f/u Code(s): K59.00 - CONSTIPATION, UNSPECIFIED (3) Generalized weakness Assessment/Plan: c/w PT discharge to rehab Code(s): R53.1 - WEAKNESS (4) Right arm weakness Assessment/Plan: c/w PT Code(s): R29.898 - OTH SYMPTOMS AND SIGNS INVOLVING THE MUSCULOSKELETAL SYSTEM (5) Diabetes Assessment/Plan: BGM with novolog sliding scale resume oral hypoglycemics Code(s): E11.9 - TYPE 2 DIABETES MELLITUS WITHOUT COMPLICATIONS Qualifiers: Diabetes mellitus type: type 2 (6) HTN (hypertension) Assessment/Plan: normotensive continue to monitor Code(s): I10 - ESSENTIAL (PRIMARY) HYPERTENSION (7) Parkinson disease Assessment/Plan: Seen by neurology c/w sinemet fall precautions Code(s): G20 - PARKINSON'S DISEASE (8) 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 Minutes to complete discharge: 45 Discharge Summary Problems reviewed: Yes Reason For Visit: WEAKNESS/PARKINSON'S DISEASE/CVA Current Active Problems Constipation (Acute) Dyslipidemia (Acute) Generalized weakness (Acute) Prophylactic measure (Acute) Right arm weakness (Acute) Hospital Course: HOSPITAL COURSE: Date of Admission:07/30/19 Date of Discharge: 08/01/19 - ....Imaging Cat Scan: Report Reviewed (with soft tissue nodule, ? thyroid tissue vs lymph node. will need outpt follow up CT A/P: moderate fecal residual, no obstruction ) Ultrasound: Report Reviewed (Carotid duplex doppler: Rt Carotid no obstruction atherosclerosis +, Left poorly visualised due to anatomical issue) MRI: Report Reviewed (CT of head (reviewed): Moderate, diffuse atrophy with scattered microvascular changes. No discrete CVA) Problem List - Problems (1) Prophylactic measure Assessment/Plan: FEN resume high fiber/diabeteic/low salt diet no additional IVF needed DVT continue with rehab DISPO Discharge to [facility] Code(s): Z29.9 - ENCOUNTER FOR PROPHYLACTIC MEASURES, UNSPECIFIED (2) Constipation Assessment/Plan: Resolved Golytle completetd by pt c/w miralix increasing to BID on discharge weekly tap water enemas high fiber diet outpt GI f/u Code(s): K59.00 - CONSTIPATION, UNSPECIFIED (3) Generalized weakness Assessment/Plan: c/w PT discharge to rehab Code(s): R53.1 - WEAKNESS (4) Right arm weakness Assessment/Plan: c/w PT Code(s): R29.898 - OTH SYMPTOMS AND SIGNS INVOLVING THE MUSCULOSKELETAL SYSTEM (5) Diabetes Assessment/Plan: BGM with novolog sliding scale resume oral hypoglycemics Code(s): E11.9 - TYPE 2 DIABETES MELLITUS WITHOUT COMPLICATIONS Qualifiers: Diabetes mellitus type: type 2 (6) HTN (hypertension) Assessment/Plan: normotensive continue to monitor Code(s): I10 - ESSENTIAL (PRIMARY) HYPERTENSION (7) Parkinson disease Assessment/Plan: Seen by neurology c/w sinemet fall precautions Code(s): G20 - PARKINSON'S DISEASE (8) 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 seen on MRI may be contributing to arm weakness continue to rehab to increase strength pain management with NSAIDS [facility] Condition: Improved - Instructions Diet, Activity, Other Instructions: High fiber diet weekly Tap water enemas Follow up with your GI doctor after you complete rehab Referrals: Seferino Valentino MD [Primary Care Provider] - - Home Medications Comprehensive Discharge Medication List: Ambulatory Orders Atorvastatin Ca [Lipitor] 10 mg PO HS 01/20/17 Carbidopa/Levodopa [Carbidopa-Levo 25-100 mg Odt] 2 tab PO TID 01/20/17 Furosemide [Lasix] 40 mg PO DAILY 01/20/17 Potassium Chloride [K-Dur -] 20 meq PO DAILY 01/20/17 Ubidecarenone/Vitamin E [Co Q-10 50 mg Softgel] 50 mg PO DAILY 01/20/17 Vitamin B Complex [Ultra B-100 Complex] 1 each PO DAILY 01/20/17 metFORMIN HCL [Metformin HCl] 1,000 mg PO DAILY 01/20/17 Methenamine Hippurate [Hiprex [Nf] -] 1 gm PO DAILY 06/28/17 Cholecalciferol (Vitamin D3) [Vitamin D3 -] 1,000 unit PO DAILY 07/26/19 Duloxetine HCl [Cymbalta] 60 mg PO DAILY 07/26/19 Metformin HCl [Glucophage] 500 mg PO HS 07/26/19 Aspirin [ASA -] 81 mg PO DAILY tab.chew 08/01/19 Carbidopa/Levodopa *Cr* 50/200 [Sinemet *Cr* 50/200 -] 1 combo PO TID@0700,1200, 1700 tablet.er 08/01/19 Carbidopa/Levodopa *Cr* 50/200 [Sinemet *Cr* 50/200 -] 1 combo PO TID@0700,1200, 1700 tablet.er 08/01/19 Docusate Sodium [Colace -] 100 mg PO TID capsule 08/01/19 Insulin Sliding Scale [Novolog Vial Sliding Scale -] 1 vial SQ TIDAC units 03/14 Insulin Sliding Scale [Novolog Vial Sliding Scale -] 1 vial SQ TIDAC units 03/14 Magnesium Hydrox 2400MG/30Ml [Milk of Magnesia -] 30 ml PO Q8H PRN cup Polyethylene Glycol 3350 [Miralax 119 gm Btl -] 17 gm PO BID #1 bottle 08/01/19 Prescription Drug Monitoring Program (I-STOP) results: I-STOP not reviewed Problem List - Problems (1) Prophylactic measure Code(s): Z29.9 - ENCOUNTER FOR PROPHYLACTIC MEASURES, UNSPECIFIED (2) Constipation Code(s): K59.00 - CONSTIPATION, UNSPECIFIED (3) Generalized weakness Code(s): R53.1 - WEAKNESS (4) Right arm weakness Code(s): R29.898 - OTH SYMPTOMS AND SIGNS INVOLVING THE MUSCULOSKELETAL SYSTEM (5) Diabetes Code(s): E11.9 - TYPE 2 DIABETES MELLITUS WITHOUT COMPLICATIONS Qualifiers: Diabetes mellitus type: type 2 (6) HTN (hypertension) Code(s): I10 - ESSENTIAL (PRIMARY) HYPERTENSION (7) Parkinson disease Code(s): G20 - PARKINSON'S DISEASE (8) Radiculopathy affecting upper extremity Code(s): M54.10 - RADICULOPATHY, SITE UNSPECIFIED This patient is new to me today: No Emergency Visit: Yes ED Registration Date: 07/30/19 Care time: The patient presented to the Emergency Department on the above date and was hospitalized for further evaluation of their emergent condition. Critical Care patient: No - Discharge Referral Referred to [facility] Med P.C.: No
[2019-08-01] MEDS: POTASSIUM CHLORIDE TABS 20 MEQ TABLET.ER (FP) PO SCH (10:15)
[2019-08-01] MEDS: ASPIRIN 81 MG CHEWABLE TABLETS PO SCH (10:15)
[2019-08-01] MEDS: POLYETHYLENE GLYCOL 3350 119 GM BTL PO SCH (10:16)
[2019-08-01] MEDS: DULoxetine HCL 30 MG CAPSULE.DR PO SCH (10:16)
--- NOTE | 2019-08-01 12:13 | PN.GI ---
GI Progress Note Subjective: Feels well. No abdominal pain. Discussed with son. Chronic constipation with BM every 5-7 days longstanding and greater than 20 years duration. - Objective Vital Signs: Vital Signs Temperature 98.3 F 08/01/19 10:00 Pulse Rate 70 08/01/19 10:00 Respiratory Rate 18 08/01/19 10:00 Blood Pressure 97/55 L 08/01/19 10:00 O2 Sat by Pulse Oximetry (%) 97 08/01/19 09:00 Constitutional: Well Nourished, No Distress ...Auscultate: Yes: Normoactive Bowel Sounds ...Palpate: Yes: Soft. No: Tenderness Labs: CBC, BMP 08/01/19 07:22 08/01/19 07:22 INR, PTT INR 1.18 (0.82-1.09) 07/26/19 14:55 Assessment/Plan Chronic constipation. Miralax as suggested by Dr. Jaquez.
== END 2019-08-01 12:23 | DRG 74 ==
LOC: FER 13:37 → SUPCPDRO 13:37 → FM/S 15:21 → INTOOBSV 15:21 → J5S 07-30 17:16 → OBSVTOIN 07-30 18:04
PROVIDERS: ADMIT Internal Medicine; ATTEND Nurse Practitioner Acute Care
DX: M54.12 Radiculopathy, cervical region (principal); M48.02 Spinal stenosis, cervical region; I10 Essential (primary) hypertension; E11.9 Type 2 diabetes mellitus without complications; G20 Parkinson's disease; M54.5 Low back pain; E66.9 Obesity, unspecified; Z68.33 Body mass index [BMI] 33.0-33.9, adult; E78.5 Hyperlipidemia, unspecified; K59.09 Other constipation; R29.898 Other symptoms and signs involving the musculoskeletal system; R53.1 Weakness
CPT/HCPCS: 36415; 70450-TC; 72125-TC; 74019-TC-FY; 74177-TC; 80048; 80053; 80061; 81003; 81015; 82465; 82550; 82962; 83036; 83718; 83721; 83735; 84443; 84478; 84484; 85025; 85610; 85730; 93005; 93306-TC; 93880-TC; 97116-GP; 97163-GP; 99284-25; G0378; J1644; J7030